=== PATIENT | female | born 2000 | race Caucasian/White ===

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

== ENCOUNTER 2022-09-01 18:11 | Emergency (ER) | payer OTHER ==
--- OUTSIDE RECORDS SUMMARY | 2022-09-01 18:21 | XMS REPORT | Continuity of Care Document ---
:2000 Author Organization [facility] t Address [address] [place] [address] Care Team Providers Name Role Phone Isiah MCKAY, [facility] Primary Care Physician [phone] RADIOLOGY Attending Clinician Unavailable James Parker Attending Clinician Unavailable Doctor Unassigned, Paul Attending Clinician Unavailable ELIZABETH LI Attending Clinician Unavailable Elizabeth Ortiz Attending Clinician Carmen Flores Attending Clinician CARMEN GOSS Attending Clinician Unavailable CARMEN RODRIGUEZ Attending Clinician Unavailable James Parker Admitting Clinician Unavailable ELIZABETH LI Admitting Clinician Unavailable Payers Payer Name Policy Type Policy Number Effective Date Expiration Date Guido dubose [facility] [id number] 2022 00:00:00 [place] [id number] 2020 00:00:00 Problems Condition Condition Condition Status Onset Resolution Last Treating Co mments Source Name Details Category Date Date Treatment Clinician Date No known No known Disease Unive rs active active ity of problems problems [facility] Allergies, Adverse Reactions, Alerts Allergy Allergy Status Severity Reaction(s) Onset Inactive Treating Comm ents Source Name Type Date Date Clinician No Known DA Active [facility] 6-24 Clear s 00:00: [place] 00 [facility] No Known DA Active U [facility] Allergie 6-20 Clear s 00:00: [place] 00 [facility] NO KNOWN Drug Active Univers ALLERGIE Class ity of S [facility] Social History Social Habit Start Date Stop Date Quantity Comments Source Exposure to Not sure [facility] SARS-CoV-2 [facility] (event) Branch History of Passive smoker University of tobacco use [facility] Tobacco use and 2020-05-09 2020-05-09 Smokeless tobacco Un iversity of exposure 00:00:00 00:00:00 non-user [facility] Sex Assigned At [birth year] Universit y of 00:00:00 00:00:00 [facility] Smoking Status Start Date Stop Date Source Never smoked tobacco [facility] Medications Ordered Filled Start Stop Current Ordering Indication Dosage Frequency Signature Comments Components Source Medication Medication Date Date Medication? Clinician (SIG) Name Name TAKE ONE 2021-10 No AND HALF 0-25 (1.5 00:00: TABLETS)[place] 00 LY IN THE EVENING WITH FOOD cephalexin No 1mg 500 mg 5-20 tablet 00:00: 00 Dose 2021-0 No Unknown 3-04 00:00: 00 Dose 2021-0 No Unknown 3-04 00:00: 00 Dose 2021-0 No Unknown 3-04 00:00: 00 Dose 2021-0 No Unknown 3-04 00:00: 00 Dose 2-0 No Unknown 3-04 00:00: 00 Dose 2021-0 No Unknown 3-04 00:00: 00 Dose 2-0 No Unknown 3-04 00:00: 00 Dose 2-0 No Unknown 3-04 00:00: 00 Dose 2-0 No Unknown 3-04 00:00: 00 Dose 2-0 No Unknown 3-04 00:00: 00 Dose 2-0 No Unknown 3-04 00:00: 00 Dose 2-0 No Unknown 3-04 00:00: 00 Dose 2-0 No Unknown 3-04 00:00: 00 Dose 2022-0 No Unknown 3-04 00:00: 00 Dose 2-0 No Unknown 3-04 00:00: 00 Dose 2022-0 No Unknown 3-04 00:00: 00 Dose 2022-0 No Unknown 3-04 00:00: 00 Dose 2022-0 No Unknown 3-04 00:00: 00 Dose 2022-0 No Unknown 3-04 00:00: 00 Dose 2022-0 No Unknown 3-04 00:00: 00 Dose 2022-0 No Unknown 3-04 00:00: 00 Dose 2022-0 No Unknown 3-04 00:00: 00 Dose 2022-0 No Unknown 3-04 00:00: 00 Dose 2022-0 No Unknown 3-04 00:00: 00 Dose 2022-0 No Unknown 3-04 00:00: 00 Dose 2022-0 No Unknown 3-04 00:00: 00 Dose 2022-0 No Unknown 3-04 00:00: 00 Dose 2022-0 No Unknown 3-04 00:00: 00 Dose 2022-0 No Unknown 3-04 00:00: 00 Dose 2022-0 No Unknown 3-04 00:00: 00 Dose 2022-0 No Unknown 3-04 00:00: 00 Dose 2022-0 No Unknown 3-04 00:00: 00 Dose 2022-0 No Unknown 3-04 00:00: 00 Dose 2022-0 No Unknown 3-04 00:00: 00 Dose 2022-0 No Unknown 3-04 00:00: 00 Dose 2022-0 No Unknown 3-04 00:00: 00 Dose 2022-0 No Unknown 3-04 00:00: 00 Dose 2022-0 No Unknown 3-04 00:00: 00 Dose 2022-0 No Unknown 3-04 00:00: 00 Dose 2022-0 No Unknown 3-04 00:00: 00 Dose 2022-0 No Unknown 3-04 00:00: 00 Dose 2022-0 No Unknown 3-04 00:00: 00 Dose 2022-0 No Unknown 3-04 00:00: 00 Dose 2022-0 No Unknown 3-04 00:00: 00 Dose 2022-0 No Unknown 3-04 00:00: 00 fluconazole 2022-0 No 1mg 150 mg 2-07 tablet 00:00: 00 clotrimazol 2-0 No 1% e 1 % 1-12 vaginal 00:00: cream 00 metronidazo 2-0 No 1mg le 500 mg 1-10 tablet 00:00: 00 Zofran 4 mg 2020-10 No 1mg tablet 2-13 00:00: 00 Zofran 4 mg 2020-10 No 1mg tablet 1-16 00:00: 00 Dose 2020-10 No Unknown 1-16 00:00: 00 Zofran 4 mg 2020-10 No 1mg tablet 1- 00:00: 00 clotrimazol 2020-10 No 1% e 1 % 0-19 vaginal 00:00: cream 00 Xulane 150 2019-10 No 1mcg/24 mcg-35 1-20 hr mcg/24 hr 00:00: transdermal 00 patch CETIRIZINE 2019- No Take by Uni vers HCL (ZYRTEC 7 07-27 mouth. ity o f ORAL) 20:12: 00:00 [place] : [facility] CETIRIZINE 2019- No Take by Uni vers HCL (ZYRTEC 7 0727 mouth. ity o f ORAL) 20:12: 00:00 [place] 01 :00 [facility] No known 2020-0 No Univers medications 7- ity of 15:27: [address] No known 2020-0 No Univers medications 7- ity of 15:27: [address] No known 2020-0 No No known Unive rs medications 7 medication it y of 15:27: s [address] CETIRIZINE Yes Take by Univ ers HCL (ZYRTEC 8-18 mouth. ity of ORAL) 18:14: [address] ketoconazol Yes [id number] Apply to Univers e (NIZORAL) 6- area(s) ity o f 2 % cream 00:00: daily. [address] ketoconazol 2020- No [id number] Apply to Univers e (NIZORAL) 04-05 area(s) ity of 2 % cream 00:00: 00:00 daily. [place] 00 :00 [facility] ketoconazol 2020- No [id number] Apply to Univers e (NIZORAL) 04-05 area(s) ity of 2 % cream 00:00: 00:00 daily. [place] 00 :00 [facility] No known No Univers medications ity of [facility] No known No Univers medications [facility] Immunizations Ordered Immunization Filled Immunization Date Status Commen ts Source Name Name Meningococcal 2020-05-09 Completed University of Polysaccharide 00:00:00 [place] [facility] (groups A, C, Y and Branc h W-135) conjugate vaccine (MCV4P) Meningococcal B, OMV 2020-05-09 Completed Univ ersity of 00:00:00 [facility] HPV9 2020-05-09 Completed University of 00:00:00 [facility] Meningococcal 2020-05-09 Completed University of Polysaccharide 00:00:00 [place] [facility] (groups A, C, Y and Branc h W-135) conjugate vaccine (MCV4P) Meningococcal B, OMV 2020-05-09 Completed Univ ersity of 00:00:00 [facility] HPV9 2020-05-09 Completed University of 00:00:00 [facility] Meningococcal 2020-05-09 Completed University of Polysaccharide 00:00:00 [place] [facility]rent (groups A, C, Y and Branc h W-135) conjugate vaccine (MCV4P) Meningococcal B, OMV 2020-05-09 Completed Univ ersity of 00:00:00 [facility] HPV9 2020-05-09 Completed University of 00:00:00 [facility] Meningococcal 2020-05-09 Completed University of Polysaccharide 00:00:00 [place] [facility]rent (groups A, C, Y and Branc h W-135) conjugate vaccine (MCV4P) Meningococcal B, OMV 2020-05-09 Completed Univ ersity of 00:00:00 [facility] HPV9 2020-05-09 Completed University of 00:00:00 [facility] Meningococcal 2020-05-09 Completed University of Polysaccharide 00:00:00 [place] [facility]rent (groups A, C, Y and Branc h W-135) conjugate vaccine (MCV4P) Meningococcal B, OMV 2020-05-09 Completed Univ ersity of 00:00:00 [facility] HPV9 2020-05-09 Completed University of 00:00:00 [facility] Meningococcal 2020-05-09 Completed University of Polysaccharide 00:00:00 [place] [facility]rent (groups A, C, Y and Branc h W-135) conjugate vaccine (MCV4P) Meningococcal B, OMV 2020-05-09 Completed Univ ersity of 00:00:00 [facility] HPV9 2020-05-09 Completed University of 00:00:00 [facility] Meningococcal 2020-05-09 Completed University of Polysaccharide 00:00:00 [facility] trent (groups A, C, Y and Branc h W-135) conjugate vaccine (MCV4P) Meningococcal B, OMV 2020-05-09 Completed Univ ersity of 00:00:00 [facility] HPV9 2020-05-09 Completed University of 00:00:00 [facility] Meningococcal Vaccine 2015-01-17 Completed Uni versity of 00:00:00 [facility] TDAP 2015-01-17 Completed University of 00:00:00 [facility] Meningococcal Vaccine 2015-01-17 Completed Uni versity of 00:00:00 [facility] TDAP 2015-01-17 Completed University of 00:00:00 [facility] Meningococcal Vaccine 2015-01-17 Completed Uni versity of 00:00:00 [facility] TDAP 2015-01-17 Completed University of 00:00:00 [facility] Meningococcal Vaccine 2015-01-17 Completed Uni versity of 00:00:00 [facility] TDAP 2015-01-17 Completed University of 00:00:00 [facility] Meningococcal Vaccine 2015-01-17 Completed Uni versity of 00:00:00 [facility] TDAP 2015-01-17 Completed University of 00:00:00 [facility] Meningococcal Vaccine 2015-01-17 Completed Uni versity of 00:00:00 [facility] TDAP 2015-01-17 Completed University of 00:00:00 [facility] Meningococcal Vaccine 2015-01-17 Completed Uni versity of 00:00:00 [facility] TDAP 2015-01-17 Completed University of 00:00:00 [facility] Varicella 2009-10-04 Completed University of (varivax)(chicken 00:00:00 [place] [facility] pox) Branch Varicella 2009-10-04 Completed University of (varivax)(chicken 00:00:00 [place] [facility] pox) Branch Varicella 2009-10-04 Completed University of (varivax)(chicken 00:00:00 [place] [facility] pox) Branch Varicella 2009-10-04 Completed University of (varivax)(chicken 00:00:00 [place] [facility] pox) Branch Varicella 2009-10-04 Completed University of (varivax)(chicken 00:00:00 [place] [facility] pox) Branch Varicella 2009-10-04 Completed University of (varivax)(chicken 00:00:00 [place] [facility] pox) Branch Varicella 2009-10-04 Completed University of (varivax)(chicken 00:00:00 [place] [facility] pox) Branch HEPATITIS A 2009-03-11 Completed University of 00:00:00 [facility] HEPATITIS A 2009-03-11 Completed University of 00:00:00 [facility] HEPATITIS A 2009-03-11 Completed University of 00:00:00 [facility] HEPATITIS A 2009-03-11 Completed University of 00:00:00 [facility] HEPATITIS A 2009-03-11 Completed University of 00:00:00 [facility] HEPATITIS A 2009-03-11 Completed University of 00:00:00 [facility] HEPATITIS A 2009-03-11 Completed University of 00:00:00 [facility] DTAP 2006-11-20 Completed University of 00:00:00 [facility] HEPATITIS A 2006-11-20 Completed University of 00:00:00 [facility] MMR 2006-11-20 Completed University of 00:00:00 [facility] Polio (IPV/OPV) 2006-11-20 Completed Universit y of 00:00:00 [facility] DTAP 2006-11-20 Completed University of 00:00:00 [facility] HEPATITIS A 2006-11-20 Completed University of 00:00:00 [facility] MMR 2006-11-20 Completed University of 00:00:00 [facility] Polio (IPV/OPV) 2006-11-20 Completed Universit y of 00:00:00 [facility] DTAP 2006-11-20 Completed University of 00:00:00 [facility] HEPATITIS A 2006-11-20 Completed University of 00:00:00 [facility] MMR 2006-11-20 Completed University of 00:00:00 [facility] Polio (IPV/OPV) 2006-11-20 Completed Universit y of 00:00:00 [facility] DTAP 2006-11-20 Completed University of 00:00:00 [facility] DTAP 2006-11-20 Completed University of 00:00:00 [facility] HEPATITIS A 2006-11-20 Completed University of 00:00:00 [facility] MMR 2006-11-20 Completed University of 00:00:00 [facility] Polio (IPV/OPV) 2006-11-20 Completed Universit y of 00:00:00 [facility] DTAP 2006-11-20 Completed University of 00:00:00 [facility] HEPATITIS A 2006-11-20 Completed University of 00:00:00 [facility] MMR 2006-11-20 Completed University of 00:00:00 [facility] HEPATITIS A 2006-11-20 Completed University of 00:00:00 [facility] Polio (IPV/OPV) 2006-11-20 Completed Universit y of 00:00:00 [facility] MMR 2006-11-20 Completed University of 00:00:00 [facility] Polio (IPV/OPV) 2006-11-20 Completed Universit y of 00:00:00 [facility] DTAP 2006-11-20 Completed University of 00:00:00 [facility] HEPATITIS A 2006-11-20 Completed University of 00:00:00 [facility] MMR 2006-11-20 Completed University of 00:00:00 [facility] Polio (IPV/OPV) 2006-11-20 Completed Universit y of 00:00:00 [facility] DTAP 2003-10-18 Completed University of 00:00:00 [facility] HIB 4 Dose Schedule 2003-10-18 Completed Unive rsity of 00:00:00 [facility] Pneumococcal 7 2003-10-18 Completed University of Conjugate, PCV7 00:00:00 [place] [facility] (Prevnar7) Branch DTAP 2003-10-18 Completed University of 00:00:00 [facility] HIB 4 Dose Schedule 2003-10-18 Completed Unive rsity of 00:00:00 [facility] Pneumococcal 7 2003-10-18 Completed University of Conjugate, PCV7 00:00:00 [place] [facility] (Prevnar7) Branch DTAP 2003-10-18 Completed University of 00:00:00 [facility] HIB 4 Dose Schedule 2003-10-18 Completed Unive rsity of 00:00:00 [facility] DTAP 2003-10-18 Completed University of 00:00:00 [facility] Pneumococcal 7 2003-10-18 Completed University of Conjugate, PCV7 00:00:00 [place] [facility] (Prevnar7) Branch DTAP 2003-10-18 Completed University of 00:00:00 [facility] HIB 4 Dose Schedule 2003-10-18 Completed Unive rsity of 00:00:00 [facility] Pneumococcal 7 2003-10-18 Completed University of Conjugate, PCV7 00:00:00 [place] [facility] (Prevnar7) Branch DTAP 2003-10-18 Completed University of 00:00:00 [facility] HIB 4 Dose Schedule 2003-10-18 Completed Unive rsity of 00:00:00 [facility] HIB 4 Dose Schedule 2003-10-18 Completed Unive rsity of 00:00:00 [facility] Pneumococcal 7 2003-10-18 Completed University of Conjugate, PCV7 00:00:00 [place] [facility] (Prevnar7) Branch Pneumococcal 7 2003-10-18 Completed University of Conjugate, PCV7 00:00:00 [place] [facility] (Prevnar7) Branch DTAP 2003-10-18 Completed University of 00:00:00 [facility] HIB 4 Dose Schedule 2003-10-18 Completed Unive rsity of 00:00:00 [facility] Pneumococcal 7 2003-10-18 Completed University of Conjugate, PCV7 00:00:00 [place] [facility] (Prevnar7) Branch MMR 2003-07-27 Completed University of 00:00:00 [facility] Varicella 2003-07-27 Completed University of (varivax)(chicken 00:00:00 [place] [facility] pox) Branch MMR 2003-07-27 Completed University of 00:00:00 [facility] Varicella 2003-07-27 Completed University of (varivax)(chicken 00:00:00 [place] [facility] pox) Branch MMR 2003-07-27 Completed University of 00:00:00 [facility] Varicella 2003-07-27 Completed University of (varivax)(chicken 00:00:00 [place] [facility] pox) Branch MMR 2003-07-27 Completed University of 00:00:00 [facility] Varicella 2003-07-27 Completed University of (varivax)(chicken 00:00:00 [facility] edical pox) Branch MMR 2003-07-27 Completed University of 00:00:00 [facility] Varicella 2003-07-27 Completed University of (varivax)(chicken 00:00:00 [place] [facility] pox) Branch MMR 2003-07-27 Completed University of 00:00:00 [facility] Varicella 2003-07-27 Completed University of (varivax)(chicken 00:00:00 [place] [facility] pox) Branch MMR 2003-07-27 Completed University of 00:00:00 [facility] Branch Varicella 2003-07-27 Completed University of (varivax)(chicken 00:00:00 [place] [facility] pox) Branch HIB 4 Dose Schedule 2003 Completed Unive rsity of 00:00:00 [facility] Branch HIB 4 Dose Schedule 2003 Completed Unive rsity of 00:00:00 [facility] Branch HIB 4 Dose Schedule 2003 Completed Unive rsity of 00:00:00 [facility] HIB 4 Dose Schedule 2003 Completed Unive rsity of 00:00:00 [facility] HIB 4 Dose Schedule 2003 Completed Unive rsity of 00:00:00 [facility] HIB 4 Dose Schedule 2003 Completed Unive rsity of 00:00:00 [facility] HIB 4 Dose Schedule 2003 Completed Unive rsity of 00:00:00 [facility] DTAP 2003-02-03 Completed University of 00:00:00 [facility] HIB 4 Dose Schedule 2003-02-03 Completed Unive rsity of 00:00:00 [facility] Hep B, Adol or Pedi 2003-02-03 Completed Unive rsity of Dosage 00:00:00 [facility] Polio (IPV/OPV) 2003-02-03 Completed Universit y of 00:00:00 [facility] DTAP 2003-02-03 Completed University of 00:00:00 [facility] HIB 4 Dose Schedule 2003-02-03 Completed Unive rsity of 00:00:00 [facility] Hep B, Adol or Pedi 2003-02-03 Completed Unive rsity of Dosage 00:00:00 [facility] Polio (IPV/OPV) 2003-02-03 Completed Universit y of 00:00:00 [facility] DTAP 2003-02-03 Completed University of 00:00:00 [facility] HIB 4 Dose Schedule 2003-02-03 Completed Unive rsity of 00:00:00 [facility] DTAP 2003-02-03 Completed University of 00:00:00 [facility] Hep B, Adol or Pedi 2003-02-03 Completed Unive rsity of Dosage 00:00:00 [facility] Polio (IPV/OPV) 2003-02-03 Completed Universit y of 00:00:00 [facility] Branch DTAP 2003-02-03 Completed University of 00:00:00 [facility] HIB 4 Dose Schedule 2003-02-03 Completed Unive rsity of 00:00:00 [facility] Branch Hep B, Adol or Pedi 2003-02-03 Completed Unive rsity of Dosage 00:00:00 [facility] Polio (IPV/OPV) 2003-02-03 Completed Universit y of 00:00:00 [facility] HIB 4 Dose Schedule 2003-02-03 Completed Unive rsity of 00:00:00 [facility] Branch DTAP 2003-02-03 Completed University of 00:00:00 [facility] HIB 4 Dose Schedule 2003-02-03 Completed Unive rsity of 00:00:00 [facility] Branch Hep B, Adol or Pedi 2003-02-03 Completed Unive rsity of Dosage 00:00:00 [facility] Polio (IPV/OPV) 2003-02-03 Completed Universit y of 00:00:00 [facility] Hep B, Adol or Pedi 2003-02-03 Completed Unive rsity of Dosage 00:00:00 [facility] Polio (IPV/OPV) 2003-02-03 Completed Universit y of 00:00:00 [facility] DTAP 2003-02-03 Completed University of 00:00:00 [facility] HIB 4 Dose Schedule 2003-02-03 Completed Unive rsity of 00:00:00 [facility] Branch Hep B, Adol or Pedi 2003-02-03 Completed Unive rsity of Dosage 00:00:00 [facility] Polio (IPV/OPV) 2003-02-03 Completed Universit y of 00:00:00 [facility] HIB 4 Dose Schedule 2002 Completed Unive rsity of 00:00:00 [facility] Branch Polio (IPV/OPV) 2002 Completed Universit y of 00:00:00 [facility] DTAP 2002 Completed University of 00:00:00 [facility] HIB 4 Dose Schedule 2002 Completed Unive rsity of 00:00:00 [facility] Polio (IPV/OPV) 2002 Completed Universit y of 00:00:00 [facility] DTAP 2002 Completed University of 00:00:00 [place] [facility] DTAP 2002 Completed University of 00:00:00 [facility] HIB 4 Dose Schedule 2002 Completed Unive rsity of 00:00:00 [facility] Polio (IPV/OPV) 2002 Completed Universit y of 00:00:00 [facility] Branch DTAP 2002 Completed University of 00:00:00 [facility] HIB 4 Dose Schedule 2002 Completed Unive rsity of 00:00:00 [facility] HIB 4 Dose Schedule 2002 Completed Unive rsity of 00:00:00 [facility] Polio (IPV/OPV) 2002 Completed Universit y of 00:00:00 [facility] DTAP 2002 Completed University of 00:00:00 [facility] HIB 4 Dose Schedule 2002 Completed Unive rsity of 00:00:00 [facility] Polio (IPV/OPV) 2002 Completed Universit y of 00:00:00 [facility] Polio (IPV/OPV) 2002 Completed Universit y of 00:00:00 [facility] DTAP 2002 Completed University of 00:00:00 [facility] HIB 4 Dose Schedule 2002 Completed Unive rsity of 00:00:00 [facility] Polio (IPV/OPV) 2002 Completed Universit y of 00:00:00 [facility] DTAP 2002 Completed University of 00:00:00 [facility] HIB 4 Dose Schedule 2002 Completed Unive rsity of 00:00:00 [facility] Polio (IPV/OPV) 2002 Completed Universit y of 00:00:00 [facility] Pneumococcal 7 2002 Completed University of Conjugate, PCV7 00:00:00 [place] [facility] (Prevnar7) Branch DTAP 2002 Completed University of 00:00:00 [facility] HIB 4 Dose Schedule 2002 Completed Unive rsity of 00:00:00 [facility] Polio (IPV/OPV) 2002 Completed Universit y of 00:00:00 [facility] Pneumococcal 7 2002 Completed University of Conjugate, PCV7 00:00:00 [place] [facility] (Prevnar7) [facility] DTAP 2002 Completed University of 00:00:00 [facility] DTAP 2002 Completed University of 00:00:00 [facility] HIB 4 Dose Schedule 2002 Completed Unive rsity of 00:00:00 [facility] Polio (IPV/OPV) 2002 Completed Universit y of 00:00:00 [facility] Pneumococcal 7 2002 Completed University of Conjugate, PCV7 00:00:00 [place] [facility] (Prevnar7) Branch DTAP 2002 Completed University of 00:00:00 [facility] HIB 4 Dose Schedule 2002 Completed Unive rsity of 00:00:00 [facility] HIB 4 Dose Schedule 2002 Completed Unive rsity of 00:00:00 [facility] Polio (IPV/OPV) 2002 Completed Universit y of 00:00:00 [facility] Pneumococcal 7 2002 Completed University of Conjugate, PCV7 00:00:00 [place] [facility] (Prevnar7) Branch DTAP 2002 Completed University of 00:00:00 [facility] HIB 4 Dose Schedule 2002 Completed Unive rsity of 00:00:00 [facility] Polio (IPV/OPV) 2002 Completed Universit y of 00:00:00 [facility] Pneumococcal 7 2002 Completed University of Conjugate, PCV7 00:00:00 [place] [facility] (Prevnar7) [facility] Polio (IPV/OPV) 2002 Completed [facility] 00:[facility]00 [facility] System Pneumococcal 7 2002 Completed University of Conjugate, PCV7 00:00:00 [place] [facility] (Prevnar7) Branch DTAP 2002 Completed University of 00:00:00 [facility] HIB 4 Dose Schedule 2002 Completed Unive rsity of 00:00:00 [facility] Polio (IPV/OPV) 2002 Completed Universit y [facility] 00:00:00 [facility] Pneumococcal 7 2002 Completed University of Conjugate, PCV7 00:00:00 [place] [facility] (Prevnar7) [facility] DTAP 2002 Completed University of 00:00:00 [facility] Hep B, Adol or Pedi 2002 Completed Unive rsity of Dosage 00:00:00 [facility] Hep B, Adol or Pedi 2002 Completed Unive rsity of Dosage 00:00:00 [facility] Hep B, Adol or Pedi 2002 Completed Unive rsity of Dosage 00:00:00 [facility] Hep B, Adol or Pedi 2002 Completed Unive rsity of Dosage 00:00:00 [facility] Hep B, Adol or Pedi 2002 Completed Unive rsity of Dosage 00:00:00 [facility] Hep B, Adol or Pedi 2002 Completed Unive rsity of Dosage 00:00:00 [facility] Hep B, Adol or Pedi 2002 Completed Unive rsity of Dosage 00:00:00 [facility] Hep B, Adol or Pedi 2002 Completed Unive rsity of Dosage 00:00:00 [facility] Hep B, Adol or Pedi 2002 Completed Unive rsity of Dosage 00:00:00 [facility] Hep B, Adol or Pedi 2002 Completed Unive rsity of Dosage 00:00:00 [facility] Hep B, Adol or Pedi 2002 Completed Unive rsity of Dosage 00:00:00 [facility] Hep B, Adol or Pedi 2002 Completed Unive rsity of Dosage 00:00:00 [facility] Hep B, Adol or Pedi 2002 Completed Unive rsity of Dosage 00:00:00 [facility] Hep B, Adol or Pedi 2002 Completed Unive rsity of Dosage 00:00:00 [facility] Vital Signs Vital Name Observation Time Observation Value Comments Source Systolic blood 2020-05-09 20:05:00 95 mm[Hg] Univer sity of pressure [facility] Diastolic blood 2020-05-09 20:05:00 65 mm[Hg] Unive rsity of pressure [facility] Heart rate 2020-05-09 20:05:00 82 /min [facility] Body temperature 2020-05-09 20:05:00 36.78 [facility] Respiratory rate 2020-05-09 20:05:00 16 /min [facility] Body height 2020-05-09 20:05:00 162.6 cm [facility] Body weight 2020-05-09 20:05:00 52.249 kg [facility] BMI 2020-05-09 20:05:00 19.77 kg/m2 [facility] BP Systolic 2022-08-16 14:20:00 120 mm[Hg] BP Diastolic 2022-08-16 14:20:00 72 mm[Hg] Weight Measured 2022-08-16 14:20:00 149.40 pounds Height Measured 2022-08-16 14:20:00 64.54 inches Body Temperature 2022-08-16 14:20:00 98.30 degrees Heart Rate 2022-08-16 14:20:00 88.00 /min Respiratory Rate 2022-08-16 14:20:00 18.00 /min BP Systolic 2022-03-23 09:57:00 125 mm[Hg] BP Diastolic 2022-03-23 09:57:00 75 mm[Hg] Weight Measured 2022-03-23 09:57:00 176.20 pounds Height Measured 2022-03-23 09:57:00 64.54 inches Body Temperature 2022-03-23 09:57:00 98.40 degrees Heart Rate 2022-03-23 09:57:00 91.00 /min Respiratory Rate 2022-03-23 09:57:00 BP Systolic 2022-03-08 16:40:00 106 mm[Hg] BP Diastolic 2022-03-08 16:40:00 69 mm[Hg] Weight Measured 2022-03-08 16:40:00 170.00 pounds Height Measured 2022-03-08 16:40:00 64.54 inches Body Temperature 2022-03-08 16:40:00 98.30 degrees Heart Rate 2022-03-08 16:40:00 94.00 /min Respiratory Rate 2022-03-08 16:40:00 16.00 /min BP Systolic 2022-03-02 14:11:00 115 mm[Hg] BP Diastolic 2022-03-02 14:11:00 70 mm[Hg] Weight Measured 2022-03-02 14:11:00 167.60 pounds Height Measured 2022-03-02 14:11:00 64.54 inches Body Temperature 2022-03-02 14:11:00 98.40 degrees Heart Rate 2022-03-02 14:11:00 83.00 /min Respiratory Rate 2022-03-02 14:11:00 BP Systolic 2022-02-09 14:05:00 120 mm[Hg] BP Diastolic 2022-02-09 14:05:00 68 mm[Hg] Weight Measured 2022-02-09 14:05:00 159.60 pounds Height Measured 2022-02-09 14:05:00 64.54 inches Body Temperature 2022-02-09 14:05:00 98.00 degrees Heart Rate 2022-02-09 14:05:00 85.00 /min Respiratory Rate 2022-02-09 14:05:00 BP Systolic 2022-01-15 13:49:00 109 mm[Hg] BP Diastolic 2022-01-15 13:49:00 70 mm[Hg] Weight Measured 2022-01-15 13:49:00 151.00 pounds Height Measured 2022-01-15 13:49:00 64.54 inches Body Temperature 2022-01-15 13:49:00 98.10 degrees Heart Rate 2022-01-15 13:49:00 77.00 /min Respiratory Rate 2022-01-15 13:49:00 BP Systolic 2021-12-18 16:18:00 115 mm[Hg] BP Diastolic 2021-12-18 16:18:00 75 mm[Hg] Weight Measured 2021-12-18 16:18:00 143.40 pounds Height Measured 2021-12-18 16:18:00 64.54 inches Body Temperature 2021-12-18 16:18:00 97.90 degrees Heart Rate 2021-12-18 16:18:00 76.00 /min Respiratory Rate 2021-12-18 16:18:00 BP Systolic 2021-12-15 11:48:00 115 mm[Hg] BP Diastolic 2021-12-15 11:48:00 75 mm[Hg] Weight Measured 2021-12-15 11:48:00 143.20 pounds Height Measured 2021-12-15 11:48:00 64.45 inches Body Temperature 2021-12-15 11:48:00 97.60 degrees Heart Rate 2021-12-15 11:48:00 81.00 /min Respiratory Rate 2021-12-15 11:48:00 BP Systolic 2021-11-20 14:19:00 105 mm[Hg] BP Diastolic 2021-11-20 14:19:00 68 mm[Hg] Weight Measured 2021-11-20 14:19:00 137.00 pounds Height Measured 2021-11-20 14:19:00 64.45 inches Body Temperature 2021-11-20 14:19:00 98.40 degrees Heart Rate 2021-11-20 14:19:00 88.00 /min Respiratory Rate 2021-11-20 14:19:00 16.00 /min BP Systolic 2021-10-23 13:59:00 100 mm[Hg] BP Diastolic 2021-10-23 13:59:00 66 mm[Hg] Weight Measured 2021-10-23 13:59:00 129.60 pounds Height Measured 2021-10-23 13:59:00 64.45 inches Body Temperature 2021-10-23 13:59:00 98.40 degrees Heart Rate 2021-10-23 13:59:00 87.00 /min Respiratory Rate 2021-10-23 13:59:00 16.00 /min Procedures Procedure Date / Time Performing Clinician Source Performed [id number] 2022-04-07 00:00:00 MAXBA [facility] [id number] 2022-04-07 00:00:00 MAXBA [facility] REFERRAL- 2022-02-09 05:01:00 Doctor Unassigned, No [facility] REQUEST/RESPONSE Name Medical Branch US FIRST 2021-09-06 19:50:00 Elizabeth Li [facility] TRIMESTER LESS THAN 14 Medical B ranch WEEKS WITH TRANSVAGINAL ASSIGNMENT OF BENEFITS 2021-09-06 18:56:20 Doctor Unassigned, No [facility] [place] Name Medical Branch AUTHORIZATION TO RELEASE 2020-05-19 05:01:00 Doctor Unassigned, No [facility] PHI TO [facility] POCT TEST 2020-05-09 21:11:00 Carmen Goss [facility] MENACTRA (MCV4-D) 2020-05-09 20:35:[address] [facility] VACCINE [facility] GARDASIL 9 (HPV 9V) 2020-05-09 20:35:02 [facility] VACCINE Medical Branch MENINGOCOCCAL B VACCINE, 2020-05-09 20:35:02 Carmen Goss [facility] OMV, 2 DOSE, IM Medical Branch NOTICE OF PRIVACY 2020-05-09 19:45:15 Doctor Unassigned, No [facility] Plan of Care Planned Activity Planned Date Details Comments Source Goal Plan of Care Note [code = 87952-4] Goal Plan of Care Note [code = 54953-5] Goal Plan of Care Note [code = 28605-9] Goal Plan of Care Note [code = 00391-4] Goal Plan of Care Note [code = 32536-8] Goal Plan of Care Note [code = 43943-2] Goal Plan of Care Note [code = 07504-1] Goal Plan of Care Note [code = 69749-3] Goal Plan of Care Note [code = 81935-4] Goal Plan of Care Note [code = 40072-2] Goal Plan of Care Note [code = 82855-6] Goal Plan of Care Note [code = 35816-9] Goal Plan of Care Note [code = 53598-6] Goal Plan of Care Note [code = 56577-8] Goal Plan of Care Note [code = 13756-5] Goal Plan of Care Note [code = 22108-5] Goal Plan of Care Note [code = 72821-2] Goal Plan of Care Note [code = 88782-8] Goal Plan of Care Note [code = 37899-1] Goal Plan of Care Note [code = 22081-6] Goal Plan of Care Note [code = 32054-6] Goal Plan of Care Note [code = 14725-5] Goal Plan of Care Note [code = 44291-0] Goal Plan of Care Note [code = 86309-8] Goal Plan of Care Note [code = 29618-2] Goal Plan of Care Note [code = 89345-6] Goal Plan of Care Note [code = 27474-6] Goal Plan of Care Note [code = 19530-6] Goal Plan of Care Note [code = 62563-1] Goal Plan of Care Note [code = 71943-7] Goal Plan of Care Note [code = 17878-0] Goal Plan of Care Note [code = 57184-6] Goal Plan of Care Note [code = 15918-3] Goal Plan of Care Note [code = 16359-4] Goal Plan of Care Note [code = 12759-5] Encounters Start End Encounter Admission Attending Care Care Encounter Source Date/Time Date/Time Type Type Clinicians Facility Department ID 2022-09-03 2022-09-03 Outpatient R RADIOLOGY [facility] [id number] Univers 00:00:00 00:00:00 [facility] 2022-08-29 2022-08-29 Outpatient R RADIOLOGY [facility] [id number] Univers 17:00:00 17:00:00 [facility] 2022-08-23 2022-08-23 Outpatient [facility] [id number] Guzman 16:34:17 16:34:[address] [place] 2022-08-16 2022-08-16 Outpatient [id number] 00:00:00 00:00:00 Visit [id number] 2022-04-06 2022-04-09 Inpatient EL Maximos, HCACL OBPP [id number] [facility] 16:16:00 19:28:00 James [id number] [facility] 2022-04-06 2022-04-09 Inpatient EL Maximos, HCACL OBPP [id number] [facility] 16:16:00 19:28:00 James 06 [facility] 2022-04-02 2022-04-03 Emergency EM Maximos, HCACL ARNAV [id number] [facility] 20:56:00 00:05:00 James 59 [facility] 2022-04-02 2022-04-02 Emergency EM Keith, HCACL ARNAV [id number] [facility] 20:56:00 20:56:00 James [id number] [facility] 2022-02-09 2022-02-09 Orders Doctor CONSTANCE 1.2.840.114 [id number] Univers 00:00:00 00:00:00 Only Unassigned, RODERICK 350.1.13.10 [facility]y of [facility] 4.2.7.2.686 Solitario as [id number] [place] [address] Branch 2021-09-06 2021-09-06 Outpatient R [facility] [id number] Univers 13:00:52 23:59:00 ELIZABETH itmckay [facility] 2021-09-06 2021-09-06 [facility] 1.2.840.114 [id number] Univers 13:00:00 23:59:00 Encounter Elizabeth CHOPRA [id number] ity of [place] 4.2.7.2.686 [facility] [id number] [facility] 806 Branch 2021-09-06 2021-09-06 Orders Doctor CONSTANCE 1.2.840.114 [id number] Univers 00:00:00 00:00:00 Only Unassigned, RODERICK 350.1.13.10 [facility] 4.2.7.2.686 Solitario as [id number] [facility] 009 Branch 2020-06-22 2020-06-22 Outpatient R [facility] [id number] Univers 15:30:00 15:30:00 ity [facility] 2020-05-19 2020-05-19 Orders Doctor CONSTANCE 1.2.840.114 [id number] Univers 00:00:00 00:00:00 Only Unassigned, RODERICK 350.1.13.10 [facility] 4.2.7.2.686 Solitario as [id number] [facility] 009 Branch 2020-05-16 2020-05-16 [facility] 1.2.840.114 [id number] Univers 00:00:00 00:00:00 Carmen Mark [employer] 350.1.13.10 it y of [facility] 4.2.7.2.686 Solitario as MATERNAL [id number] [facility] ical & CHILD [address] [place] [address] 2020-05-09 2020-05-09 Office Wolfgang [facility] [id number] [facility] 14:52:09 16:10:47 Visit Carmen Mark [employer] 350.1.13.10 it y of [facility] 4.2.7.2.686 Solitario as MATERNAL [id number] [facility] ical & CHILD [address] [place] [address] 2020-05-09 2020-05-09 [facility] [id number] Univers 14:30:00 14:30:00 CARMEN lino [facility] 2020-05-09 2020-05-09 Orders Doctor CONSTANCE 1.2.840.114 [id number] Univers 00:00:00 00:00:00 Only Unassigned, RODERICK 350.1.13.10 ity of [place] [facility] 4.2.7.2.686 Solitario as [id number] [address] 2020-05-06 2020-05-06 Outpatient Deonna RODRIGUEZ [facility] [id number] Univers 13:45:00 13:45:00 CARMEN lino [facility] Results Test Description Test Time Test Comments Results Result Comments Source SURGICAL 2022-04-12 15:34:00 Test Item Value Reference Range Interpretation [facility] RUN (test DATE: 04/12/22 [facility] PAGE 1 RUN TIME: 1534 Specimen Inquiry RUN USER: INTERFACE code = BERNIE SR) NT: ANDER ARAIZA ACCT #: [id number] LOC: JAEL U #: [id number] AGE/SX: 21/F ROOM: [facility] RE04/06/22REG DR: Hi Parker MD : 02 BED: 1 DIS: 04/09/22 STATUS: DIS IN TLOC: SPEC #: [id number] RECD: STATUS: ANAYA RE #: [id number] FÁTIMA: 04/07/22- SUBM DR: James Parker MD ENTERED: 04/09/22 SP TYPE: SURGICAL OTHR DR: ORDERED: [id number], ANATOMIC SPEC PROCEDURES: [id number] (03/15) TISSUES: A. PLACENTA, THIRD TRIMESTER (28 + WEEKS) CLINICAL HISTORY SAME - DELV IERED FINAL DIAGNOSIS Placenta, 40.1-week: Histologically mature edwards placenta (692 g, g reater than 90thpercentile for gestational age), meconium, acute subchorionitis. GROSS DESCRI PTION Received in formalin labeled placenta is a 692 g 15 x 15 x 3 cm placenta. The fetalsurface i s bluegray with light green staining and winding vessels on the surface. Thematernal surface is intact with adherent hemorrhage. The membranes are thin andtranslucent with some lig ht green staining. The eccentrically inserted three-vesselumbilical cord measures 36 cm in lengt h 1 cm in diameter. The parenchyma is beefy redwithout identified lesions. Submitted (A) membr anes (B) umbilical cord (C)-(E) parenchyma. Technical component performed at [facility],[address] [place] [address], [place] [address] Unless gross only, the diagnosis is based upon m icroscopic examination.Immunohistochemistry: This test was developed and its performance characteristicsdetermined by this laboratory. It has not been approved nor does it need approvalby the [place] FDA. Appro priate positive and negative controls are reviewed and judgedto be acceptable. This laboratory is certified under the Clinical Laboratory ImprovementAmendments (CLIA-88) as qualified to [facility] high complexity clinical laboratory testing. MICROSCOPIC DESCRIPTION Sections of the umbilical cord reveal three vessels without significant inflammation. Thefetal membranes are unrem arkable. The surface shows acute inflammation of thesubchorionic space (mater nal inflammatory response stage I grade 1). Maturation isappropriate for gestational age. The und erlying maternal decidua beneath the placentacontains a mixed inflammatory infiltrate. CONTINUED ON NEXT PAGE RUN DATE: 04/12/22 [place] - LAB PAGE 2 RUN TIME: 1534 Specimen Inquiry RUN USER: INTERFACE SPEC #: [id number] PATIENT: ANDER ARAIZA #[id number] (Continued) ------ CLINICAL INFORMATION , 40.1 EEKS Signed SIGNATURE ON FILE El Albright Deedee DO 04/12/22 1 534 END OF REPORT CORD ARTERIAL BLOOD [id number] 10:47:00 Test Item Value Reference Range Interpretation Comments CORD BLOOD PH (test TEST NOT PERFORMED 7.18-7.38 code = PH/C) CORD BLOOD PCO2 (test TEST NOT PERFORMED mmHg 32-66 code = PCO2/C) CORD BLOOD PO2 (test TEST NOT PERFORMED mmHg 6-30 code = PO2/C) CORD BLOOD HCO3 (test TEST NOT PERFORMED 17-27 code = HCO3/C) mmol/L BASE EXCESS CORD TEST NOT PERFORMED -8.0-0.0 (test code = JOSE J/C) mmol/L CBC W/AUTO [id number] 04:56:00 Test Item Value Reference Range Interpretation Comments WHITE BLOOD CELL (test code = 9.4 x10 3/uL 4.5-11.0 WBC) RED BLOOD CELL (test code = 3.96 x10 6/uL 3.54-5.02 N RBC) HEMOGLOBIN (test code = HGB) 12.5 g/dL 11.0-15.0 N HEMATOCRIT (test code = HCT) 37.1 % 33.0-45.0 N MEAN CELL VOLUME (test code = 93.7 fL 81.0-99.0 N MCV) MEAN CELL HGB (test code = MCH) 31.6 pg 27.0-33.0 N MEAN CELL HGB CONCETRATION 33.7 g/dL 33.0-37.0 N (test code = MCHC) RED CELL DISTRIBUTION WIDTH CV 13.2 % 11.5-14.5 N (test code = RDW) RED CELL DISTRIBUTION WIDTH SD 45.4 fL 37.0-54.0 N (test code = RDW-SD) PLATELET COUNT (test code = 199 x10 3/uL 150-400 N PLT) MEAN PLATELET VOLUME (test code 11.1 fL 7.0-9.0 H = MPV) NEUTROPHIL % (test code = NT%) 73.9 % 56.0-77.0 N IMMATURE GRANULOCYTE % (test 0.5 % 0.0-2.0 N code = IG%) LYMPHOCYTE % (test code = LY%) 18.4 % 14.0-32.0 N MONOCYTE % (test code = MO%) 5.9 % 4.8-9.0 N EOSINOPHIL % (test code = EO%) 1.2 % 0.3-3.7 N BASOPHIL % (test code = BA%) 0.1 % 0.0-2.0 N NUCLEATED RBC % (test code = 0.0 % 0-0 N NRBC%) NEUTROPHIL # (test code = NT#) 6.96 x10 3/uL 2.0-7.6 N IMMATURE GRANULOCYTE # (test 0.05 x10 3/uL 0.00-0.03 H code = IG#) LYMPHOCYTE # (test code = LY#) 1.73 x10 3/uL 1.0-3.8 N MONOCYTE # (test code = MO#) 0.56 x10 3/uL 0.1-0.8 N EOSINOPHIL # (test code = EO#) 0.11 x10 3/uL 0.0-0.2 N BASOPHIL # (test code = BA#) 0.01 x10 3/uL 0.0-0.2 N NUCLEATED RBC # (test code = 0.00 x10 3/uL 0.0-0.1 N NRBC#) MANUAL DIFF REQUIRED (test code NO = MDIFF) CORD VENOUS BLOOD [id number] 11:30:00 Test Item Value Reference Range Interpretation Comments CORD VENOUS PH (test code = PHCV) 7.39 7.25-7.45 N CORD VENOUS PCO2 (test code = 37 mmHg 27-49 N PCO2CV) CORD VENOUS PO2 (test code = 31 mmHg 17-41 N PO2CV) CORD VENOUS HCO3 (test code = 22.6 MMOL/L 12-28 N HCO3CV) CORD VENOUS BASE EXCESS (test -2.4 mmol/L -8.0-0.00 N code = BEXCV) CORD VENOUS 02 SAT (test code = 60 % O2SCV) CORD ARTERIAL BLOOD [id number] 11:30:00 Test Item Value Reference Range Interpretation Comments CORD BLOOD PH (test code = PH/C) 7.40 7.18-7.38 H CORD BLOOD PCO2 (test code = 37 mmHg 32-66 N PCO2/C) CORD BLOOD PO2 (test code = 30 mmHg 6-30 N PO2/C) CORD BLOOD HCO3 (test code = 23 mmol/L 17-27 N HCO3/C) BASE EXCESS CORD (test code = -1.7 mmol/L -8.0-0.0 N JOSE J/C) O2 SATURATION (test code = O2S/C) 57 % 72-77 L RAPID PLASMA [id number] 10:57:00 Test Item Value Reference Range Interpretation Comments RAPID PLASMA REAGIN (test code = NONREACTIVE NONREACTIVE RPR) AG HEPATITIS B [id number] 10:57:00 Test Item Value Reference Range Interpretation Comments AG HEPATITIS B SURFACE NON REACTIVE INDEX NonReactive (test code = HBSAG) AB HIV 1 10:57:00 Test Item Value Reference Range Interpretation Comments AB HIV 1 2 (test code = [id number]) Nonreactive Nonreactive CBC W/AUTO [id number] 00:01:00 Test Item Value Reference Range Interpretation Comments WHITE BLOOD CELL (test code = 5.0 x10 3/uL 4.5-11.0 N WBC) RED BLOOD CELL (test code = 3.99 x10 6/uL 3.54-5.02 N RBC) HEMOGLOBIN (test code = HGB) 12.9 g/dL 11.0-15.0 N HEMATOCRIT (test code = HCT) 37.0 % 33.0-45.0 N MEAN CELL VOLUME (test code = 92.7 fL 81.0-99.0 N MCV) MEAN CELL HGB (test code = MCH) 32.3 pg 27.0-33.0 N MEAN CELL HGB CONCETRATION 34.9 g/dL 33.0-37.0 N (test code = MCHC) RED CELL DISTRIBUTION WIDTH CV 13.3 % 11.5-14.5 N (test code = RDW) RED CELL DISTRIBUTION WIDTH SD 45.1 fL 37.0-54.0 N (test code = RDW-SD) PLATELET COUNT (test code = 220 x10 3/uL 150-400 N PLT) MEAN PLATELET VOLUME (test code 10.8 fL 7.0-9.0 H = MPV) NEUTROPHIL % (test code = NT%) 65.3 % 56.0-77.0 N IMMATURE GRANULOCYTE % (test 0.8 % 0.0-2.0 N code = IG%) LYMPHOCYTE % (test code = LY%) 23.7 % 14.0-32.0 N MONOCYTE % (test code = MO%) 8.2 % 4.8-9.0 N EOSINOPHIL % (test code = EO%) 1.6 % 0.3-3.7 N BASOPHIL % (test code = BA%) 0.4 % 0.0-2.0 N NUCLEATED RBC % (test code = 0.0 % 0-0 N NRBC%) NEUTROPHIL # (test code = NT#) 3.24 x10 3/uL 2.0-7.6 N IMMATURE GRANULOCYTE # (test 0.04 x10 3/uL 0.00-0.03 H code = IG#) LYMPHOCYTE # (test code = LY#) 1.18 x10 3/uL 1.0-3.8 N MONOCYTE # (test code = MO#) 0.41 x10 3/uL 0.1-0.8 N EOSINOPHIL # (test code = EO#) 0.08 x10 3/uL 0.0-0.2 N BASOPHIL # (test code = BA#) 0.02 x10 3/uL 0.0-0.2 N NUCLEATED RBC # (test code = 0.00 x10 3/uL 0.0-0.1 N NRBC#) MANUAL DIFF REQUIRED (test code NO = MDIFF) Coronavirus 2019 nCoV [id number] 19:52:00 Test Item Value Reference Range Interpretation Comments Coronavirus 2019 POSITIVE Negative A nCoV Bedside (test --------- -----The [employer] ID code = NOW utilizes is othermal [id number]) [place] Enzyme Amplification Reaction (NEAR) technology in the qualitat ivedetection of infectious d iseases. With NEAR technology,ampl ified target detection is ac hieved with the use offluor escently labeled molecul ar beacons, comparable to P CRtechniques -----Negative r esults should be treat ed as presumptive and , ifinconsistent with clinical signs and symptoms or necessaryfor patient management, suze uld be tested with an alternativemole cular assay. Negative result s do not preclude IYOJ-DaE-2mltnx tion and should not be u sed as the sole basis forp atient management deci sions. Negative result s should beconsidered in the context of a patient's recent exposures,histo ry, presence of clinical sig ns and symptoms consis tentwith COVID-19. URINALYSIS [id number] 22:34:00 Test Item Value Reference Range Interpretation Comments UA COLOR (test code = COLU) YELLOW YEL/STRAW UA APPEARANCE (test code = APPU) CLEAR CLEAR UA GLUCOSE DIPSTICK (test code = NEGATIVE NEGATIVE DGLUU) UA BILIRUBIN DIPSTICK (test code NEGATIVE NEGATIVE = BILU) UA KETONE DIPSTICK (test code = NEGATIVE NEGATIVE KETU) UA SPECIFIC GRAVITY (test code = 1.008 1.005-1.030 N SGU) UA BLOOD DIPSTICK (test code = NEGATIVE NEGATIVE MIKE) UA PH DIPSTICK (test code = MYRNA) 7.0 5.0-7.0 N UA PROTEIN DIPSTICK (test code = NEGATIVE NEGATIVE PROU) UA UROBILINIOGEN DIPSTICK (test 0.2 mg/dL 0.2-1.0 code = URO) UA NITRITE DIPSTICK (test code = NEGATIVE NEGATIVE KEHINDE) UA LEUKOCYTE ESTERASE DIPSTICK NEGATIVE NEGATIVE (test code = LEUU) UA RBC (test code = RBCU) 0-3 RBC/HPF 0-3 UA WBC NO REFLEX (test code = 0-3 WBC/HPF 0-3 WBCUCL) UA BACTERIA (test code = BACU) 1+ /HPF NONE SEEN A UA SQUAMOUS CELLS (test code = 0-5 /HPF NONE SEEN SQU) UA MUCUS (test code = MUCU) TRACE /LPF NONE SEEN - US [id number] 00:00:00 [facility] 2000 Sex: F Name: ANDER ARAIZA [facility] : 2000 Age/S: 21 / F [address] [place] [address] Unit #: [id number] Loc: [place] [address] Phys: James Parker MD Acct: [id number] Dis Date: Status: REG ER PHONE #: [phone] Exam Date: 04/02/20222231 FAX #: [phone] Reason: [facility] EXAMS: CPT CODE: [id number] [place] L[place] 72702 PROCEDURE INFORMATION: Exam: US , Limited Exam date and time: 04/02/2022 10:17 PM Age: 21 years old Clinical indication: status abnormalities: ; movements, decreased; Single gestation; Third trimester (=28 weeks 0 days); Lmp or gestational age (in weeks): 39; Antepartum complications; Decreased movements; Fetus 1; ; Additional info: Df m, covid + TECHNIQUE: Imaging protocol: Real-time ultrasound of the maternal uterus with image documentation. Exam focused on the clinical indication. COMPARISON: No relevant prior studies available. FINDINGS: Gestation: Single live intrauterine is identified currently in cephalic position with heart tones of 170 bpm. Fundal grade 1 placenta is seen. Amniotic fluid index measures 10.6 cm. Systolic/diastolic ratio measures 2. Cervix measures 3.4 cm in length appearing partially obscured. Both ovaries are obscured by overlying gas. PROCEDURE INFORMATION: Exam: US Biophysical Profile Without Non-Stress Test Exam date and time: 04/02/2022 10:17 PM Age: 21 years old Clinical indication: status abnormalities: ; movements, decreased; Single gestation; Third trimester (=28 weeks 0 days); Lmp or gestational age (in weeks): 39; Antepartum complications; Decreased movements; Fetus 1; ; Additional info: Dfm, covid + TECHNIQUE: Imaging protocol: US biophysical profile without non- stress testing. COMPARISON: No relevant prior studies available. FINDINGS: BIOPHYSICAL PROFILE: breathing movement (BPP): 2 out of 2. body movement (BPP): 2 out of 2. tone (BPP): 2 out of 2. Amniotic fluid (BPP): 2 out of 2. IMPRESSION: PAGE 1 Signed Report (CONTINUED) Name: ANDER ARAIZA [facility] : 2000 Age/S: 21 / F [address] [place] [address] Unit #: [id number] Loc: [place] [address] Phys: James Parker MD Acct: [id number] Dis Date: Status: REG ER PHONE #: [phone] Exam Date: 04/02/20222231 FAX #: [phone] Reason: SEE BPP EXAMS: CPT CODE: [id number] US LTD 08272(Continued) US , Limited Single live intrauterine . US Biophysical Profile W ithout Non-Stress Test Biophysical profile score is 8 out of 8. at 2244 Reported and signed by: Timmy Bush M.D. CC: Technologist: Nathalia Alcantara RDMS(AB)(OB) Trnscb Date/Time: 04/02/2022 (2243) [email or web address] Orig Print D/T: S: 04/02/2022 (2243) Probe: PAGE 2 Signed Report- US BIOPHYS [id number] 00:00:00[facility] 2000 Sex: F Name: ANDER ARAIZA [facility] : 2000 Age/S: 21 / F [address] [place] [address] Bl Unit #: [id number] Loc: [place] [address] Phys: James Parker MD Acct: [id number] Dis Date: Status: REG ER PHONE #: [phone] Exam Date: 04/02/20222231 FAX #: [phone] Reason: DFM, COVID + EXAMS: CPT CODE: [id number] US BIOPHYS PROF [id number] PROCEDURE INFORMATION: Exam: US , Limited Exam date and time: 04/02/2022 10:17 PM Age: 21 years old Clinical indication: status abnormalities: ; movements, decreased; Single gestation; Third trimester (=28 weeks 0 days); Lmp or gestational age (in weeks): 39; Antepartum complications; Decreased movements; Fetus 1; ; Additional info: Dfnikki, covid + TECHNIQUE: Imaging protocol: Real-time ultrasound of the maternal uterus with image documentation. Exam focused on the clinical indication. COMPARISON: No relevant prior studies available. FINDINGS: Gestation: Single live intrauterine is identified currently in cephalic position with heart tones of 170 bpm. Fundal grade 1 placenta is seen. Amniotic fluid index measures 10.6 cm. Systolic/diastolic ratio measures 2. Cervix measures 3.4 cm in length appearing partially obscured. Both ovaries are obscured by overlying gas. PROCEDURE INFORMATION: Exam: US Biophysical Profile Without Non-Stress Test Exam date and time: 04/02/2022 10:17 PM Age: 21 years old Clinical indication: status abnormalities: ; movements, decreased; Single gestation; Third trimester (=28 weeks 0 days); Lmp or gestational age (in weeks): 39; Antepartum complications; Decreased movements; Fetus 1; ; Additional info: Dfm, covid +TECHNIQUE: Imaging protocol: US biophysical profile without non-stress testing. COMPARISON: No relevant prior studies available. FINDINGS: BIOPHYSICAL PROFILE: breathing movement (BPP): 2 out of 2. body movement (BPP): 2 out of 2. tone (BPP): 2 out of 2. Amniotic fluid (BPP): 2 out of 2. IMPRESSION: PAGE 1 Signed Report (CONTINUED) Name: ANDER ARAIZA [facility] : 2000 Age/S: 21 / F [address] [place] [address] Unit #: [id number] Loc: [place] [address] Phys: James Parker MD Acct: [id number] Dis Date: Status: REG ER PHONE #: [phone] Exam Date: 04/02/20222231 FAX #: [phone] Reason: DFM, COVID + EXAMS: CPT CODE: [id number] US FETALBIOPHYS PROF [id number] (Continued) US , Limited Single live intrauterine . US Biophysical Profile Without Non-Stress Test Biophysical profile score is 8 out of 8. at 2244 Reported and signed by: Timmy Bush M.D. CC: Technologist: Nathalia Alcantara RDMS(AB)(OB) Trnscb Date/Time: 04/02/2022 (2243) [email or web address] Orig Print D/T: S: 04/02/2022 (224) Probe: PAGE 2 Signed ReportCULTURE, [id number] 09:16:49SPECIMEN NUMBER: [id number] CULTURE, URINE SPECIMEN NUMBER: [id number] SPECIMEN COMMENT: URINE SOURCE:URINE REPORT STATUS: FINAL FINAL REPORT: 03/12/2022 >100,000 CFU/ML UROGENITAL SCOUT PRESENT NO COMMON PATHOGENS UNLESS OTHERWISE INDICATED, ALL TESTING PERFORMED [facility] [employer] [address] [place] [address] MOLDER TRIMMER: XAVIER LOTT M.D. CLIA NUMBER [id number] [facility] [place]. [id number], [id number] 00:00:00 Test Item Value Reference Range Interpretation Comments CULTURE, URINE (test SPECIMEN NUMBER: code = 10884) [id number] CULTURE, [id number] 00:00:00 Test Item Value Reference Range Interpretation Comments CULTURE, URINE (test SPECIMEN NUMBER: code = 99941) [id number] CULTURE, STREP B - [id number] 15:19:52SPECIMEN NUMBER: [id number] CULTURE, STREP B - SPECIMEN NUMBER: [id number] SPECIMEN COMMENT:GBS SOURCE: VAGINA REPORT STATUS: FINAL ISOLATE NUMBER 1: IDENTIFICATION: 03/04/2022 BETA STREPTOCOCCUS GROUP B ISOLATED CULTURE, URINE 2022-03-04 11:58:57SPECIMEN NUMBER: [id number] CULTURE, URINE SPECIMEN NUMBER: [id number] SPECIMEN COMMENT: URINE SOURCE:URINE REPORT STATUS: FINAL FINAL REPORT: 03/04/2022 >100,000 CFU/ML UROGENITAL SCOUT PRESENT NO COMMON PATHOGENSCULTURE, [id number] 00:00:00 Test Item Value Reference Range Interpretation Comments CULTURE, URINE (test SPECIMEN NUMBER: code = 14205) [id number] CULTURE, [id number] 00:00:00 Test Item Value Reference Range Interpretation Comments CULTURE, URINE (test SPECIMEN NUMBER: code = 14051) [id number] CULTURE, STREP B - [id number] 00:00:00 Test Item Value Reference Range Interpretation Comments CULTURE, STREP B - SPECIMEN NUMBER: (test code = [id number] 04770) CULTURE, STREP B - [id number] 00:00:00 Test Item Value Reference Range Interpretation Comments CULTURE, STREP B - SPECIMEN NUMBER: (test code = [id number] 92139) VAGINAL PATHOGENS DNA [id number] 13:34:40 Test Item Value Reference Range Interpretation Comments JACKSON SPECIES (test code = ) NEGATIVE NEGATIVE G. VAGINALIS (test code = ) NEGATIVE NEGATIVE T. VAGINALIS (test code = ) NEGATIVE NEGATIVE CBC W/AUTO DIFF WITH [id number] 03:14:44 Test Item Value Reference Range Interpretation Comments WBC (test code = 8.7 K/UL 3.5-11.0 1001) RBC (test code = 3.59 M/UL 3.80-5.40 L 1002) HEMOGLOBIN (test 11.6 G/DL 11.5-15.5 code = 1003) HEMATOCRIT (test 32.9 % 34.0-45.0 L code = 1004) MCV (test code = 91.6 fL 80.0-99.0 1005) MCH (test code = 32.3 PG 25.0-33.0 1006) MCHC (test code = 35.3 G/DL 31.0-36.0 1007) RDW (test code = 11.9 % 11.5-15.0 1038) NEUTROPHILS (test 73.4 % code = 1008) LYMPHOCYTES (test 16.5 % code = 1010) MONOCYTES (test code 7.2 % = 1011) EOSINOPHILS (test 0.9 % code = 1012) BASOPHILS (test code 0.3 % = 1013) IMMATURE 1.7 % GRANULOCYTES (test code = 1036) NUCLEATED RBCS (test 0.0 /100 See_Comment [Autom ated message] code = 1065) WBC'S The system [employer] generated this result transmitted ref erence range: 0.0. The reference range was not used to int erpret this result as normal/abnormal . PLATELET COUNT (test 233 K/UL 130-400 code = 1015) ABSOLUTE NEUTROPHILS 6.37 K/UL 1.50-7.50 (test code = 1066) ABSOLUTE LYMPHOCYTES 1.43 K/UL 1.00-4.00 (test code = 1067) ABSOLUTE MONOCYTES 0.63 K/UL 0.20-1.00 (test code = 1068) ABSOLUTE EOSINOPHILS 0.08 K/UL 0.00-0.50 (test code = 1040) ABSOLUTE BASOPHILS 0.03 K/UL 0.00-0.20 (test code = 1069) ABS IMMATURE 0.15 K/UL 0.00-0.10 H GRANULOCYTES (test code = 1020) ABS NUCLEATED RBCS 0.00 K/UL 0.00-0.11 UNLESS O THERWISE (test code = 40803) INDICATE D, ALL TESTING PERFORM ED [facility]CLINICAL PATH [facility], [facility]. [address] [place] [address] [facility] DIRECTOR: XAVIER LOTT M.D. IA NUMBER [id number] CAP ACCREDITATION N O. [id number] VAGINAL PATHOGENS DNA [id number] 00:00:00 Test Item Value Reference Range Interpretation Comments JACKSON SPECIES (test code = ) NEGATIVE G. VAGINALIS (test code = 57028) NEGATIVE T. VAGINALIS (test code = 38181) NEGATIVE VAGINAL PATHOGENS DNA [id number] 00:00:00 Test Item Value Reference Range Interpretation Comments JACKSON SPECIES (test code = ) NEGATIVE G. VAGINALIS (test code = 49372) NEGATIVE T. VAGINALIS (test code = 42280) NEGATIVE CBC W/AUTO [id number] 00:00:00 Test Item Value Reference Range Interpretation Comments WBC (test code = 1001) 8.7 K/UL RBC (test code = 1002) 3.59 M/UL HEMOGLOBIN (test code = 1003) 11.6 G/DL HEMATOCRIT (test code = 1004) 32.9 % MCV (test code = 1005) 91.6 fL MCH (test code = 1006) 32.3 PG MCHC (test code = 1007) 35.3 G/DL RDW (test code = 1038) 11.9 % NEUTROPHILS (test code = 1008) 73.4 % LYMPHOCYTES (test code = 1010) 16.5 % MONOCYTES (test code = 1011) 7.2 % EOSINOPHILS (test code = 1012) 0.9 % BASOPHILS (test code = 1013) 0.3 % IMMATURE GRANULOCYTES (test 1.7 % code = 1036) NUCLEATED RBCS (test code = 0.0 /100WBC'S 1065) PLATELET COUNT (test code = 233 K/UL 1015) ABSOLUTE NEUTROPHILS (test code 6.37 K/UL = 1066) ABSOLUTE LYMPHOCYTES (test code 1.43 K/UL = 1067) ABSOLUTE MONOCYTES (test code = 0.63 K/UL 1068) ABSOLUTE EOSINOPHILS (test code 0.08 K/UL = 1040) ABSOLUTE BASOPHILS (test code = 0.03 K/UL 1069) ABS IMMATURE GRANULOCYTES (test 0.15 K/UL code = 1020) ABS NUCLEATED RBCS (test code = 0.00 K/UL 69369) CBC W/AUTO [id number] 00:00:00 Test Item Value Reference Range Interpretation Comments WBC (test code = 1001) 8.7 K/UL RBC (test code = 1002) 3.59 M/UL HEMOGLOBIN (test code = 1003) 11.6 G/DL HEMATOCRIT (test code = 1004) 32.9 % MCV (test code = 1005) 91.6 fL MCH (test code = 1006) 32.3 PG MCHC (test code = 1007) 35.3 G/DL RDW (test code = 1038) 11.9 % NEUTROPHILS (test code = 1008) 73.4 % LYMPHOCYTES (test code = 1010) 16.5 % MONOCYTES (test code = 1011) 7.2 % EOSINOPHILS (test code = 1012) 0.9 % BASOPHILS (test code = 1013) 0.3 % IMMATURE GRANULOCYTES (test 1.7 % code = 1036) NUCLEATED RBCS (test code = 0.0 /100WBC'S 1065) PLATELET COUNT (test code = 233 K/UL 1015) ABSOLUTE NEUTROPHILS (test code 6.37 K/UL = 1066) ABSOLUTE LYMPHOCYTES (test code 1.43 K/UL = 1067) ABSOLUTE MONOCYTES (test code = 0.63 K/UL 1068) ABSOLUTE EOSINOPHILS (test code 0.08 K/UL = 1040) ABSOLUTE BASOPHILS (test code = 0.03 K/UL 1069) ABS IMMATURE GRANULOCYTES (test 0.15 K/UL code = 1020) ABS NUCLEATED RBCS (test code = 0.00 K/UL 65641) CBC W/AUTO [id number] 00:00:00 Test Item Value Reference Range Interpretation Comments WBC (test code = 1001) 8.7 K/UL RBC (test code = 1002) 3.59 M/UL HEMOGLOBIN (test code = 1003) 11.6 G/DL HEMATOCRIT (test code = 1004) 32.9 % MCV (test code = 1005) 91.6 fL MCH (test code = 1006) 32.3 PG MCHC (test code = 1007) 35.3 G/DL RDW (test code = 1038) 11.9 % NEUTROPHILS (test code = 1008) 73.4 % LYMPHOCYTES (test code = 1010) 16.5 % MONOCYTES (test code = 1011) 7.2 % EOSINOPHILS (test code = 1012) 0.9 % BASOPHILS (test code = 1013) 0.3 % IMMATURE GRANULOCYTES (test 1.7 % code = 1036) NUCLEATED RBCS (test code = 0.0 /100WBC'S 1065) PLATELET COUNT (test code = 233 K/UL 1015) ABSOLUTE NEUTROPHILS (test code 6.37 K/UL = 1066) ABSOLUTE LYMPHOCYTES (test code 1.43 K/UL = 1067) ABSOLUTE MONOCYTES (test code = 0.63 K/UL 1068) ABSOLUTE EOSINOPHILS (test code 0.08 K/UL = 1040) ABSOLUTE BASOPHILS (test code = 0.03 K/UL 1069) ABS IMMATURE GRANULOCYTES (test 0.15 K/UL code = 1020) ABS NUCLEATED RBCS (test code = 0.00 K/UL 34525) CT/NG, NAAT, [id number] 10:58:26 Test Item Value Reference Range Interpretation Comments GONORRHEA, NAAT NEGATIVE NEGATIVE IMPORTA NT NOTICE: SEE (test code = [place] [address]) [email or web address] Note: Assay methodology is nucleic acid amplification b y shell plater m ediated amplification ( TMA) utilizing the A ptima Combo 2 Assay. CHLAMYDIA, NAAT NEGATIVE NEGATIVE IMPORTA NT NOTICE: SEE (test code = [place] [address]) [email or web address] Note: Assay methodology is nucleic acid amplification b y shell plater m ediated amplification ( TMA) utilizing the A ptima Combo 2 Assay. UNLES S OTHERWISE INDICATED, ALL TESTING PERFORMED [facility] [address] [place] [address] [facility] DIRECTOR: XAVIER LOTT M.D. CLIA NUMBER [id number] CAP ACCREDITATION N O. [id number] CULTURE, [id number] 10:18:22SPECIMEN NUMBER: [id number] CULTURE, URINE SPECIMEN NUMBER: [id number] SPECIMEN COMMENT: URINE SOURCE:URINE REPORT STATUS: FINAL FINAL REPORT: 02/11/2022 50-100,000 CFU/ML UROGENITAL SCOUT PRESENT NO COM MON PATHOGENSCULTURE, [id number] 00:00:00 Test Item Value Reference Range Interpretation Comments CULTURE, URINE (test SPECIMEN NUMBER: code = 04146) [id number] CULTURE, [id number] 00:00:00 Test Item Value Reference Range Interpretation Comments CULTURE, URINE (test SPECIMEN NUMBER: code = 97778) [id number] GC AND CHLAMYDIA, AMPLIFIED, [id number] 00:00:00 Test Item Value Reference Range Interpretation Comments GONORRHEA, NAAT (test code = 86231) NEGATIVE CHLAMYDIA, NAAT (test code = 78004) NEGATIVE GC AND CHLAMYDIA, AMPLIFIED, [id number] 00:00:00 Test Item Value Reference Range Interpretation Comments GONORRHEA, NAAT (test code = 47064) NEGATIVE CHLAMYDIA, NAAT (test code = 85899) NEGATIVE [id number] 04:36:16 Test Item Value Reference Range Interpretation Comments RPR RESULT (test code = NON-REACTIVE NON-REACTIVE 3501) RPR TITER (test code = 3500) NOT INDIC. TITER NOT INDIC. HIV 1/2 4TH GEN, RFLX [id number] 03:35:30 Test Item Value Reference Range Interpretation Comments HIV 1/2 4TH GEN, RFLX CONF (test NON-REACTIVE NON-REACTIVE code = 3514) HIV AB/AG COMBO RFLX [id number] 00:00:00 Test Item Value Reference Range Interpretation Comments HIV 1/2 4TH GEN, RFLX CONF (test NON-REACTIVE code = 3514) HIV AB/AG COMBO RFLX [id number] 00:00:00 Test Item Value Reference Range Interpretation Comments HIV 1/2 4TH GEN, RFLX CONF (test NON-REACTIVE code = 3514) [id number] 00:00:00 Test Item Value Reference Range Interpretation Comments RPR RESULT (test code = NON-REACTIVE 3501) RPR TITER (test code = 3500) NOT INDIC. TITER [id number] 00:00:00 Test Item Value Reference Range Interpretation Comments RPR RESULT (test code = NON-REACTIVE 3501) RPR TITER (test code = 3500) NOT INDIC. TITER [id number] 00:00:00 Test Item Value Reference Range Interpretation Comments RPR RESULT (test code = NON-REACTIVE 3501) RPR TITER (test code = 3500) NOT INDIC. TITER CBC W/AUTO DIFF WITH [id number] 04:20:36 Test Item Value Reference Range Interpretation Comments WBC (test code = 7.0 K/UL 3.5-11.0 1001) RBC (test code = 3.72 M/UL 3.80-5.40 L 1002) HEMOGLOBIN (test code 12.2 G/DL 11.5-15.5 = 1003) HEMATOCRIT (test code 34.8 % 34.0-45.0 = 1004) MCV (test code = 93.5 fL 80.0-99.0 1005) MCH (test code = 32.8 PG 25.0-33.0 1006) MCHC (test code = 35.1 G/DL 31.0-36.0 1007) RDW (test code = 11.8 % 11.5-15.0 1038) NEUTROPHILS (test 75.4 % code = 1008) LYMPHOCYTES (test 18.5 % code = 1010) MONOCYTES (test code 4.5 % = 1011) EOSINOPHILS (test 0.6 % code = 1012) BASOPHILS (test code 0.3 % = 1013) IMMATURE GRANULOCYTES 0.7 % (test code = 1036) NUCLEATED RBCS (test 0.0 /100 WBC'S See_Comment [Aut omated code = 1065) message] The sy stem which generated this result transmitted reference range : 0.0. The refere nce range was not u sed to interpret th is result as normal/abnormal . PLATELET COUNT (test 224 K/UL 130-400 code = 1015) ABSOLUTE NEUTROPHILS 5.31 K/UL 1.50-7.50 (test code = 1066) ABSOLUTE LYMPHOCYTES 1.30 K/UL 1.00-4.00 (test code = 1067) ABSOLUTE MONOCYTES 0.32 K/UL 0.20-1.00 (test code = 1068) ABSOLUTE EOSINOPHILS 0.04 K/UL 0.00-0.50 (test code = 1040) ABSOLUTE BASOPHILS 0.02 K/UL 0.00-0.20 (test code = 1069) ABS IMMATURE 0.05 K/UL 0.00-0.10 GRANULOCYTES (test code = 1020) ABS NUCLEATED RBCS 0.00 K/UL 0.00-0.11 (test code = 62091) GLUCOSE, 1 HR, GESTATIONAL SCREEN, 50 GM [id number] 03:15:28 Test Item Value Reference Range Interpretation Comments GLUCOSE 1 HR POST 118 MG/DL <140 UNLESS OT HERWISE 50 GM (test code = INDICATED , ALL TESTING 2005) PERFORMED [facility], [facility]. [address] [place] [id number] [place] [address] DIRECTOR: XAVIER LOTT M.D. CLIA NUMBER [id number] CAP ACCREDITATION N O. [id number] CBC W/AUTO [id number] 00:00:00 Test Item Value Reference Range Interpretation Comments WBC (test code = 1001) 7.0 K/UL RBC (test code = 1002) 3.72 M/UL HEMOGLOBIN (test code = 1003) 12.2 G/DL HEMATOCRIT (test code = 1004) 34.8 % MCV (test code = 1005) 93.5 fL MCH (test code = 1006) 32.8 PG MCHC (test code = 1007) 35.1 G/DL RDW (test code = 1038) 11.8 % NEUTROPHILS (test code = 1008) 75.4 % LYMPHOCYTES (test code = 1010) 18.5 % MONOCYTES (test code = 1011) 4.5 % EOSINOPHILS (test code = 1012) 0.6 % BASOPHILS (test code = 1013) 0.3 % IMMATURE GRANULOCYTES (test 0.7 % code = 1036) NUCLEATED RBCS (test code = 0.0 /100WBC'S 1065) PLATELET COUNT (test code = 224 K/UL 1015) ABSOLUTE NEUTROPHILS (test code 5.31 K/UL = 1066) ABSOLUTE LYMPHOCYTES (test code 1.30 K/UL = 1067) ABSOLUTE MONOCYTES (test code = 0.32 K/UL 1068) ABSOLUTE EOSINOPHILS (test code 0.04 K/UL = 1040) ABSOLUTE BASOPHILS (test code = 0.02 K/UL 1069) ABS IMMATURE GRANULOCYTES (test 0.05 K/UL code = 1020) ABS NUCLEATED RBCS (test code = 0.00 K/UL 62470) CBC W/AUTO [id number] 00:00:00 Test Item Value Reference Range Interpretation Comments WBC (test code = 1001) 7.0 K/UL RBC (test code = 1002) 3.72 M/UL HEMOGLOBIN (test code = 1003) 12.2 G/DL HEMATOCRIT (test code = 1004) 34.8 % MCV (test code = 1005) 93.5 fL MCH (test code = 1006) 32.8 PG MCHC (test code = 1007) 35.1 G/DL RDW (test code = 1038) 11.8 % NEUTROPHILS (test code = 1008) 75.4 % LYMPHOCYTES (test code = 1010) 18.5 % MONOCYTES (test code = 1011) 4.5 % EOSINOPHILS (test code = 1012) 0.6 % BASOPHILS (test code = 1013) 0.3 % IMMATURE GRANULOCYTES (test 0.7 % code = 1036) NUCLEATED RBCS (test code = 0.0 /100WBC'S 1065) PLATELET COUNT (test code = 224 K/UL 1015) ABSOLUTE NEUTROPHILS (test code 5.31 K/UL = 1066) ABSOLUTE LYMPHOCYTES (test code 1.30 K/UL = 1067) ABSOLUTE MONOCYTES (test code = 0.32 K/UL 1068) ABSOLUTE EOSINOPHILS (test code 0.04 K/UL = 1040) ABSOLUTE BASOPHILS (test code = 0.02 K/UL 1069) ABS IMMATURE GRANULOCYTES (test 0.05 K/UL code = 1020) ABS NUCLEATED RBCS (test code = 0.00 K/UL 47723) CBC W/AUTO [id number] 00:00:00 Test Item Value Reference Range Interpretation Comments WBC (test code = 1001) 7.0 K/UL RBC (test code = 1002) 3.72 M/UL HEMOGLOBIN (test code = 1003) 12.2 G/DL HEMATOCRIT (test code = 1004) 34.8 % MCV (test code = 1005) 93.5 fL MCH (test code = 1006) 32.8 PG MCHC (test code = 1007) 35.1 G/DL RDW (test code = 1038) 11.8 % NEUTROPHILS (test code = 1008) 75.4 % LYMPHOCYTES (test code = 1010) 18.5 % MONOCYTES (test code = 1011) 4.5 % EOSINOPHILS (test code = 1012) 0.6 % BASOPHILS (test code = 1013) 0.3 % IMMATURE GRANULOCYTES (test 0.7 % code = 1036) NUCLEATED RBCS (test code = 0.0 /100WBC'S 1065) PLATELET COUNT (test code = 224 K/UL 1015) ABSOLUTE NEUTROPHILS (test code 5.31 K/UL = 1066) ABSOLUTE LYMPHOCYTES (test code 1.30 K/UL = 1067) ABSOLUTE MONOCYTES (test code = 0.32 K/UL 1068) ABSOLUTE EOSINOPHILS (test code 0.04 K/UL = 1040) ABSOLUTE BASOPHILS (test code = 0.02 K/UL 1069) ABS IMMATURE GRANULOCYTES (test 0.05 K/UL code = 1020) ABS NUCLEATED RBCS (test code = 0.00 K/UL 27941) GLUCOSE, 1 HR, GESTATIONAL SCREEN, 50 GM [id number] 00:00:00 Test Item Value Reference Range Interpretation Comments GLUCOSE 1 HR POST 50 GM (test code 118 MG/DL = 2005) GLUCOSE, 1 HR, GESTATIONAL SCREEN, 50 GM [id number] 00:00:00 Test Item Value Reference Range Interpretation Comments GLUCOSE 1 HR POST 50 GM (test code 118 MG/DL = 2005) GLUCOSE, 1 HR, GESTATIONAL SCREEN, 50 GM [id number] 00:00:00 Test Item Value Reference Range Interpretation Comments GLUCOSE 1 HR POST 50 GM (test code 118 MG/DL = 2005) CULTURE, [id number] 08:19:53NORMAL CULTURE, URINE SPECIMEN NUMBER: [id number] SPECIMEN COMMENT: URINE SOURCE: URINE REPORT STATUS: FINAL FINAL REPORT: 11/23/2021 >100,000 CFU/ML UROGENITAL SCOUT PRESENT NO COMMON PATHOGENS UNLESS OTHERWISE INDICATED, ALL TESTING PERFORMED [facility] [address] [place] [address] MOLDER TRIMMER: Lupe LADD NUMBER [id number] [facility] [place]. [id number], [id number] 00:00:00 Test Item Value Reference Range Interpretation Comments CULTURE, URINE (test code = 40184) NORMAL CULTURE, [id number] 00:00:00 Test Item Value Reference Range Interpretation Comments CULTURE, URINE (test code = 22699) NORMAL CULTURE, [id number] 11:48:43SPECIMEN NUMBER: [id number] CULTURE, URINE SPECIMEN NUMBER: [id number] SPECIMEN COMMENT: URINE SOURCE: URINE REPORT STATUS: FINAL FINAL REPORT: 10/25/2021 50-100,000 CFU/ML UROGENITAL SCOUT PRESENT NO CO MMON PATHOGENS PRELIMINARY REPORT: 10/24/2021 NO GROWTH AFTER 12 HOURSCULTURE, [id number] 00:00:00 Test Item Value Reference Range Interpretation Comments CULTURE, URINE (test SPECIMEN NUMBER: code = 35698) [id number] CULTURE, [id number] 00:00:00 Test Item Value Reference Range Interpretation Comments CULTURE, URINE (test SPECIMEN NUMBER: code = 27012) [id number] MATERNAL AFP FOR NTD [id number] 14:15:08 Test Item Value Reference Range Interpretation Comments INTERPRETATION (test SCREEN NEGATIVE code = 277444) Neural tube defect 1:7935 risk (test code = 69465) Neural tube defect (NOTE) --- NORM AL - NOT interpretation (test AT INCR EASED RISK code = 10576) --- The AFP results indicat e a risk for neur al tube defect les s than or equal t o that of the general population. (A normal result i s defined as an Adjusted AFP M.O.M. of less than 2.50 for non-diabetics a nd less than 2.0 f or diabetics). The gestation age w as based upon Ultrasound Examination. No te that this is a screening test only. Normal results are not a guarantee of a normal . DATE OF (test 2000 code = 2660) MATERNAL WEIGHT (test 111 LBS code = 2657) INITIAL/REPEAT (test INITIAL code = 832328) FAMILY HISTORY OF NTD NO (test code = 183996) INSULIN DEP. DIABETIC NO (test code = 2659) RACE (test code = 2658) SMOKER? (test code = YES 575402) NUMBER OF GESTATIONS 1 (test code = 31741) GESTATIONAL AGE (test 16.4 WEEKS code = 2656) DETERMINED BY: (test US code = 2654) DATE OF SONOGRAM 09/06/2021 (test code = 61230) GESTATIONAL AGE AT 9.7 WEEKS SONO (test code = 2653) ADJUST AFP M.O.M. 1.136 M.O.M. (test code = 2661) AFP (test 50.6 NG/ML code = 05891) VAGINAL PATHOGENS DNA [id number] 13:11:15 Test Item Value Reference Range Interpretation Comments JACKSON SPECIES (test POSITIVE NEGATIVE A code = ) G. VAGINALIS (test NEGATIVE NEGATIVE code = ) T. VAGINALIS (test NEGATIVE NEGATIVE UNLESS O THERWISE code = ) INDICATED, ALL TESTING PERFORMED ATCLI NICAL PATHOLOGY [facility] [address] [place] [address] LABORATORY DIRE CTOR: XAVIER BAILON M.D. CLIA NUMBER [id number] [place] [id number] MATERNAL AFP FOR NTD [id number] 00:00:00 Test Item Value Reference Range Interpretation Comments INTERPRETATION (test code = SCREEN NEGATIVE 080612) Neural tube defect risk (test 1:7935 code = 39311) Neural tube defect (NOTE) interpretation (test code = 28490) DATE OF (test code = 2000 2660) MATERNAL WEIGHT (test code = 111 LBS 2657) INITIAL/REPEAT (test code = INITIAL 102082) FAMILY HISTORY OF NTD (test NO code = 107608) INSULIN DEP. DIABETIC (test NO code = 2659) RACE (test code = 2658) SMOKER? (test code = 235114) YES NUMBER OF GESTATIONS (test 1 code = 78752) GESTATIONAL AGE (test code = 16.4 WEEKS 2656) DETERMINED BY: (test code = US 2654) DATE OF SONOGRAM (test code = 09/06/2021 41366) GESTATIONAL AGE AT SONO (test 9.7 WEEKS code = 2653) ADJUST AFP M.O.M. (test code 1.136 M.O.M. = 2661) AFP (test code = 50.6 NG/ML 71699) MATERNAL AFP FOR NTD [id number] 00:00:00 Test Item Value Reference Range Interpretation Comments INTERPRETATION (test code = SCREEN NEGATIVE 132417) Neural tube defect risk (test 1:7935 code = 87415) Neural tube defect (NOTE) interpretation (test code = 49997) DATE OF (test code = 2000 2660) MATERNAL WEIGHT (test code = 111 LBS 2657) INITIAL/REPEAT (test code = INITIAL 746843) FAMILY HISTORY OF NTD (test NO code = 458372) INSULIN DEP. DIABETIC (test NO code = 2659) RACE (test code = 2658) SMOKER? (test code = 265037) YES NUMBER OF GESTATIONS (test 1 code = 16909) GESTATIONAL AGE (test code = 16.4 WEEKS 2656) DETERMINED BY: (test code = US 2654) DATE OF SONOGRAM (test code = 09/06/2021 48960) GESTATIONAL AGE AT SONO (test 9.7 WEEKS code = 2653) ADJUST AFP M.O.M. (test code 1.136 M.O.M. = 2661) AFP (test code = 50.6 NG/ML 65970) MATERNAL AFP FOR NTD [id number] 00:00:00 Test Item Value Reference Range Interpretation Comments INTERPRETATION (test code = SCREEN NEGATIVE 644031) Neural tube defect risk (test 1:7935 code = 15753) Neural tube defect (NOTE) interpretation (test code = 73962) DATE OF (test code = 2000 2660) MATERNAL WEIGHT (test code = 111 LBS 2657) INITIAL/REPEAT (test code = INITIAL 580944) FAMILY HISTORY OF NTD (test NO code = 487384) INSULIN DEP. DIABETIC (test NO code = 2659) RACE (test code = 2658) SMOKER? (test code = 848915) YES NUMBER OF GESTATIONS (test 1 code = 65778) GESTATIONAL AGE (test code = 16.4 WEEKS 2656) DETERMINED BY: (test code = US 2654) DATE OF SONOGRAM (test code = 09/06/2021 64228) GESTATIONAL AGE AT SONO (test 9.7 WEEKS code = 2653) ADJUST AFP M.O.M. (test code 1.136 M.O.M. = 2661) AFP (test code = 50.6 NG/ML 69832) VAGINAL PATHOGENS DNA [id number] 00:00:00 Test Item Value Reference Range Interpretation Comments JACKSON SPECIES (test code = ) POSITIVE G. VAGINALIS (test code = ) NEGATIVE T. VAGINALIS (test code = ) NEGATIVE VAGINAL PATHOGENS DNA [id number] 00:00:00 Test Item Value Reference Range Interpretation Comments JACKSON SPECIES (test code = ) POSITIVE G. VAGINALIS (test code = ) NEGATIVE T. VAGINALIS (test code = 78988) NEGATIVE COMPREHENSIVE METABOLIC [id number] 00:00:00 Test Item Value Reference Range Interpretation Comments GLUCOSE (test code = 2217) 74 MG/DL BUN (test code = 2208) 4 MG/DL CREATININE (test code = 2214) 0.42 MG/DL eGFR AMER. (test code 172 ML/MIN/1.73 = 52169) eGFR NON- AMER. (test 149 ML/MIN/1.73 code = 52366) CALC BUN/CREAT (test code = 10 RATIO 2235) SODIUM (test code = 2231) 136 MEQ/L POTASSIUM (test code = 2228) 4.0 MEQ/L CHLORIDE (test code = 2215) 101 MEQ/L CARBON DIOXIDE (test code = 23 MEQ/L 2205) CALCIUM (test code = 2209) 10.1 MG/DL PROTEIN, TOTAL (test code = 7.4 G/DL 2228) ALBUMIN (test code = 2201) 4.7 G/DL CALC GLOBULIN (test code = 2.7 G/DL 2240) CALC A/G RATIO (test code = 1.7 RATIO 4) BILIRUBIN, TOTAL (test code = 0.8 MG/DL 2206) ALKALINE PHOSPHATASE (test 61 U/L code = 2204) AST (test code = 2218) 15 U/L ALT (test code = 2219) 12 U/L COMPREHENSIVE METABOLIC [id number] 00:00:00 Test Item Value Reference Range Interpretation Comments GLUCOSE (test code = 2217) 74 MG/DL BUN (test code = 2208) 4 MG/DL CREATININE (test code = 2214) 0.42 MG/DL eGFR AMER. (test code 172 ML/MIN/1.73 = 26781) eGFR NON- AMER. (test 149 ML/MIN/1.73 code = 99365) CALC BUN/CREAT (test code = 10 RATIO 2235) SODIUM (test code = 2231) 136 MEQ/L POTASSIUM (test code = 2228) 4.0 MEQ/L CHLORIDE (test code = 2215) 101 MEQ/L CARBON DIOXIDE (test code = 23 MEQ/L 2205) CALCIUM (test code = 2209) 10.1 MG/DL PROTEIN, TOTAL (test code = 7.4 G/DL 2228) ALBUMIN (test code = 2201) 4.7 G/DL CALC GLOBULIN (test code = 2.7 G/DL 2239) CALC A/G RATIO (test code = 1.7 RATIO 2233) BILIRUBIN, TOTAL (test code = 0.8 MG/DL 2206) ALKALINE PHOSPHATASE (test 61 U/L code = 220) AST (test code = 2218) 15 U/L ALT (test code = 2219) 12 U/L CULTURE, [id number] 00:00:00 Test Item Value Reference Range Interpretation Comments CULTURE, URINE (test SPECIMEN NUMBER: code = 38801) [id number] CULTURE, [id number] 00:00:00 Test Item Value Reference Range Interpretation Comments CULTURE, URINE (test SPECIMEN NUMBER: code = 72928) [id number] HEPATITIS A [id number] 00:00:00 Test Item Value Reference Range Interpretation Comments HEPATITIS A IgM (test code = NON-REACTIVE 37465) HEPATITIS A [id number] 00:00:00 Test Item Value Reference Range Interpretation Comments HEPATITIS A IgM (test code = NON-REACTIVE 17627) HEPATITIS A [id number] 00:00:00 Test Item Value Reference Range Interpretation Comments HEPATITIS A IgM (test code = NON-REACTIVE 91863) VAGINAL PATHOGENS DNA PANEL [ADDED]2021-08-30 00:00:00 Test Item Value Reference Range Interpretation Comments JACKSON SPECIES (test code = ) NEGATIVE G. VAGINALIS (test code = ) NEGATIVE T. VAGINALIS (test code = ) NEGATIVE VAGINAL PATHOGENS DNA PANEL [ADDED]2021-08-30 00:00:00 Test Item Value Reference Range Interpretation Comments JACKSON SPECIES (test code = ) NEGATIVE G. VAGINALIS (test code = ) NEGATIVE T. VAGINALIS (test code = 09858) NEGATIVE CULTURE, [id number] 00:00:00 Test Item Value Reference Range Interpretation Comments CULTURE, URINE (test SPECIMEN NUMBER: code = 92791) [id number] CULTURE, [id number] 00:00:00 Test Item Value Reference Range Interpretation Comments CULTURE, URINE (test SPECIMEN NUMBER: code = 17414) [id number] THC METABOLITE, QUANT, URINE [REFLEX]2021-08-04 00:00:00 Test Item Value Reference Range Interpretation Comments CARBOXY-THC INTERP (test code = Positive 21696) CARBOXY-THC QNT (test code = 06787) 425 ng/mL THC METABOLITE, QUANT, URINE [REFLEX]2021-08-04 00:00:00 Test Item Value Reference Range Interpretation Comments CARBOXY-THC INTERP (test code = Positive 79446) CARBOXY-THC QNT (test code = 54293) 425 ng/mL DRUG ABUSE PANEL 10 WITH [id number] 00:00:00 Test Item Value Reference Range Interpretation Comments AMPHETAMINES (test code = NEGATIVE 3201) BARBITURATES (test code = NEGATIVE 3202) BENZODIAZEPINES (test code NEGATIVE = 3203) CANNABINOIDS (test code = SEE REFLEX TESTING 3204) COCAINE METABOLITE (test NEGATIVE code = 3205) OPIATES (test code = 3209) NEGATIVE OXYCODONE (test code = NEGATIVE 94072) PHENCYCLIDINE (test code = NEGATIVE 3210) METHADONE (test code = NEGATIVE 3207) BUPRENORPHINE (test code = NEGATIVE 80107) GC AND CHLAMYDIA, AMPLIFIED, [id number] 00:00:00 Test Item Value Reference Range Interpretation Comments GONORRHEA, NAAT (test code = 92814) NEGATIVE CHLAMYDIA, NAAT (test code = 85080) NEGATIVE GC AND CHLAMYDIA, AMPLIFIED, [id number] 00:00:00 Test Item Value Reference Range Interpretation Comments GONORRHEA, NAAT (test code = 04421) NEGATIVE CHLAMYDIA, NAAT (test code = 07272) NEGATIVE COMPREHENSIVE METABOLIC PANEL [ADDED]2021-08-03 00:00:00 Test Item Value Reference Range Interpretation Comments GLUCOSE (test code = 2217) 94 MG/DL BUN (test code = 2208) 6 MG/DL CREATININE (test code = 2214) 0.69 MG/DL eGFR AMER. (test code 146 ML/MIN/1.73 = 79266) eGFR NON- AMER. (test 126 ML/MIN/1.73 code = 70632) CALC BUN/CREAT (test code = 9 RATIO 2235) SODIUM (test code = 2231) 140 MEQ/L POTASSIUM (test code = 2228) 3.9 MEQ/L CHLORIDE (test code = 2215) 103 MEQ/L CARBON DIOXIDE (test code = 20 MEQ/L 220) CALCIUM (test code = 2209) 10.1 MG/DL PROTEIN, TOTAL (test code = 7.7 G/DL 2228) ALBUMIN (test code = 2201) 5.0 G/DL CALC GLOBULIN (test code = 2.7 G/DL 2240) CALC A/G RATIO (test code = 1.9 RATIO 2234) BILIRUBIN, TOTAL (test code = 1.5 MG/DL 2206) ALKALINE PHOSPHATASE (test 69 U/L code = 2204) AST (test code = 2218) 13 U/L ALT (test code = 2219) 5 U/L COMPREHENSIVE METABOLIC PANEL [ADDED]2021-08-03 00:00:00 Test Item Value Reference Range Interpretation Comments GLUCOSE (test code = 2217) 94 MG/DL BUN (test code = 2208) 6 MG/DL CREATININE (test code = 2214) 0.69 MG/DL eGFR AMER. (test code 146 ML/MIN/1.73 = 08893) eGFR NON- AMER. (test 126 ML/MIN/1.73 code = 86166) CALC BUN/CREAT (test code = 9 RATIO 2235) SODIUM (test code = 2231) 140 MEQ/L POTASSIUM (test code = 2228) 3.9 MEQ/L CHLORIDE (test code = 2215) 103 MEQ/L CARBON DIOXIDE (test code = 20 MEQ/L 220) CALCIUM (test code = 2209) 10.1 MG/DL PROTEIN, TOTAL (test code = 7.7 G/DL 2228) ALBUMIN (test code = 2201) 5.0 G/DL CALC GLOBULIN (test code = 2.7 G/DL 2240) CALC A/G RATIO (test code = 1.9 RATIO 2234) BILIRUBIN, TOTAL (test code = 1.5 MG/DL 2206) ALKALINE PHOSPHATASE (test 69 U/L code = 2204) AST (test code = 2218) 13 U/L ALT (test code = 2219) 5 U/L OBSTETRIC PANEL + [id number] 00:00:00 Test Item Value Reference Range Interpretation Comments WBC (test code = 1001) 5.2 K/UL RBC (test code = 1002) 4.66 M/UL HEMOGLOBIN (test code = 14.3 G/DL 1003) HEMATOCRIT (test code = 41.4 % 1004) MCV (test code = 1005) 88.8 fL MCH (test code = 1006) 30.7 PG MCHC (test code = 1007) 34.5 G/DL RDW (test code = 1038) 12.4 % NEUTROPHILS (test code = 63.0 % 1008) LYMPHOCYTES (test code = 26.9 % 1010) MONOCYTES (test code = 1011) 8.1 % EOSINOPHILS (test code = 1.2 % 1012) BASOPHILS (test code = 1013) 0.6 % IMMATURE GRANULOCYTES (test 0.2 % code = 1036) NUCLEATED RBCS (test code = 0.0 /100WBC'S 1065) PLATELET COUNT (test code = 302 K/UL 1015) ABSOLUTE NEUTROPHILS (test 3.28 K/UL code = 1066) ABSOLUTE LYMPHOCYTES (test 1.40 K/UL code = 1067) ABSOLUTE MONOCYTES (test 0.42 K/UL code = 1068) ABSOLUTE EOSINOPHILS (test 0.06 K/UL code = 1040) ABSOLUTE BASOPHILS (test 0.03 K/UL code = 1069) ABS IMMATURE GRANULOCYTES 0.01 K/UL (test code = 1020) ABS NUCLEATED RBCS (test 0.00 K/UL code = 16838) BLOOD TYPE AND RH (test code O POSITIVE = 3901) ANTIBODY SCREEN (test code = NEGATIVE 3902) RUBELLA ANTIBODY SCREEN 186 IU/ML (test code = 4600) RUBELLA IgG INTERP (test REACTIVE code = 09061) HEPATITIS B SURF AG (test NON-REACTIVE code = 2739) RPR (test code = 78615) NON-REACTIVE RPR TITER (test code = 3500) NOT INDIC. TITER HIV 1/2 4TH GEN, RFLX CONF NON-REACTIVE (test code = 3514) OBSTETRIC PANEL + [id number] 00:00:00 Test Item Value Reference Range Interpretation Comments WBC (test code = 1001) 5.2 K/UL RBC (test code = 1002) 4.66 M/UL HEMOGLOBIN (test code = 14.3 G/DL 1003) HEMATOCRIT (test code = 41.4 % 1004) MCV (test code = 1005) 88.8 fL MCH (test code = 1006) 30.7 PG MCHC (test code = 1007) 34.5 G/DL RDW (test code = 1038) 12.4 % NEUTROPHILS (test code = 63.0 % 1008) LYMPHOCYTES (test code = 26.9 % 1010) MONOCYTES (test code = 1011) 8.1 % EOSINOPHILS (test code = 1.2 % 1012) BASOPHILS (test code = 1013) 0.6 % IMMATURE GRANULOCYTES (test 0.2 % code = 1036) NUCLEATED RBCS (test code = 0.0 /100WBC'S 1065) PLATELET COUNT (test code = 302 K/UL 1015) ABSOLUTE NEUTROPHILS (test 3.28 K/UL code = 1066) ABSOLUTE LYMPHOCYTES (test 1.40 K/UL code = 1067) ABSOLUTE MONOCYTES (test 0.42 K/UL code = 1068) ABSOLUTE EOSINOPHILS (test 0.06 K/UL code = 1040) ABSOLUTE BASOPHILS (test 0.03 K/UL code = 1069) ABS IMMATURE GRANULOCYTES 0.01 K/UL (test code = 1020) ABS NUCLEATED RBCS (test 0.00 K/UL code = 69867) BLOOD TYPE AND RH (test code O POSITIVE = 3901) ANTIBODY SCREEN (test code = NEGATIVE 3902) RUBELLA ANTIBODY SCREEN 186 IU/ML (test code = 4600) RUBELLA IgG INTERP (test REACTIVE code = 95260) HEPATITIS B SURF AG (test NON-REACTIVE code = 2739) RPR (test code = 35120) NON-REACTIVE RPR TITER (test code = 3500) NOT INDIC. TITER HIV 1/2 4TH GEN, RFLX CONF NON-REACTIVE (test code = 3514) OBSTETRIC PANEL + [id number] 00:00:00 Test Item Value Reference Range Interpretation Comments WBC (test code = 1001) 5.2 K/UL RBC (test code = 1002) 4.66 M/UL HEMOGLOBIN (test code = 14.3 G/DL 1003) HEMATOCRIT (test code = 41.4 % 1004) MCV (test code = 1005) 88.8 fL MCH (test code = 1006) 30.7 PG MCHC (test code = 1007) 34.5 G/DL RDW (test code = 1038) 12.4 % NEUTROPHILS (test code = 63.0 % 1008) LYMPHOCYTES (test code = 26.9 % 1010) MONOCYTES (test code = 1011) 8.1 % EOSINOPHILS (test code = 1.2 % 1012) BASOPHILS (test code = 1013) 0.6 % IMMATURE GRANULOCYTES (test 0.2 % code = 1036) NUCLEATED RBCS (test code = 0.0 /100WBC'S 1065) PLATELET COUNT (test code = 302 K/UL 1015) ABSOLUTE NEUTROPHILS (test 3.28 K/UL code = 1066) ABSOLUTE LYMPHOCYTES (test 1.40 K/UL code = 1067) ABSOLUTE MONOCYTES (test 0.42 K/UL code = 1068) ABSOLUTE EOSINOPHILS (test 0.06 K/UL code = 1040) ABSOLUTE BASOPHILS (test 0.03 K/UL code = 1069) ABS IMMATURE GRANULOCYTES 0.01 K/UL (test code = 1020) ABS NUCLEATED RBCS (test 0.00 K/UL code = 08761) BLOOD TYPE AND RH (test code O POSITIVE = 3901) ANTIBODY SCREEN (test code = NEGATIVE 3902) RUBELLA ANTIBODY SCREEN 186 IU/ML (test code = 4600) RUBELLA IgG INTERP (test REACTIVE code = 65632) HEPATITIS B SURF AG (test NON-REACTIVE code = 2739) RPR (test code = 34545) NON-REACTIVE RPR TITER (test code = 3500) NOT INDIC. TITER HIV 1/2 4TH GEN, RFLX CONF NON-REACTIVE (test code = 3514) HEPATITIS C REFLEX [id number] 00:00:00 Test Item Value Reference Range Interpretation Comments HEPATITIS C ANTIBODY (test code NON-REACTIVE = 4675) HEPATITIS C REFLEX [id number] 00:00:00 Test Item Value Reference Range Interpretation Comments HEPATITIS C ANTIBODY (test code NON-REACTIVE = 4675) VARICELLA ZOSTER [id number] 00:00:00 Test Item Value Reference Range Interpretation Comments VARICELLA ZOSTER IgG (test code = 177 INDEX 56844) VARICELLA ZOSTER [id number] 00:00:00 Test Item Value Reference Range Interpretation Comments VARICELLA ZOSTER IgG (test code = 177 INDEX 01922) DRUG ABUSE PANEL 10 WITH [id number] 00:00:00 Test Item Value Reference Range Interpretation Comments AMPHETAMINES (test code = NEGATIVE 3201) BARBITURATES (test code = NEGATIVE 3202) BENZODIAZEPINES (test code NEGATIVE = 3203) CANNABINOIDS (test code = SEE REFLEX TESTING 3204) COCAINE METABOLITE (test NEGATIVE code = 3205) OPIATES (test code = 3209) NEGATIVE OXYCODONE (test code = NEGATIVE 00433) PHENCYCLIDINE (test code = NEGATIVE 3210) METHADONE (test code = NEGATIVE 3207) BUPRENORPHINE (test code = NEGATIVE 30311) POCT [id number] 21:11:00 Test Item Value Reference Range Interpretation Comments POCT PREG (test code = 1605) Negative On board controls acceptable with C Yes Line (test code = 3574) POCT PREG LOT # (test code = 3575) POCT PREG TEST DATE (test code = 3576) [id number] 21:11:00 Test Item Value Reference Range Interpretation Comments POCT PREG (test code = 1605) Negative On board controls acceptable with C Yes Line (test code = 3574) POCT PREG LOT # (test code = 3575) POCT PREG TEST DATE (test code = 3576) [facility]
[2022-09-01 19:07] LABS: Absolute Lymphocytes (CBC) 1.9 K/uL (0.7-4.9); Hematocrit 40.6 % (36.0-45.0); Lymphocytes % 23.6 % (15.3-44.8); MCV 89.1 fL (80-100); MPV 8.4 fL (7.6-11.3); RBC Red Blood Cell Count 4.56 M/uL (3.86-4.86)
[2022-09-01 19:27] LABS: Potassium 3.4 mmol/L (3.5-5.1)
--- NOTE | 2022-09-01 20:04 | RAD REPORT ---
EXAM DESCRIPTION: US - 1St Trimest Single 1St Fetus - 09/01/2022 7:24 pm CLINICAL HISTORY: with pelvic pain COMPARISON: None. FINDINGS: The patient declined to have an endovaginal sonogram The uterus measures 10 x 7 x 7 centimeters. A normal appearing gestational sac is present within the endometrium. Within this is a yolk sac and pole with a crown-rump length 0.7 centimeters. Card iac activity not visualized Neither ovary visualized secondary to overlying bowel gas The right and left adnexa are unremarkable No significant free fluid is seen. IMPRESSION: Intrauterine with an estimated gestational 6 weeks 5 days MILA 04/22/2023 Cardiac activity was not detected. This may be secondary to a combination of the early gestational an d an endovaginal sonogram not being performed. Failed can also have this appearance. It is recommended that the patient have a followup endovaginal sonogram in 1 week for re-evaluation
[2022-09-01 20:22] LABS: Urine Blood 3+ (Negative); Urine Glucose Negative (Negative); Urine Protein 1+ (Negative); Urine Specific Gravity >=1.030 (1.005-1.030)
--- NOTE | 2022-09-01 21:22 | ER ---
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 . Coronavirus screen: At this time, the client does not indicate any symptoms associated with coronavirus-19. Ebola Screen: No symptoms or risks identified at this time. Initial Sepsis Screen: Does the patient meet any 2 criteria? No. Patient's initial sepsis screen is negative. Does the patient have a suspected source of infection? No. Patient's initial sepsis screen is negative. Risk Assessment: Do you want to hurt yourself or someone else? Patient reports no desire to harm self or others. Onset of symptoms was September 01, 2022. 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 Historical: - Allergies: 18:19 No Known Allergies; hb - PMHx: 18:57 None; aa5 - Immunization history:: Adult Immunizations up to date. - Social history:: Smoking status: unknown. Screenin:00 Abuse screen: Denies threats or abuse. Nutritional screening: No deficits noted. aa5 Tuberculosis screening: No symptoms or risk factors identified. Fall Risk None identified. Assessment: 18:45 General: Appears comfortable, Behavior is calm, cooperative. Pain: Complains of pain in aa5 right lower quadrant and left lower quadrant Pain currently is 3 out of 10 on a pain scale. 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 Neuro: Level of Consciousness is awake, alert, obeys commands, Oriented to person, place, time, situation. Cardiovascular: Heart tones S1 S2 present Rhythm is regular. Respiratory: Airway is patent Respiratory effort is even, unlabored, Respiratory pattern is regular, symmetrical. GI: Abdomen is flat, non-distended, Bowel sounds present X 4 quads. Abd is soft and non tender X 4 quads. 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 EENT: No signs and/or symptoms were reported regarding the EENT system. Derm: Skin is pink, warm \T\ dry. Musculoskeletal: Range of motion: intact in all extremities. 19:30 General: Appears comfortable, Behavior is calm, cooperative. Pain: Denies pain. Neuro: ha1 Level of Consciousness is awake, alert, obeys commands, Oriented to person, place, time, situation. Cardiovascular: Heart tones S1 S2 Rhythm is sinus rhythm. Respiratory: Airway is patent Respiratory effort is even, unlabored, Respiratory pattern is regular, symmetrical. GI: Abdomen is flat, non-distended, Bowel sounds present X 4 quads. Abd is soft and non tender X 4 quads. : Reports vaginal bleeding that is spotty, since today. EENT: No signs and/or symptoms were reported regarding the EENT system. Derm: Skin is pink, warm \T\ dry. Musculoskeletal: Circulation, motion, and sensation intact. Range of motion: intact in all extremities. 20:27 Reassessment: Patient and/or family updated on plan of care and expected duration. Pain ha1 level reassessed. Patient is alert, oriented x 3, equal unlabored respirations, skin warm/dry/pink. awaiting in lab results Patient denies pain at this time. 21:35 Reassessment: Patient appears in no apparent distress at this time. Patient and/or jb4 family updated on plan of care and expected duration. Pain level reassessed. Patient is alert, oriented x 3, equal unlabored respirations, skin warm/dry/pink. Vital Signs: 18:18 BP 115 / 65; Pulse 67; Resp 16; Temp 98.3; Pulse Ox 100% on R/A; Weight 67.13 kg; hb Height 5 ft. 4 in. (162.56 cm); Pain 3/10; 19:30 BP 102 / 55; Pulse 60; Resp 16 S; Pulse Ox 100% on R/A; ha1 20:27 BP 124 / 85; Pulse 64; Resp 16 S; Pulse Ox 97% on R/A; ha1 21:35 BP 109 / 60; Pulse 68; Resp 16; Pulse Ox 98% on R/A; jb4 18:18 Body Mass Index 25.40 (67.13 kg, 162.56 cm) hb ED Course: 18:15 Patient arrived in ED. rg4 18:16 Munir Blake PA is PHCP. cp 18:16 Daron Cheney MD is Attending Physician. cp 18:19 Triage completed. hb 18:19 Arm band placed on. hb 18:45 Patient has correct armband on for positive identification. Placed in gown. Bed in low aa5 position. Call light in reach. Side rails up X2. Pulse ox on. NIBP on. 18:49 Initial lab(s) drawn, by me, sent to lab. Inserted saline lock: 20 gauge in right aa5 antecubital area, using aseptic technique. Blood collected. 18:56 Bisi Gann RN is Primary Nurse. aa5 19:10 Report given to MARKUS Stout and MARKUS Davis. aa5 19:25 1St Trimest Single 1St Fetus In Process Unspecified. EDMS 19:46 Primary Nurse role handed off by Bisi Gann RN eb 19:48 Crystal Marshall MD is Attending Physician. cp 19:52 Susan Elizabeth, MARKUS is Primary Nurse. ha1 21:35 No provider procedures requiring assistance completed. IV discontinued, intact, jb4 bleeding controlled, No redness/swelling at site. Pressure dressing applied. Administered Medications: 21:27 Drug: Potassium Effervescent Tablet 25 mEq Route: PO; jb4 21:35 Follow up: Response: Medication administered at discharge. jb4 Medication: 21:35 VIS not applicable for this client. jb4 Outcome: 21:22 Discharge ordered by . cp 21:35 Discharged to home ambulatory. jb4 21:35 Condition: stable 21:35 Discharge instructions given to patient, Instructed on discharge instructions, follow up and referral plans. Demonstrated understanding of instructions, follow-up care. 21:36 Patient left the ED. jb4 Signatures: Dispatcher [employer] EDMS Bisi Gann RN RN aa5 Munir Blake PA PA cp Baxter, Heather, RN RN hb Garcia, Rubi rg4 Girish Dennison, RN RN jb4 Roxi Santana Heidy, MARKUS RN ha1 Corrections: (The following items were deleted from the chart) 20:04 19:54 General: Appears comfortable, Behavior is calm, cooperative, ha1 ha1
--- NOTE | 2022-09-01 21:22 | EDPHYS ---
Physician Documentation [facility] Name: Anabel Frye Age: 22 yrs Sex: Female : 2000 Arrival Date: 09/01/2022 Time: 18:15 Bed 5 Private MD: ED Physician Crystal Marshall HPI: 09/01 18:40 This 22 yrs old Female presents to ER via Ambulatory with complaints of Vaginal cp Bleeding, + Preg <12wks. 18:40 The patient presents to the emergency department with abdominal pain, of the left lower cp quadrant and right lower quadrant, vaginal bleeding, that is light, with no clots. The estimated gestational age is 9 weeks. course: care: at a clinic, Ultrasound: the patient has not had an ultrasound. Previous pregnancies: in previous pregnancies patient has had vaginal delivery, no complications. Associated signs and symptoms: The patient has no apparent associated signs or symptoms. 18:42 Patient reports having first US scheduled for this upcoming Saturday. cp [employer]: 18:40 2, Full Term 1, Living 1, LMP 06/29/2022, Verified, EDC 04/05/2023, cp Gestational age from LMP: 9 weeks 2 days 18:50 2, Full Term 1, Premature 0, 0, Living 1, LMP 06/28/2022, Reports she aa5 had a vaginal delivery 4 months ago. Historical: - Allergies: 18:19 No Known Allergies; hb - PMHx: 18:57 None; aa5 - Immunization history:: Adult Immunizations up to date. - Social history:: Smoking status: unknown. ROS: 18:45 Constitutional: Negative for body aches, chills, fever, poor PO intake. cp 18:45 Eyes: Negative for injury, pain, redness, and discharge. cp 18:45 ENT: Negative for drainage from ear(s), ear pain, sore throat, difficulty swallowing, difficulty handling secretions. 18:45 Cardiovascular: Negative for chest pain. 18:45 Respiratory: Negative for cough, shortness of breath, wheezing. 18:45 Abdomen/GI: Positive for abdominal pain, Negative for vomiting, diarrhea, constipation. 18:45 : Positive for vaginal bleeding. 18:45 Neuro: Negative for altered mental status, dizziness, headache, syncope, weakness. cp 18:45 All other systems are negative. cp Exam: 18:50 Constitutional: The patient appears in no acute distress, alert, awake, comfortable, cp non-toxic, well developed, well nourished. 18:50 Head/Face: Normocephalic, atraumatic. cp 18:50 Eyes: Periorbital structures: appear normal, Conjunctiva: normal, no exudate, no injection, Sclera: no appreciated abnormality, Lids and lashes: appear normal, bilaterally. 18:50 ENT: External ear(s): are unremarkable, Nose: is normal, Mouth: Lips: moist, Oral mucosa: moist, Posterior pharynx: Airway: no evidence of obstruction, patent. 18:50 Chest/axilla: Inspection: normal. 18:50 Cardiovascular: Rate: normal, Rhythm: regular. 18:50 Respiratory: the patient does not display signs of respiratory distress, Respirations: normal, no use of accessory muscles, no retractions, labored breathing, is not present, Breath sounds: are clear throughout, no decreased breath sounds, no stridor, no wheezing. 18:50 Abdomen/GI: Inspection: abdomen appears normal, Palpation: soft, in all quadrants, mild abdominal tenderness, in the right lower and left lower abdomen, rebound tenderness, is not appreciated, involuntary guarding, is not appreciated. 18:50 Back: pain, is absent, ROM is normal. 18:50 Neuro: Orientation: to person, place \T\ time. Mentation: is normal, Motor: moves all fours, strength is normal, Gait: is steady, at a normal pace, without difficulty. Vital Signs: 18:18 BP 115 / 65; Pulse 67; Resp 16; Temp 98.3; Pulse Ox 100% on R/A; Weight 67.13 kg; hb Height 5 ft. 4 in. (162.56 cm); Pain 3/10; 19:30 BP 102 / 55; Pulse 60; Resp 16 S; Pulse Ox 100% on R/A; ha1 20:27 BP 124 / 85; Pulse 64; Resp 16 S; Pulse Ox 97% on R/A; ha1 21:35 BP 109 / 60; Pulse 68; Resp 16; Pulse Ox 98% on R/A; jb4 18:18 Body Mass Index 25.40 (67.13 kg, 162.56 cm) hb MDM: 18:26 Patient medically screened. cp 19:00 Differential diagnosis: threatened Ab, inevitable Ab, retained Ab, ectopic , cp uti. 21:20 Data reviewed: vital signs, nurses notes, lab test result(s), radiologic studies, cp ultrasound. 21:20 Counseling: I had a detailed discussion with the patient and/or guardian regarding: the cp historical points, exam findings, and any diagnostic results supporting the discharge/admit diagnosis, lab results, radiology results, the need for outpatient follow up, an OB/Gyne specialist, to return to the emergency department if symptoms worsen or persist or if there are any questions or concerns that arise at home. ED course: VSS. Discussed results of labs and US that was unable to detect HR. Discussed today's findings could mean is earlier than 9 weeks vs early miscarriage vs exam not being done transvaginal. Will discharge to home and recommend repeat beta-hcg 48 hours and f/u with OB. 09/01 18:32 Order name: Abo/rh Typing; Complete Time: 20:09 09/01 20:10 Interpretation: Reviewed. 09/01 18:32 Order name: Basic Metabolic Panel; Complete Time: 21:18 09/01 20:10 Interpretation: Normal except: K 3.4. 09/01 18:32 Order name: CBC with Diff; Complete Time: 20:09 09/01 20:10 Interpretation: Reviewed. 09/01 18:32 Order name: Quantitative Hcg; Complete Time: 21:18 09/01 21:18 Interpretation: Abnormal: HCGQ 98720. 09/01 20:23 Order name: Urine Dipstick-Ancillary; Complete Time: 20:57 EDMS 09/01 20:57 Interpretation: Normal except: UKET 1+; UBLD 3+; UPROT 1+. 09/01 20:28 Order name: Urine --Ancillary (enter results) 09/01 18:32 Order name: IV Saline Lock; Complete Time: 18:56 09/01 18:32 Order name: Labs collected and sent; Complete Time: 18:56 09/01 18:32 Order name: NPO; Complete Time: 18:33 09/01 18:32 Order name: Urine Dipstick-Ancillary (obtain specimen); Complete Time: 20:23 cp 09/01 18:32 Order name: Urine Test (obtain specimen); Complete Time: 20:23 cp 09/01 19:25 Order name: 1St Trimest Single 1St Fetus; Complete Time: 20:09 EDMS 09/01 20:12 Interpretation: Report reviewed. cp Administered Medications: 21:27 Drug: Potassium Effervescent Tablet 25 mEq Route: PO; jb4 21:35 Follow up: Response: Medication administered at discharge. jb4 Disposition: 09/02 00:33 STAFF ATTESTATION STATEMENT: I was immediately available onsite in the emergency sd2 department for consultation in the care of this patient. I did not see or examine this patient. Crystal Marshall MD. Disposition Summary: 09/01/22 21:22 Discharge Ordered Location: Home cp Problem: new cp Symptoms: have improved cp Condition: Stable cp Diagnosis - Threatened cp Followup: cp - With: Private Physician - When: 48 Hours - Reason: Repeat Beta-HCG (48 Hours) Discharge Instructions: - Discharge Summary Sheet cp - Abdominal Pain During cp - Care cp - Threatened Miscarriage cp - Vaginal Bleeding During , First Trimester cp - First Trimester of cp - Activity Restriction During cp Forms: - Medication Reconciliation Form cp - Thank You Letter cp - Antibiotic Education cp - Prescription Opioid Use cp Signatures: Dispatcher [employer] EDMS Bisi Gann, RN RN aa5 Munir Blake PA PA cp Arina Berry, RN RN Girish Dennison RN RN jb4 Crystal Marshall MD MD sd2 Susan Elizabeth RN RN ha1 Corrections: (The following items were deleted from the chart) 09/01 18:33 OB Limited+[email or web address] ordered. EDMS EDMS
[2022-09-01] MEDS ORDERED: POTASSIUM 25 MEQ EFFERV TAB ONE (21:23)
[2022-09-01 21:43] VITALS: TEMP 98.3
[2022-09-01 21:46] VITALS: BP 109/60; O2SAT 98
[2022-09-01 23:09] LABS: Urine Specific Gravity/Preg >1.030 (1.005-1.030)
== END 2022-09-01 21:36 | disposition home or self-care (01) ==
LOC: ER 18:11
DX: O20.0 Threatened abortion (principal); Z3A.09 9 weeks gestation of pregnancy
CPT/HCPCS: 36415; 76801; 80048; 81003; 81025; 84702; 85025; 86900; 86901; 99284

== ENCOUNTER 2022-09-03 21:16 | Emergency (ER) | payer OTHER ==
--- OUTSIDE RECORDS SUMMARY | 2022-09-03 21:23 | XMS REPORT | Continuity of Care Document ---
:2000 Author Organization [facility] t Address [address] [place] [address] Care Team Providers Name Role Phone Isiah MCKAY, Jamal Primary Care Physician [phone] RADIOLOGY Attending Clinician Unavailable James Parker Attending Clinician Unavailable Doctor Unassigned, [place] Attending Clinician Unavailable ELIZABETH LI Attending Clinician Unavailable Elizabeth Ortiz Attending Clinician Carmen Flores Attending Clinician CARMEN GOSS Attending Clinician Unavailable CARMEN RODRIGUEZ Attending Clinician Unavailable James Parker Admitting Clinician Unavailable ELIZABETH LI Admitting Clinician Unavailable Payers Payer Name Policy Type Policy Number Effective Date Expiration Date Guido dubose [facility] [id number] 2022 00:00:00 [place] [id number] 2020 00:00:00 Problems Condition Condition Condition Status [...] [facility] Clear s 00:00: [place] 00 [facility] No Known DA Active U [facility] Allergie 6-20 Clear s 00:00: [place] 00 [facility] NO KNOWN Drug Active Univers ALLERGIE Class ity of S [facility] Social History Social Habit Start Date Stop Date Quantity Comments Source Exposure to Not sure [facility] SARS-CoV-2 [facility] (event) Branch History of Passive smoker University of tobacco use [facility] Tobacco use and 2020-05-09 2020-05-09 Smokeless tobacco Un iversity of exposure 00:00:00 00:00:00 non-user [facility] Sex Assigned At 2000 2002 Universit y of 00:00:00 00:00:00 [facility] Smoking Status Start Date Stop Date Source Never smoked tobacco [facility] Medications Ordered Filled Start Stop Current Ordering Indication Dosage Frequency Signature Comments Components Source Medication Medication Date Date Medication? Clinician (SIG) Name Name PLACE 1 2021-10 No TABLET ON 11 TONGUE AND 00:00: ALLOW TO 00 DISSOLVE 3 TIMES DAILY NEEDED. APPLY 2021-10 No 1 SPARINGLY 1-10 TO AFFECTED 00:00: AREA(S) 3 00 TIMES A DAY TAKE ONE 2021-10 No AND HALF 0-25 (1.5 00:00: TABLETS)[place] 00 LY IN THE EVENING WITH FOOD TAKE ONE 2021-10 No AND HALF 0-25 (1.5 00:00: TABLETS)[place] 00 LY IN THE EVENING WITH FOOD cephalexin 2021- No 1mg 500 mg 5-20 tablet 00:00: 00 cephalexin 2021-0 No 1mg 500 mg 5-20 tablet 00:00: [...] 2021-0 No Unknown 3-04 00:00: 00 Dose 2022-0 [...] 1mg 150 mg 2-07 tablet 00:00: 00 fluconazole 2022-0 No 1mg 150 mg 2-07 tablet 00:00: 00 clotrimazol 2022-0 No 1% e 1 % 1-12 vaginal 00:00: cream 00 clotrimazol 2022-0 No 1% e 1 % 1-12 vaginal 00:00: cream 00 metronidazo 2022-0 No 1mg le 500 mg 1-10 tablet 00:00: 00 metronidazo 2022-0 No 1mg le 500 mg 1-10 tablet 00:00: 00 Zofran 4 mg 2021-1 No 1mg tablet 2-13 00:00: 00 Zofran 4 mg 2021-1 No 1mg tablet 2-13 00:00: 00 Zofran 4 mg 2021-1 No 1mg tablet 1-16 00:00: 00 Dose 2021-1 No Unknown 1-16 00:00: 00 Zofran 4 mg 2021-1 No 1mg tablet 1-16 00:00: 00 Dose 2021-1 No Unknown 1-16 00:00: 00 Zofran 4 mg 2021-1 No 1mg tablet 1- 00:00: 00 Zofran 4 mg 2021-1 No 1mg tablet 10-14 00:00: 00 clotrimazol 2020-10 No 1% e 1 % 0-19 vaginal 00:00: cream clotrimazol 2020-10 No 1% e 1 % 0-19 vaginal 00:00: cream Xulane 150 2019-10 No 1mcg/24 mcg-35 1-20 hr mcg/24 hr 00:00: transdermal 00 patch Xulane 150 2019-10 No 1mcg/24 mcg-35 1-20 hr mcg/24 hr 00:00: transdermal 00 patch CETIRIZINE 2019- No Take by Uni vers HCL (ZYRTEC 727 07-27 mouth. ity o f ORAL) 20:12: 00:00 [place] : [facility] CETIRIZINE 2019- No Take by Uni vers HCL (ZYRTEC 7 0727 mouth. ity o f ORAL) 20:12: 00:00 [place] :[address] [place] [address] No known 2019- No Univers medications 7- ity of 15:27: [address] No known 2019-0 No Univers medications 7-27 ity of 15:27: [address] No known No No known Unive rs medications 7-27 medication it y of 15:27: s [address] CETIRIZINE Yes Take by Univ ers HCL (ZYRTEC 8-18 mouth. ity of ORAL) 18:14: [address] ketoconazol Yes [id number] Apply to Univers e (NIZORAL) 04-05 area(s) ity o f 2 % cream 00:00: daily. [address] ketoconazol 2020- No [id number] Apply to Univers e (NIZORAL) 04-05 area(s) ity of 2 % cream 00:00: 00:00 daily. [place] 00 : [facility] ketoconazol 2020- No [id number] Apply to Univers e (NIZORAL) 04-05 area(s) ity of 2 % cream 00:00: 00:00 daily. [place] 00 :[address] [place] [address] No known No Univers medications ity of [facility] No known No Univers medications ity of [facility] Immunizations Ordered Immunization Filled Immunization Date Status Commen ts Source Name Name Meningococcal 2020-05-09 Completed University of Polysaccharide 00:00:00 [place] [facility] (groups A, C, Y and Branc h W-135) conjugate vaccine (MCV4P) Meningococcal B, OMV 2020-05-09 Completed Univ ersity of 00:00:00 [facility] HPV9 2020-05-09 Completed University of 00:00:00 [facility] Meningococcal 2020-05-09 Completed University of Polysaccharide 00:00:00 [place] [facility] (groups A, C, Y and Branc h W-135) conjugate vaccine (MCV4P) Meningococcal B, OMV 2020-05-09 Completed Univ ersity of 00:00:00 [facility] HPV9 2020-05-09 Completed University of 00:00:00 [facility] Meningococcal 2020-05-09 Completed University of Polysaccharide 00:00:00 [place] [facility] (groups A, C, Y and Branc h W-135) conjugate vaccine (MCV4P) Meningococcal B, OMV 2020-05-09 Completed Univ ersity of 00:00:00 [facility] HPV9 2020-05-09 Completed University of 00:00:00 [facility] Meningococcal 2020-05-09 Completed University of Polysaccharide 00:00:00 [place] [facility] (groups A, C, Y and Branc h W-135) conjugate vaccine (MCV4P) Meningococcal B, OMV 2020-05-09 Completed Univ ersity of 00:00:00 [facility] HPV9 2020-05-09 Completed University of 00:00:00 [facility] Meningococcal 2020-05-09 Completed University of Polysaccharide 00:00:00 [place] [facility] (groups A, C, Y and Branc h W-135) conjugate vaccine (MCV4P) Meningococcal B, OMV 2020-05-09 Completed Univ ersity of 00:00:00 [facility] HPV9 2020-05-09 Completed University of 00:00:00 [facility] Meningococcal 2020-05-09 Completed University of Polysaccharide 00:00:00 [place] [facility] (groups A, C, Y and Branc h W-135) conjugate vaccine (MCV4P) Meningococcal B, OMV 2020-05-09 Completed Univ ersity of 00:00:00 [facility] HPV9 2020-05-09 Completed University of 00:00:00 [facility] Meningococcal 2020-05-09 Completed University of Polysaccharide 00:00:00 [facility] trent (groups A, C, Y and Branc h W-135) conjugate vaccine (MCV4P) Meningococcal B, OMV 2020-05-09 Completed Univ ersity of 00:00:00 [facility] HPV9 2020-05-09 Completed University of 00:00:00 [facility] Meningococcal Vaccine 2015-01-17 Completed Uni versity of 00:00:00 [facility] TDAP 2015-01-17 Completed University of 00:00:00 [facility] Meningococcal Vaccine 2015-01-17 Completed Uni versity of 00:00:00 [facility] TDAP 2015-01-17 Completed University of 00:00:00 [facility] Meningococcal Vaccine 2015-01-17 Completed Uni versity of 00:00:00 [facility] TDAP 2015-01-17 Completed University of 00:00:00 [facility] Meningococcal Vaccine 2015-01-17 Completed Uni versity of 00:00:00 [facility] TDAP 2015-01-17 Completed University of 00:00:00 [facility] Meningococcal Vaccine 2015-01-17 Completed Uni versity of 00:00:00 [facility] TDAP 2015-01-17 Completed University of 00:00:00 [facility] Meningococcal Vaccine 2015-01-17 Completed Uni versity of 00:00:00 [facility] TDAP 2015-01-17 Completed University of 00:00:00 [facility] Meningococcal Vaccine 2015-01-17 Completed Uni versity of 00:00:00 [facility] TDAP 2015-01-17 Completed University of 00:00:00 [facility] Varicella 2009-10-04 Completed University of (varivax)(chicken 00:00:00 [...] Varicella 2009-10-04 Completed University of (varivax)(chicken 00:00:00 [place] [facility] pox) Branch Varicella 2009-10-04 Completed University of (varivax)(chicken 00:00:00 [place] [facility] pox) Branch HEPATITIS A 2009-03-11 Completed University of 00:00:00 [facility] HEPATITIS A 2009-03-11 Completed University of 00:00:00 [facility] HEPATITIS A 2009-03-11 Completed University of 00:00:00 [facility] HEPATITIS A 2009-03-11 Completed University of 00:00:00 [facility] HEPATITIS A 2009-03-11 Completed University of 00:00:00 [facility] HEPATITIS A 2009-03-11 Completed University of 00:00:00 [facility] HEPATITIS A 2009-03-11 Completed University of 00:00:00 [facility] DTAP 2006-11-20 Completed University of 00:00:00 [facility] HEPATITIS A 2006-11-20 Completed University of 00:00:00 [facility] MMR 2006-11-20 Completed University of 00:00:00 [facility] Polio (IPV/OPV) 2006-11-20 Completed Universit y of 00:00:00 [facility] DTAP 2006-11-20 Completed University of 00:00:00 [facility] HEPATITIS A 2006-11-20 Completed University of 00:00:00 [facility] MMR 2006-11-20 Completed University of 00:00:00 [facility] Polio (IPV/OPV) 2006-11-20 Completed Universit y of 00:00:00 [facility] DTAP 2006-11-20 Completed University of 00:00:00 [facility] HEPATITIS A 2006-11-20 Completed University of 00:00:00 [facility] MMR 2006-11-20 Completed University of 00:00:00 [facility] Polio (IPV/OPV) 2006-11-20 Completed Universit y of 00:00:00 [facility] DTAP 2006-11-20 Completed University of 00:00:00 [facility] DTAP 2006-11-20 Completed University of 00:00:00 [facility] HEPATITIS A 2006-11-20 Completed University of 00:00:00 [facility] MMR 2006-11-20 Completed University of 00:00:00 [facility] Polio (IPV/OPV) 2006-11-20 Completed Universit y of 00:00:00 [facility] DTAP 2006-11-20 Completed University of 00:00:00 [facility] HEPATITIS A 2006-11-20 Completed University of 00:00:00 [facility] MMR 2006-11-20 Completed University of 00:00:00 [facility] HEPATITIS A 2006-11-20 Completed University of 00:00:00 [facility] Polio (IPV/OPV) 2006-11-20 Completed Universit y of 00:00:00 [facility] MMR 2006-11-20 Completed University of 00:00:00 [facility] Polio (IPV/OPV) 2006-11-20 Completed Universit y of 00:00:00 [facility] DTAP 2006-11-20 Completed University of 00:00:00 [facility] HEPATITIS A 2006-11-20 Completed University of 00:00:00 [facility] MMR 2006-11-20 Completed University of 00:00:00 [facility] Polio (IPV/OPV) 2006-11-20 Completed Universit y of 00:00:00 [facility] DTAP 2003-10-18 Completed University of 00:00:00 [facility] HIB 4 Dose Schedule 2003-10-18 Completed Unive rsity of 00:00:00 [facility] Pneumococcal 7 2003-10-18 Completed University of Conjugate, PCV7 00:00:00 [place] [facility] (Prevnar7) [facility] 2003-10-18 Completed University of 00:00:00 [facility] HIB 4 Dose Schedule 2003-10-18 Completed Unive rsity of 00:00:00 [facility] Pneumococcal 7 2003-10-18 Completed University of Conjugate, PCV7 00:00:00 [place] [facility] (Prevnar7) Branch DT 2003-10-18 Completed University of 00:00:00 [facility] HIB 4 Dose Schedule 2003-10-18 Completed Unive rsity of 00:00:00 [facility] DTAP 2003-10-18 Completed University of 00:00:00 [facility] Pneumococcal 7 2003-10-18 Completed University of Conjugate, PCV7 00:00:00 [place] [facility] (Prevnar7) Yulan DT 2003-10-18 Completed University of 00:00:00 [facility] HIB 4 Dose Schedule 2003-10-18 Completed Unive rsity of 00:00:00 [facility] Pneumococcal 7 2003-10-18 Completed University of Conjugate, PCV7 00:00:00 [place] [facility] (Prevnar7) Branch DTAP 2003-10-18 Completed University of 00:00:00 [facility] HIB 4 Dose Schedule 2003-10-18 Completed Unive rsity of 00:00:00 [facility] HIB 4 Dose Schedule 2003-10-18 Completed Unive rsity of 00:00:00 [facility] Pneumococcal 7 2003-10-18 Completed University of Conjugate, PCV7 00:00:00 [place] [facility] (Prevnar7) Branch Pneumococcal 7 2003-10-18 Completed University of Conjugate, PCV7 00:00:00 [place] [facility] (Prevnar7) Branch DTAP 2003-10-18 Completed University of 00:00:00 [facility] HIB 4 Dose Schedule 2003-10-18 Completed Unive rsity of 00:00:00 [facility] Pneumococcal 7 2003-10-18 Completed University of Conjugate, PCV7 00:00:00 [place] [facility] (Prevnar7) Branch MMR 2003-07-27 Completed University of 00:00:00 [facility] Varicella 2003-07-27 Completed University of (varivax)(chicken 00:00:00 [place] [facility] pox) Branch MMR 2003-07-27 Completed University of 00:00:00 [facility] Varicella 2003-07-27 Completed University of (varivax)(chicken 00:00:00 [place] [facility] pox) Branch MMR 2003-07-27 Completed University of 00:00:00 [facility] Varicella 2003-07-27 Completed University of (varivax)(chicken 00:00:00 [place] [facility] pox) Branch MMR 2003-07-27 Completed University of 00:00:00 [facility] Varicella 2003-07-27 Completed University of (varivax)(chicken 00:00:00 [place] [facility] pox) Branch MMR 2003-07-27 Completed University of 00:00:00 [facility] Varicella 2003-07-27 Completed University of (varivax)(chicken 00:00:00 [place] [facility] pox) Branch MMR 2003-07-27 Completed University of 00:00:00 [facility] Varicella 2003-07-27 Completed University of (varivax)(chicken 00:00:00 [place] [facility] pox) Branch MMR 2003-07-27 Completed University of 00:00:00 [facility] Varicella 2003-07-27 Completed University of (varivax)(chicken 00:00:00 [place] [facility] pox) Branch HIB 4 Dose Schedule 2003 Completed Unive rsity of 00:00:00 [facility] HIB 4 Dose Schedule 2003 Completed Unive rsity of 00:00:00 [facility] HIB 4 Dose Schedule 2003 Completed Unive rsity of 00:00:00 [facility] HIB 4 Dose Schedule 2003 Completed Unive rsity of 00:00:00 [facility] Branch HIB 4 Dose Schedule 2003 Completed Unive rsity of 00:00:00 [facility] HIB 4 Dose Schedule 2003 Completed Unive rsity of 00:00:00 [facility] HIB 4 Dose Schedule 2003 Completed Unive rsity of 00:00:00 [facility] DTAP 2003-02-03 Completed University of 00:00:00 [facility] HIB 4 Dose Schedule 2003-02-03 Completed Unive rsity of 00:00:00 [facility] Hep B, Adol or Pedi 2003-02-03 Completed Unive rsity of Dosage 00:00:00 [facility] Polio (IPV/OPV) 2003-02-03 Completed Universit y of 00:00:00 [facility] DTAP 2003-02-03 Completed University of 00:00:00 [facility] HIB 4 Dose Schedule 2003-02-03 Completed Unive rsity of 00:00:00 [facility] Hep B, Adol or Pedi 2003-02-03 Completed Unive rsity of Dosage 00:00:00 [facility] Polio (IPV/OPV) 2003-02-03 Completed Universit y of 00:00:00 [facility] DTAP 2003-02-03 Completed University of 00:00:00 [facility] HIB 4 Dose Schedule 2003-02-03 Completed Unive rsity of 00:00:00 [facility] DTAP 2003-02-03 Completed University of 00:00:00 [facility] Hep B, Adol or Pedi 2003-02-03 Completed Unive rsity of Dosage 00:00:00 [facility] Polio (IPV/OPV) 2003-02-03 Completed Universit y of 00:00:00 [facility] DTAP 2003-02-03 Completed University of 00:00:00 [place] [facility] HIB 4 Dose Schedule 2003-02-03 Completed Unive rsity of 00:00:00 [facility] Hep B, Adol or Pedi 2003-02-03 Completed Unive rsity of Dosage 00:00:00 [facility] Polio (IPV/OPV) 2003-02-03 Completed Universit y of 00:00:00 [facility] HIB 4 Dose Schedule 2003-02-03 Completed Unive rsity of 00:00:00 [facility] Branch DTAP 2003-02-03 Completed University of 00:00:00 [facility] Branch HIB 4 Dose Schedule 2003-02-03 Completed Unive rsity of 00:00:00 [facility] Branch Hep B, Adol or Pedi 2003-02-03 Completed Unive rsity of Dosage 00:00:00 [facility] Polio (IPV/OPV) 2003-02-03 Completed Universit y of 00:00:00 [facility] Branch Hep B, Adol or Pedi 2003-02-03 Completed Unive rsity of Dosage 00:00:00 [facility] Polio (IPV/OPV) 2003-02-03 Completed Universit y of 00:00:00 [facility] Branch DTAP 2003-02-03 Completed University of 00:00:00 [facility] HIB 4 Dose Schedule 2003-02-03 Completed Unive rsity of 00:00:00 [facility] Branch Hep B, Adol or Pedi 2003-02-03 Completed Unive rsity of Dosage 00:00:00 [facility] Polio (IPV/OPV) 2003-02-03 Completed Universit y of 00:00:00 [facility] Branch HIB 4 Dose Schedule 2002 Completed Unive rsity of 00:00:00 [facility] Polio (IPV/OPV) 2002 Completed Universit y of 00:00:00 [facility] Branch DTAP 2002 Completed University of 00:00:00 [facility] HIB 4 Dose Schedule 2002 Completed Unive rsity of 00:00:00 [facility] Polio (IPV/OPV) 2002 Completed Universit y of 00:00:00 [facility] Branch DTAP 2002 Completed University of 00:00:00 [facility] DTAP 2002 Completed University of 00:00:00 [facility] HIB 4 Dose Schedule 2002 Completed Unive rsity of 00:00:00 [facility] Polio (IPV/OPV) 2002 Completed Universit y of 00:00:00 [facility] DTAP 2002 Completed University of 00:00:00 [facility] HIB 4 Dose Schedule 2002 Completed Unive rsity of 00:00:00 [facility] HIB 4 Dose Schedule 2002 Completed Unive rsity of 00:00:00 [facility] Polio (IPV/OPV) 2002 Completed Universit y of 00:00:00 [facility] DTAP 2002 Completed University of 00:00:00 [facility] HIB 4 Dose Schedule 2002 Completed Unive rsity of 00:00:00 [facility] Polio (IPV/OPV) 2002 Completed Universit y of 00:00:00 [facility] Polio (IPV/OPV) 2002 Completed Universit y of 00:00:00 [facility] DTAP 2002 Completed University of 00:00:00 [facility] HIB 4 Dose Schedule 2002 Completed Unive rsity of 00:00:00 [facility] Polio (IPV/OPV) 2002 Completed Universit y of 00:00:00 [facility] DTAP 2002 Completed University of 00:00:00 [facility] HIB 4 Dose Schedule 2002 Completed Unive rsity of 00:00:00 [facility] Polio (IPV/OPV) 2002 Completed Universit y of 00:00:00 [facility] Pneumococcal 7 2002 Completed University of Conjugate, PCV7 00:00:00 [place] [facility] (Prevnar7) Branch DTAP 2002 Completed University of 00:00:00 [facility] HIB 4 Dose Schedule 2002 Completed Unive rsity of 00:00:00 [facility] Polio (IPV/OPV) 2002 Completed Universit y of 00:00:00 [facility] Pneumococcal 7 2002 Completed University of Conjugate, PCV7 00:00:00 [place] [facility] (Prevnar7) Branch DTAP 2002 Completed University of 00:00:00 [facility] DTAP 2002 Completed University of 00:00:00 [facility] HIB 4 Dose Schedule 2002 Completed Unive rsity of 00:00:00 [facility] Polio (IPV/OPV) 2002 Completed Universit y of 00:00:00 [facility] Pneumococcal 7 2002 Completed University of Conjugate, PCV7 00:00:00 [place] [facility] (Prevnar7) Branch DTAP 2002 Completed University of 00:00:00 [facility] HIB 4 Dose Schedule 2002 Completed Unive rsity of 00:00:00 [facility] HIB 4 Dose Schedule 2002 Completed Unive rsity of 00:00:00 [facility] Polio (IPV/OPV) 2002 Completed Universit y of 00:00:00 [facility] Pneumococcal 7 2002 Completed University of Conjugate, PCV7 00:00:00 [place] [facility] (Prevnar7) Branch DTAP 2002 Completed University of 00:00:00 [facility] HIB 4 Dose Schedule 2002 Completed Unive rsity of 00:00:00 [facility] Polio (IPV/OPV) 2002 Completed Universit y of 00:00:00 [facility] Pneumococcal 7 2002 Completed University of Conjugate, PCV7 00:00:00 [place] [facility] (Prevnar7) Branch Polio (IPV/OPV) 2002 Completed Universit y of 00:00:00 [facility] Pneumococcal 7 2002 Completed University of Conjugate, PCV7 00:00:00 [place] [facility] (Prevnar7) Branch DTAP 2002 Completed University of 00:00:00 [facility] HIB 4 Dose Schedule 2002 Completed Unive rsity of 00:00:00 [facility] Polio (IPV/OPV) 2002 Completed Universit y of 00:00:00 [facility] Pneumococcal 7 2002 Completed University of Conjugate, PCV7 00:00:00 [place] [facility] (Prevnar7) Branch DTAP 2002 Completed University of 00:00:00 [place] [facility] Hep B, Adol or Pedi 2002 Completed Unive rsity of Dosage 00:00:00 [place] [facility] Hep B, Adol or Pedi 2002 Completed Unive rsity of Dosage 00:00:00 [place] [facility] Hep B, Adol or Pedi 2002 Completed Unive rsity of Dosage 00:00:00 [place] [facility] Hep B, Adol or Pedi 2002 Completed Unive rsity of Dosage 00:00:00 [facility] Hep B, Adol or Pedi 2002 Completed Unive rsity of Dosage 00:00:00 [place] [facility] Hep B, Adol or Pedi 2002 Completed Unive rsity of Dosage 00:00:00 [place] [facility] Hep B, Adol or Pedi 2002 Completed Unive rsity of Dosage 00:00:00 [place] [facility] Hep B, Adol or Pedi 2002 Completed Unive rsity of Dosage 00:00:00 [place] [facility] Hep B, Adol or Pedi 2002 Completed Unive rsity of Dosage 00:00:00 [place] [facility] Hep B, Adol or Pedi 2002 Completed Unive rsity of Dosage 00:00:00 [place] [facility] Hep B, Adol or Pedi 2002 Completed Unive rsity of Dosage 00:00:00 [place] [facility] Hep B, Adol or Pedi 2002 Completed Unive rsity of Dosage 00:00:00 [place] [facility] Hep B, Adol or Pedi 2002 Completed Unive rsity of Dosage 00:00:00 [place] [facility] Hep B, Adol or Pedi 2002 Completed Unive rsity of Dosage 00:00:00 [facility] Vital Signs Vital Name Observation Time Observation Value Comments Source Systolic blood 2020-05-09 20:05:00 95 mm[Hg] Univer sity of pressure [facility] Diastolic blood 2020-05-09 20:05:00 65 mm[Hg] Unive rsity of pressure [facility] Heart rate 2020-05-09 20:05:00 82 /min [facility] Body temperature 2020-05-09 20:05:00 36.78 Trupti [facility] Respiratory rate 2020-05-09 20:05:00 16 /min [facility] Body height 2020-05-09 20:05:00 162.6 cm [facility] Body weight 2020-05-09 20:05:00 52.249 kg [facility] BMI 2020-05-09 20:05:00 19.77 kg/m2 [facility] BP Systolic 2022-08-23 16:50:00 106 mm[Hg] BP Diastolic 2022-08-23 16:50:00 74 mm[Hg] Weight Measured 2022-08-23 16:50:00 147.40 pounds Height Measured 2022-08-23 16:50:00 64.54 inches Body Temperature 2022-08-23 16:50:00 98.20 degrees Heart Rate 2022-08-23 16:50:00 78.00 /min Respiratory Rate 2022-08-23 16:50:00 18.00 /min BP Systolic 2022-08-16 14:20:00 120 mm[Hg] BP [...] Date / Time Performing Clinician Source Performed [id number] 2022-04-07 00:00:00 [facility] [id number] 2022-04-07 00:00:00 [facility]BA [facility] REFERRAL- 2022-02-09 05:01:00 Doctor Unassigned, No [facility] REQUEST/RESPONSE Name Medical Branch US FIRST 2021-09-06 19:50:00 Elizabeth Li [facility] TRIMESTER LESS THAN 14 Medical B ranch WEEKS WITH TRANSVAGINAL ASSIGNMENT OF BENEFITS 2021-09-06 18:56:20 Doctor Unassigned, No [facility] AUTHORIZATION TO RELEASE 2020-05-19 05:01:00 Doctor Unassigned, No [facility] PHI TO [facility] POCT TEST 2020-05-09 21:11:00 Carmen Goss [facility] MENACTRA (MCV4-D) 2020-05-09 20:35:02 Carmen Goss [facility] VACCINE Medical Branch GARDASIL 9 (HPV 9V) 2020-05-09 20:35:02 Carmen Goss [facility] VACCINE Medical Branch MENINGOCOCCAL B VACCINE, 2020-05-09 20:35:02 Carmen Goss [facility] OMV, 2 DOSE, IM Medical Branch NOTICE OF PRIVACY 2020-05-09 19:45:15 Doctor Unassigned, No [facility] Medical Yulan Plan of Care Planned Activity Planned Date Details Comments Source Goal Plan of Care Note [code = 37181-0] Goal Plan of Care Note [code = 41052-4] Goal Plan of Care Note [code = 12583-1] Goal Plan of Care Note [code = 71879-3] Goal Plan of Care Note [code = 50322-6] Goal Plan of Care Note [code = 52787-8] Goal Plan of Care Note [code = 90099-3] Goal Plan of Care Note [code = 20957-0] Goal Plan of Care Note [code = 32159-7] Goal Plan of Care Note [code = 68564-2] Goal Plan of Care Note [code = 43472-3] Goal Plan of Care Note [code = 92561-4] Goal Plan of Care Note [code = 05247-9] Goal Plan of Care Note [code = 17164-5] Goal Plan of Care Note [code = 99440-5] Goal Plan of Care Note [code = 96107-2] Goal Plan of Care Note [code = 19723-1] Goal Plan of Care Note [code = 75776-5] Goal Plan of Care Note [code = 03007-4] Goal Plan of Care Note [code = 97043-2] Goal Plan of Care Note [code = 66982-5] Goal Plan of Care Note [code = 38596-4] Goal Plan of Care Note [code = 18971-5] Goal Plan of Care Note [code = 87254-2] Goal Plan of Care Note [code = 26924-0] Goal Plan of Care Note [code = 87100-3] Goal Plan of Care Note [code = 93047-9] Goal Plan of Care Note [code = 55097-5] Goal Plan of Care Note [code = 24562-1] Goal Plan of Care Note [code = 15549-3] Goal Plan of Care Note [code = 90795-3] Goal Plan of Care Note [code = 79260-2] Goal Plan of Care Note [code = 89523-1] Goal Plan of Care Note [code = 71114-8] Goal Plan of Care Note [code = 10417-8] Goal Plan of Care Note [code = 33856-3] Goal Plan of Care Note [code = 27965-5] Goal Plan of Care Note [code = 33246-8] Goal Plan of Care Note [code = 88707-3] Goal Plan of Care Note [code = 49214-2] Goal Plan of Care Note [code = 96849-3] Goal Plan of Care Note [code = 57992-3] Goal Plan of Care Note [code = 68334-7] Goal Plan of Care Note [code = 88908-9] Goal Plan of Care Note [code = 70816-2] Goal Plan of Care Note [code = 82885-1] Goal Plan of Care Note [code = 24438-0] Goal Plan of Care Note [code = 71402-1] Goal Plan of Care Note [code = 44006-0] Goal Plan of Care Note [code = 85517-5] Goal Plan of Care Note [code = 66221-9] Goal Plan of Care Note [code = 93641-7] Goal Plan of Care Note [code = 71027-8] Goal Plan of Care Note [code = 78178-0] Goal Plan of Care Note [code = 98948-8] Goal Plan of Care Note [code = 53070-0] Goal Plan of Care Note [code = 92656-8] Goal Plan of Care Note [code = 69705-1] Goal Plan of Care Note [code = 81861-0] Goal Plan of Care Note [code = 69671-4] Goal Plan of Care Note [code = 08679-1] Goal Plan of Care Note [code = 79902-4] Goal Plan of Care Note [code = 15444-4] Goal Plan of Care Note [code = 74218-7] Goal Plan of Care Note [code = 59758-4] Goal Plan of Care Note [code = 64038-7] Goal Plan of Care Note [code = 27908-5] Goal Plan of Care Note [code = 10849-8] Goal Plan of Care Note [code = 84201-2] Goal Plan of Care Note [code = 30979-7] Goal Plan of Care Note [code = 25889-0] Goal Plan of Care Note [code = 74276-9] Goal Plan of Care Note [code = 88833-3] Goal Plan of Care Note [code = 37278-8] Goal Plan of Care Note [code = 27800-7] Encounters Start End Encounter Admission Attending Care Care Encounter Source Date/Time Date/Time Type Type Clinicians Facility Department ID 2022-09-03 2022-09-03 Outpatient R RADIOLOGY [facility] [id number] Univers 15:58:30 15:58:30 [facility]ly [facility] 2022-08-29 2022-08-29 Outpatient R RADIOLOGY [facility] [id number] Univers 17:00:00 17:00:00 [facility] 2022-08-23 2022-08-23 Outpatient [facility] [id number] Guzman 16:34:17 16:34:[address] 2022-08-23 2022-08-23 Outpatient [id number] 00:00:00 00:00:00 Visit [id number] -[id number]-r14 [id number] 2022-08-16 2022-08-16 Outpatient [id number] e4 605x3q-m 00:00:00 00:00:00 Visit tr4c-4d39 g4d-3g43-a -bbf0-e08 bf0-e085b8 9n1p705w5 b292e8 2022-04-06 2022-04-09 Inpatient EL Maximos, HCACL OBPP [id number] [facility] 16:16:00 19:28:00 James [id number] [facility] 2022-04-06 2022-04-09 Inpatient EL Maximos, HCACL OBPP [id number] [facility] 16:16:00 19:28:00 James 06 [facility] 2022-04-02 2022-04-03 Emergency EM Maximos, HCACL ARNAV [id number] [facility] 20:56:00 00:05:00 James 59 [facility] 2022-04-02 2022-04-02 Emergency EM Maximos, HCACL ARNAV [id number] [facility] 20:56:00 20:56:00 James [id number] [facility] 2022-02-09 2022-02-09 Orders Doctor CONSTANCE 1.2.840.114 [id number] Univers 00:00:00 00:00:00 Only Unassigned, RODERICK 350.1.13.10 ity of [facility] 4.2.7.[address] [place] [address] [id number] [facility] 009 Branch 2021-09-06 2021-09-06 Outpatient R KAROLINA [facility] [id number] Univers 13:00:52 23:59:00 ELIZABETH lino of [facility] 2021-09-06 2021-09-06 [facility] 1.2.840.114 [id number] Univers 13:00:00 23:59:00 Encounter Elizabeth CHOPRA 350.1.13.10 ity [facility] 4.2.7.2.686 [facility] [id number] [facility] 806 Branch 2021-09-06 2021-09-06 Orders Doctor CONSTANCE 1.2.840.114 [id number] Univers 00:00:00 00:00:00 Only Unassigned, RODERICK 350.1.13.10 ity of [facility] 4.2.7.2.686 Solitario as [id number] [address] 2020-06-22 2020-06-22 Outpatient R [facility] [id number] Univers 15:30:00 15:30:00 ity [facility] 2020-05-19 2020-05-19 Orders Doctor CONSTANCE 1.2.840.114 [id number] Univers 00:00:00 00:00:00 Only Unassigned, RODERICK 350.1.13.10 ity of [facility] 4.2.7.2.686 Solitario as [phone] [address] 2020-05-16 2020-05-16 Telephone [facility] 1.2.840.114 [id number] Univers 00:00:00 00:00:00 Carmen Mark FURNACE LOADER 350.1.13.10 it y of REGIONAL 4.2.7.2.686 Solitario as MATERNAL [id number] [facility] ical & CHILD [address] [place] [address] 2020-05-09 2020-05-09 Office [facility] 1.2.171.674 [id number] Univers 14:52:09 16:10:47 Visit Carmen Mark FURNACE LOADER 350.1.13.10 it y of REGIONAL 4.2.7.2.686 Solitario as MATERNAL [id number] [facility] & [address] 2020-05-09 2020-05-09 [facility] [id number] Univers 14:30:00 14:30:00 CARMEN lino [facility] 2020-05-09 2020-05-09 Orders Doctor CONSTANCE 1.2.840.114 [id number] Univers 00:00:00 00:00:00 Only Unassigned, RODERICK 350.1.13.10 ity of [facility] 4.2.7.2.686 Solitario as [phone] [address] 2020-05-06 2020-05-06 [facility] [id number] Univers 13:45:00 13:45:00 CARMEN lino [facility] Results Test Description Test Time Test Comments Results Result Comments Source VAGINAL PATHOGENS DNA PANEL 2022-08-25 00:00:00 Test Item Value Reference Range Interpretation Comme nts JACKSON SPECIES (test code = ) POSITIVE G. VAGINALIS (test code = ) NEGATIVE T. VAGINALIS (test code = ) NEGATIVE VAGINAL PATHOGENS DNA [id number] 00:00:00 Test Item Value Reference Range Interpretation Comments JACKSON SPECIES (test code = ) POSITIVE G. VAGINALIS (test code = ) NEGATIVE T. VAGINALIS (test code = 21155) NEGATIVE [id number] 15:34:00 Test Item Value Reference Range Interpretation Comments SURGICAL (test code = SR) R UN DATE: 04/12/22 [place] - LAB PAGE 1 RUN TIME: 1534 Specimen Inquiry RUN USER: INTERFACE Santhosh ATIENT: ANDER ARAIZA LOC: G.3WS U #: [id number] AGE/SX: 21/F ROOM: [facility] RE04/06/22REG DR: James Parker MD : 02 BED: 1 DIS: 04/09/22 STATUS: DIS IN TLOC: SPEC #: [id number] RECD: 04/09/22 STATUS: ANAYA DUARTE #: [id number] FÁTIMA: 04/07/22- SUBM DR: James Parker MD ENTERED: 04/09/22 SP TYPE: SURGICAL OTHR DR: ORDERED: [id number], ANATOMIC SPEC PROCEDURES: 71188 (04/09/22) TISSUES: A. PLACENTA, THIRD TRIMESTER (28 + WEEKS) CLINICAL HISTORY SAME - DELVIERED FINAL DIAGNOSIS Placenta, 40.1-week: Histologically mature edwards placenta (692 g, greater than 90thpercentile for gestational age), meconium, acute subchorionitis. GROSS DESCRIPTION Received in formalin labeled placenta is a 692 g 15 x 15 x 3 cm placenta. The fetalsurface is bluegray with light green staining and winding vessels on the surface. Thematernal surface is intact with adherent hemorrhage. The membranes are thin andtranslucent with some light green staining. The eccentrically inserted three-vesselumbilical cord measures 36 cm in length 1 cm in diameter. The parenchyma is beefy redwithout identified lesions. Submitted (A) membranes (B) umbilical cord (C)-(E) parenchyma. Technical component performed at [address], [place] [address] Unless gross only, the diagnosis is based upon microscopic examination.Immunohistochemistr y: This test was developed and its performance characteristicsdetermined by this laboratory. It has not been approved nor does it need approvalby the [place] FDA. Appropriate positive and negative controls are reviewed and judgedto be acceptable. This laboratory is certified under the Clinical Laboratory ImprovementAmendments (CLIA-88) as qualified to perform high complexity clinical laboratory testing. MICROSCOPIC DESCRIPTION Sections of the umbilical cord reveal three vessels without significant inflammation. Thefetal membranes are unremarkable. The surface shows acute inflammation of thesubchorionic space (maternal inflammatory response stage I grade 1). Maturation isappropriate for gestational age. The underlying maternal decidua beneath the placentacontains a mixed inflammatory infiltrate. CONTINUED ON NEXT PAGE R UN DATE: 04/12/22 [place] - LAB PAGE 2 RUN TIME: 1534 Specimen Inquiry RUN USER: INTERFACE S THEA #: [id number] PATIENT: ARAIZAANDER Lora #[id number] (Continued) CLINICAL INFORMATION , 40.1 RAMIN --- Signed SIGNATURE ON FILE El Albright DO 04/12/22 1534 END OF REPORT CORD ARTERIAL BLOOD [id number] 10:47:00 Test Item Value Reference Range Interpretation [...] code = JOSE J/C) mmol/L CBC W/AUTO [id number] 04:56:00 Test Item Value Reference Range Interpretation [...] code NO = MDIFF) CORD VENOUS BLOOD [id number] 11:30:00 Test Item Value Reference Range Interpretation [...] = 60 % O2SCV) CORD ARTERIAL BLOOD [id number] 11:30:00 Test Item Value Reference Range Interpretation [...] O2S/C) 57 % 72-77 L RAPID PLASMA [id number] 10:57:00 Test Item Value Reference Range Interpretation Comments RAPID PLASMA REAGIN (test code = NONREACTIVE NONREACTIVE RPR) AG HEPATITIS B [id number] 10:57:00 Test Item Value Reference Range Interpretation Comments AG HEPATITIS B SURFACE NON REACTIVE INDEX NonReactive (test code = HBSAG) AB HIV 1 10:57:00 Test Item Value Reference Range Interpretation Comments AB HIV 1 2 (test code = BXB87KX) Nonreactive Nonreactive CBC W/AUTO [id number] 00:01:00 Test Item Value Reference Range Interpretation [...] code NO = MDIFF) Coronavirus 2019 nCoV [id number] 19:52:00 Test Item Value Reference Range Interpretation Comments Coronavirus 2019 POSITIVE Negative A nCoV Bedside (test --------- -----The [employer] ID code = NOW utilizes is othermal [id number]) [place] Enzyme Amplification Reaction (NEAR) technology in [...] assay. Negative result s do not preclude RZRM-JaW-9felbc tion and should not be u sed as the sole basis forp atient management deci sions. Negative result s should beconsidered in the context of a patient's recent exposures,histo ry, presence of clinical sig ns and symptoms consis tentwith COVID-19. URINALYSIS [id number] 22:34:00 Test Item Value Reference Range Interpretation [...] MUCU) TRACE /LPF NONE SEEN - US [id number] 00:00:00 [facility]IZ[facility] : 2000 Sex: F Name: ANDER ARAIZA [facility] [place] Hartley : 2000 Age/S: 21 / F [address] [place] [address] Unit #: [id number] Loc: [place] [address] Phys: James Parker MD Acct: [id number] Dis Date: Status: REG ER PHONE #: [phone] Exam Date: 04/02/20222231 FAX #: [phone] Reason: SEE BPP EXAMS: CPT CODE: [id number] [place] LTD 46349 PROCEDURE INFORMATION: Exam: US , Limited Exam date and time:04/02/2022 10:17 PM Age: 21 years old Clinical indication: status abnormalities: ; movements, decreased; Single gestation; Third trimester (=28 weeks 0 days); Lmp or gestational age (in weeks): 39; Antepartum complications; Decreased movements; Fetus 1; ; Additional info: Dfm,covid + TECHNIQUE: Imaging protocol: Real-time ultrasound of [...] Cervix measures 3.4 cm in length appearing partiallyobscured. Both ovaries are obscured by overlying gas. PROCEDURE INFORMATION: Exam: US Biophysical Profile Without Non-Stress Test Exam date and time: 04/02/2022 10:17 PM Age: 21 years old Clinical indication: status abnormalities: ; movements, decreased; Single gestation; Third trimester (=28 weeks 0 days); Lmp or gestational age (in weeks): 39; Antepartum co mplications; Decreased movements; Fetus 1; ; Additional info: Dfm, covid + TECHNIQUE: Imaging protocol: US biophysical profile without non-stress testing. COMPARISON: No relevant prior studies available. FINDINGS: BIOPHYSICAL PROFILE: breathing movement (BPP): 2 out of 2. body movement (BPP): 2 out of 2. tone (BPP): 2 out of 2. Amniotic fluid (BPP): 2 out of 2. IMPRESSION: PAGE 1 Signed Report (CONTINUED) Name: ANDER ARAIZA [facility] [place] : 2000 Age/S: 21 / F [address] [place] [address] Bl Unit #: [id number] Loc: [place] [address] Phys: James Parker MD Acct: [id number] Dis Date: Status: REG ER PHONE #: [phone] Exam Date: 2231 FAX #: [phone] Reason: SEE BPP EXAMS: CPT CODE: [id number] US LTD 20821(Continued) US , Limited Single live intrauterine . US Biophysical Profile Without Non-Stress Test Biophysical profile score is 8 out of 8. at 2244 Reported and signed by: Timmy Bush M.D. CC: Technologist: Nathalia Alcantara RDMS(AB)(OB) Trnscb Date/Time: 04/02/2022 (2243) t.SDR.SG9 Orig Print D/T: S: 04/02/2022 (2243) Probe: PAGE 2 Signed Report- US BIOPHYS [id number] 00:00:00 [facility] SANDY LAMONTName: ANDER ARAIZA : 2000 Sex: F Name: ANDER ARAIZA [facility] : 2000 Age/S: 21 / F [address] [place] [address] Unit #: [id number] Loc: BRIAN Chan [address] Phys: James Parker MD Acct: [id number] Dis Date: Status: REG ER PHONE #: [phone] Exam Date: 04/02/20222231 FAX #: [phone] Reason: DFM, COVID + EXAMS: CPT CODE: [id number] US BIOPHYS PROF [id number] PROCEDURE INFORMATION: Exam: US , Limited Exam dateand time: 04/02/2022 10:17 PM Age: 21 years old Clinical indication: status abnormalities: ; movements, decreased; Single gestation; Third trimester (=28 weeks 0 days); Lmp or gestational age (in weeks): 39; Antepartum complications; Decreased movements; Fetus 1; ; Additional info: Dfm, covid + TECHNIQUE: Imaging protocol: Real-time ultrasound [...] Without Non-Stress Test Exam date and time: 0:17 PM Age: 21 years old Clinical indication: [...] 1 Signed Report (CONTINUED) Name: ANDER ARAIZA [facility] [place] : 2000 Age/S: 21 / F [address] [place] [address] Blvd Unit #: [id number] Loc: [place] [address] Phys: James Parker MD Acct: [id number] Dis Date: Status: REG ER PHONE #: [phone] Exam Date: 04/02/20222231 FAX #: [phone] Reason: DFM, COVID + EXAMS: CPT CODE: [id number] US FETALBIOPHYS PROF 71500 (Continued) US , Limited Single live intrauterine . US Biophysical Profile Without Non-Stress Test Biophysical profile score is 8 out of 8. ElectronicallySigned by Lupe Bush on 04/02/2022 at 2244 Reported and signed by: Timmy Bush M.D. CC: Technologist: Nathalia Alcantara RDMS(AB)(OB) Trnscb Date/Time: 04/02/2022 (2243) MichaelSG9 Orig Print D/T: S: 04/02/2022 (2243) Probe: PAGE 2 Signed ReportCULTURE, [id number] 09:16:49 SPECIMEN NUMBER: [id number] CULTURE, URINE SPECIMEN NUMBER: [id number] SPECIMEN COMMENT: URINE SOURCE:URINE REPORT STATUS: FINAL FINAL REPORT: 03/12/2022 >100,000 CFU/ML UROGENITAL SCOUT PRESENT NO COMMON PATHOGENS UNLESS OTHERWISE INDICATED, ALL TESTING PERFORMED [facility] [address] [place] [address] [employer]URE W[employer]ER AUTOMOTIVE: XAVIER LOTT M.D. CLIA NUMBER [id number] [place]. [id number], [id number] 00:00:00 Test Item Value Reference Range Interpretation Comments CULTURE, URINE (test SPECIMEN NUMBER: code = 03667) [id number] CULTURE, [id number] 00:00:00 Test Item Value Reference Range Interpretation Comments CULTURE, URINE (test SPECIMEN NUMBER: code = 20089) [id number] CULTURE, [id number] 00:00:00 Test Item Value Reference Range Interpretation Comments CULTURE, URINE (test SPECIMEN NUMBER: code = 55995) [id number] CULTURE, [id number] 00:00:00 Test Item Value Reference Range Interpretation Comments CULTURE, URINE (test SPECIMEN NUMBER: code = 74362) [id number] CULTURE, STREP B - [id number] 15:19:52SPECIMEN NUMBER: [id number] CULTURE, STREP B - SPECIMEN NUMBER: [id number] SPECIMEN COMMENT:GBS SOURCE: VAGINA REPORT STATUS: FINAL ISOLATE NUMBER 1: IDENTIFICATION: 03/04/2022 BETA STREPTOCOCCUS GROUP B ISOLATED CULTURE, [id number] 11:58:57SPECIMEN NUMBER: [id number] CULTURE, URINE SPECIMEN NUMBER: [id number] SPECIMEN COMMENT: URINE SOURCE:URINE REPORT STATUS: FINAL FINAL REPORT: 03/04/2022 >100,000 CFU/ML UROGENITAL SCOUT PRESENT NO COMMON PATHOGENS CULTURE, STREP B - [id number] 00:00:00 Test Item Value Reference Range Interpretation Comments CULTURE, STREP B - SPECIMEN NUMBER: (test code = [id number] 22873) CULTURE, STREP B - [id number] 00:00:00 Test Item Value Reference Range Interpretation Comments CULTURE, STREP B - SPECIMEN NUMBER: (test code = [id number] 25944) CULTURE, [id number] 00:00:00 Test Item Value Reference Range Interpretation Comments CULTURE, URINE (test SPECIMEN NUMBER: code = 27737) [id number] CULTURE, [id number] 00:00:00 Test Item Value Reference Range Interpretation Comments CULTURE, URINE (test SPECIMEN NUMBER: code = 50211) [id number] CULTURE, STREP B - [id number] 00:00:00 Test Item Value Reference Range Interpretation Comments CULTURE, STREP B - SPECIMEN NUMBER: (test code = [id number] 87620) CULTURE, STREP B - [id number] 00:00:00 Test Item Value Reference Range Interpretation Comments CULTURE, STREP B - SPECIMEN NUMBER: (test code = [id number] 25437) CULTURE, [id number] 00:00:00 Test Item Value Reference Range Interpretation Comments CULTURE, URINE (test SPECIMEN NUMBER: code = 15695) [id number] CULTURE, [id number] 00:00:00 Test Item Value Reference Range Interpretation Comments CULTURE, URINE (test SPECIMEN NUMBER: code = 92589) [id number] VAGINAL PATHOGENS DNA [id number] 13:34:40 Test Item Value Reference Range Interpretation Comments JACKSON SPECIES (test code = ) NEGATIVE NEGATIVE G. VAGINALIS (test code = ) NEGATIVE NEGATIVE T. VAGINALIS (test code = ) NEGATIVE NEGATIVE CBC W/AUTO DIFF WITH [id number] 03:14:44 Test Item Value Reference Range Interpretation [...] message] code = 1065) WBC'S The system [employer] generated this result transmitted ref erence range: [...] 0.00-0.11 UNLESS O THERWISE (test code = 11062) INDICATE D, ALL TESTING PERFORM ED ATCL[facility]ICAL PATH [facility], [facility]. [address] [place] [address] [facility] DIRECTOR: XAVIER LOTT M.D. CLIA NUMBER [id number] CAP ACCREDITATION N O. [id number] CBC W/AUTO [id number] 00:00:00 Test Item Value Reference Range Interpretation [...] NUCLEATED RBCS (test code = 0.00 K/UL 59368) CBC W/AUTO [id number] 00:00:00 Test Item Value Reference Range Interpretation [...] NUCLEATED RBCS (test code = 0.00 K/UL 18165) CBC W/AUTO [id number] 00:00:00 Test Item Value Reference Range Interpretation [...] NUCLEATED RBCS (test code = 0.00 K/UL 68314) VAGINAL PATHOGENS DNA [id number] 00:00:00 Test Item Value Reference Range Interpretation Comments JACKSON SPECIES (test code = ) NEGATIVE G. VAGINALIS (test code = 69896) NEGATIVE T. VAGINALIS (test code = 42966) NEGATIVE VAGINAL PATHOGENS DNA [id number] 00:00:00 Test Item Value Reference Range Interpretation Comments JACKSON SPECIES (test code = ) NEGATIVE G. VAGINALIS (test code = 69016) NEGATIVE T. VAGINALIS (test code = 03587) NEGATIVE CBC W/AUTO [id number] 00:00:00 Test Item Value Reference Range Interpretation [...] NUCLEATED RBCS (test code = 0.00 K/UL 69240) CBC W/AUTO [id number] 00:00:00 Test Item Value Reference Range Interpretation [...] NUCLEATED RBCS (test code = 0.00 K/UL 40612) CBC W/AUTO [id number] 00:00:00 Test Item Value Reference Range Interpretation [...] NUCLEATED RBCS (test code = 0.00 K/UL 84483) VAGINAL PATHOGENS DNA [id number] 00:00:00 Test Item Value Reference Range Interpretation Comments JACKSON SPECIES (test code = ) NEGATIVE G. VAGINALIS (test code = 04350) NEGATIVE T. VAGINALIS (test code = 35032) NEGATIVE VAGINAL PATHOGENS DNA [id number] 00:00:00 Test Item Value Reference Range Interpretation Comments JACKSON SPECIES (test code = ) NEGATIVE G. VAGINALIS (test code = 19774) NEGATIVE T. VAGINALIS (test code = 19929) NEGATIVE CT/NG, NAAT, [id number] 10:58:26 Test Item Value Reference Range Interpretation Comments GONORRHEA, NAAT NEGATIVE NEGATIVE IMPORTA NT NOTICE: SEE (test code = [place] [address]) [email or web address].[facility] [employer] Note: Assay methodology is nucleic acid amplification b y information coder mediated amplification ( TMA) utilizing the A ptima Combo 2 Assay. CHLAMYDIA, NAAT NEGATIVE NEGATIVE IMPORTA NT NOTICE: SEE (test code = [place] [address]) [email or web address].[facility] [employer] Note: Assay methodology is nucleic acid amplification b y information coder m ediated amplification ( TMA) utilizing the A ptima Combo 2 Assay. UNLESS OTHERWISE INDICATED, ALL TESTING PERFORMED [facility] PATHOLOGY LABOR [facility] [address] [place] [address] DIRECTOR: XAVIER LOTT M.D. CLIA NUMBER [id number] CAP ACCREDITATION N O. [id number] CULTURE, [id number] 10:18:22SPECIMEN NUMBER: [id number] CULTURE, URINE SPECIMEN NUMBER: [id number] SPECIMEN COMMENT: URINE SOURCE:URINE REPORT STATUS: FINAL FINAL REPORT: 02/11/2022 50-100,000 CFU/ML UROGENITAL SCOUT PRESENT NO COM MON PATHOGENSGC AND CHLAMYDIA, AMPLIFIED, [id number] 00:00:00 Test Item Value Reference Range Interpretation Comments GONORRHEA, NAAT (test code = 27199) NEGATIVE CHLAMYDIA, NAAT (test code = 05950) NEGATIVE CULTURE, [id number] 00:00:00 Test Item Value Reference Range Interpretation Comments CULTURE, URINE (test SPECIMEN NUMBER: code = 65984) [id number] CULTURE, [id number] 00:00:00 Test Item Value Reference Range Interpretation Comments CULTURE, URINE (test SPECIMEN NUMBER: code = 61406) [id number] GC AND CHLAMYDIA, AMPLIFIED, [id number] 00:00:00 Test Item Value Reference Range Interpretation Comments GONORRHEA, NAAT (test code = 35042) NEGATIVE CHLAMYDIA, NAAT (test code = 35095) NEGATIVE GC AND CHLAMYDIA, AMPLIFIED, [id number] 00:00:00 Test Item Value Reference Range Interpretation Comments GONORRHEA, NAAT (test code = 09961) NEGATIVE CHLAMYDIA, NAAT (test code = 23963) NEGATIVE CULTURE, [id number] 00:00:00 Test Item Value Reference Range Interpretation Comments CULTURE, URINE (test SPECIMEN NUMBER: code = 22020) [id number] CULTURE, [id number] 00:00:00 Test Item Value Reference Range Interpretation Comments CULTURE, URINE (test SPECIMEN NUMBER: code = 79453) [id number] GC AND CHLAMYDIA, AMPLIFIED, [id number] 00:00:00 Test Item Value Reference Range Interpretation Comments GONORRHEA, NAAT (test code = 95236) NEGATIVE CHLAMYDIA, NAAT (test code = 45897) NEGATIVE [id number] 04:36:16 Test Item Value Reference Range Interpretation Comments RPR RESULT (test code = NON-REACTIVE NON-REACTIVE 3501) RPR TITER (test code = 3500) NOT INDIC. TITER NOT INDIC. HIV 1/2 4TH GEN, RFLX [id number] 03:35:30 Test Item Value Reference Range Interpretation Comments HIV 1/2 4TH GEN, RFLX CONF (test NON-REACTIVE NON-REACTIVE code = 3514) HIV AB/AG COMBO RFLX [id number] 00:00:00 Test Item Value Reference Range Interpretation Comments HIV 1/2 4TH GEN, RFLX CONF (test NON-REACTIVE code = 3514) HIV AB/AG COMBO RFLX [id number] 00:00:00 Test Item Value Reference Range Interpretation Comments HIV 1/2 4TH GEN, RFLX CONF (test NON-REACTIVE code = 3514) [id number] 00:00:00 Test Item Value Reference Range Interpretation Comments RPR RESULT (test code = NON-REACTIVE 3501) RPR TITER (test code = 3500) NOT INDIC. TITER [id number] 00:00:00 Test Item Value Reference Range Interpretation Comments RPR RESULT (test code = NON-REACTIVE 3501) RPR TITER (test code = 3500) NOT INDIC. TITER [id number] 00:00:00 Test Item Value Reference Range Interpretation Comments RPR RESULT (test code = NON-REACTIVE 3501) RPR TITER (test code = 3500) NOT INDIC. TITER HIV AB/AG COMBO RFLX [id number] 00:00:00 Test Item Value Reference Range Interpretation Comments HIV 1/2 4TH GEN, RFLX CONF (test NON-REACTIVE code = 3514) HIV AB/AG COMBO RFLX [id number] 00:00:00 Test Item Value Reference Range Interpretation Comments HIV 1/2 4TH GEN, RFLX CONF (test NON-REACTIVE code = 3514) [id number] 00:00:00 Test Item Value Reference Range Interpretation Comments RPR RESULT (test code = NON-REACTIVE 3501) RPR TITER (test code = 3500) NOT INDIC. TITER [id number] 00:00:00 Test Item Value Reference Range Interpretation Comments RPR RESULT (test code = NON-REACTIVE 3501) RPR TITER (test code = 3500) NOT INDIC. TITER [id number] 00:00:00 Test Item Value Reference Range Interpretation Comments RPR RESULT (test code = NON-REACTIVE 3501) RPR TITER (test code = 3500) NOT INDIC. TITER CBC W/AUTO DIFF WITH [id number] 04:20:36 Test Item Value Reference Range Interpretation [...] RBCS 0.00 K/UL 0.00-0.11 (test code = 24523) GLUCOSE, 1 HR, GESTATIONAL SCREEN, 50 GM [id number] 03:15:28 Test Item Value Reference Range Interpretation Comments GLUCOSE 1 HR POST 118 MG/DL <140 UNLESS OT HERWISE 50 GM (test code = INDICATED , ALL TESTING 2005) PERFORMED [facility] N[facility] PATHOLOGY FORMERLY [facility]. [address] [place], [place] [id number] [place] [address] DIRECTOR: XAVIER LOTT M.D. CLIA NUMBER [id number] CAP ACCREDITATION N O. [id number] CBC W/AUTO [id number] 00:00:00 Test Item Value Reference Range Interpretation [...] NUCLEATED RBCS (test code = 0.00 K/UL 97267) CBC W/AUTO [id number] 00:00:00 Test Item Value Reference Range Interpretation [...] NUCLEATED RBCS (test code = 0.00 K/UL 02342) CBC W/AUTO [id number] 00:00:00 Test Item Value Reference Range Interpretation [...] NUCLEATED RBCS (test code = 0.00 K/UL 75825) GLUCOSE, 1 HR, GESTATIONAL SCREEN, 50 GM [id number] 00:00:00 Test Item Value Reference Range Interpretation Comments GLUCOSE 1 HR POST 50 GM (test code 118 MG/DL = 2005) GLUCOSE, 1 HR, GESTATIONAL SCREEN, 50 GM [id number] 00:00:00 Test Item Value Reference Range Interpretation Comments GLUCOSE 1 HR POST 50 GM (test code 118 MG/DL = 2005) GLUCOSE, 1 HR, GESTATIONAL SCREEN, 50 GM [id number] 00:00:00 Test Item Value Reference Range Interpretation Comments GLUCOSE 1 HR POST 50 GM (test code 118 MG/DL = 2005) CBC W/AUTO [id number] 00:00:00 Test Item Value Reference Range Interpretation [...] NUCLEATED RBCS (test code = 0.00 K/UL 34645) CBC W/AUTO [id number] 00:00:00 Test Item Value Reference Range Interpretation [...] NUCLEATED RBCS (test code = 0.00 K/UL 06165) CBC W/AUTO [id number] 00:00:00 Test Item Value Reference Range Interpretation [...] NUCLEATED RBCS (test code = 0.00 K/UL 09117) GLUCOSE, 1 HR, GESTATIONAL SCREEN, 50 GM [id number] 00:00:00 Test Item Value Reference Range Interpretation Comments GLUCOSE 1 HR POST 50 GM (test code 118 MG/DL = 2005) GLUCOSE, 1 HR, GESTATIONAL SCREEN, 50 GM [id number] 00:00:00 Test Item Value Reference Range Interpretation Comments GLUCOSE 1 HR POST 50 GM (test code 118 MG/DL = 2005) GLUCOSE, 1 HR, GESTATIONAL SCREEN, 50 GM [id number] 00:00:00 Test Item Value Reference Range Interpretation Comments GLUCOSE 1 HR POST 50 GM (test code 118 MG/DL = 2005) CULTURE, [id number] 08:19:53NORMAL CULTURE, URINE SPECIMEN NUMBER: [id number] SPECIMEN COMMENT: URINE SOURCE: URINE REPORT STATUS: FINAL FINAL REPORT: 11/23/2021 >100,000 CFU/ML UROGENITAL SCOUT PRESENT NO COMMON PATHOGENS UNLESS OTHERWISE INDICATED, ALL TESTING PERFORMED ATCLIN[facility] PATHOLOG[facility] [address] [place] [address] [employer]URE W[employer]ER [employer]OMOTIVE: XAVIER LOTT M.D. CLIA NUMBER [id number] [facility]. [id number], [id number] 00:00:00 Test Item Value Reference Range Interpretation Comments CULTURE, URINE (test code = 46959) NORMAL CULTURE, [id number] 00:00:00 Test Item Value Reference Range Interpretation Comments CULTURE, URINE (test code = 49759) NORMAL CULTURE, [id number] 00:00:00 Test Item Value Reference Range Interpretation Comments CULTURE, URINE (test code = 57670) NORMAL CULTURE, [id number] 00:00:00 Test Item Value Reference Range Interpretation Comments CULTURE, URINE (test code = 90692) NORMAL CULTURE, [id number] 11:48:43SPECIMEN NUMBER: [id number] CULTURE, URINE SPECIMEN NUMBER: [id number] SPECIMEN COMMENT: URINE SOURCE:URINE REPORT STATUS: FINAL FINAL REPORT: 10/25/2021 50-100,000 CFU/ML UROGENITAL SCOUT PRESENT NO CO MMON PATHOGENS PRELIMINARY REPORT: 10/24/2021 NO GROWTH AFTER 12 HOURSCULTURE, [id number] 00:00:00 Test Item Value Reference Range Interpretation Comments CULTURE, URINE (test SPECIMEN NUMBER: code = 38453) [id number] CULTURE, [id number] 00:00:00 Test Item Value Reference Range Interpretation Comments CULTURE, URINE (test SPECIMEN NUMBER: code = 84171) [id number] CULTURE, [id number] 00:00:00 Test Item Value Reference Range Interpretation Comments CULTURE, URINE (test SPECIMEN NUMBER: code = 29247) [id number] CULTURE, [id number] 00:00:00 Test Item Value Reference Range Interpretation Comments CULTURE, URINE (test SPECIMEN NUMBER: code = 23139) [id number] MATERNAL AFP FOR NTD [id number] 14:15:08 Test Item Value Reference Range Interpretation Comments INTERPRETATION (test SCREEN NEGATIVE code = 209482) Neural tube defect 1:7935 risk (test code = 82552) Neural tube defect (NOTE) --- NORM AL - NOT interpretation (test AT INCR EASED RISK code = 54051) --- The AFP results indicat e a [...] = 2657) INITIAL/REPEAT (test INITIAL code = 827548) FAMILY HISTORY OF NTD NO (test code = 516355) INSULIN DEP. DIABETIC NO (test code = 2659) RACE (test code = 2658) SMOKER? (test code = YES 934637) NUMBER OF GESTATIONS 1 (test code = 04569) GESTATIONAL AGE (test 16.4 WEEKS code = 2656) DETERMINED BY: (test US code = 2654) DATE OF SONOGRAM 09/06/2021 (test code = 83525) GESTATIONAL AGE AT 9.7 WEEKS SONO (test code = 2653) ADJUST AFP M.O.M. 1.136 M.O.M. (test code = 2661) AFP (test 50.6 NG/ML code = 08427) VAGINAL PATHOGENS DNA [id number] 13:11:15 Test Item Value Reference Range Interpretation Comments JACKSON SPECIES (test POSITIVE NEGATIVE A code = ) G. VAGINALIS (test NEGATIVE NEGATIVE code = 44765) T. VAGINALIS (test NEGATIVE NEGATIVE UNLESS O THERWISE code = 94364) INDICATED, ALL TESTING PERFORMED [facility] [address] [place] [address] 4 LABORATORY DIRE CTOR: XAVIER BAILON M.D. CLIA NUMBER [id number] [facility]. [id number] MATERNAL AFP FOR NTD [id number] 00:00:00 Test Item Value Reference Range Interpretation Comments INTERPRETATION (test code = SCREEN NEGATIVE 594725) Neural tube defect risk (test 1:7935 code = 18285) Neural tube defect (NOTE) interpretation (test code = 33172) DATE OF (test code = 2000 2660) MATERNAL WEIGHT (test code = 111 LBS 2657) INITIAL/REPEAT (test code = INITIAL 965281) FAMILY HISTORY OF NTD (test NO code = 468553) INSULIN DEP. DIABETIC (test NO code = 2659) RACE (test code = 2658) SMOKER? (test code = 502470) YES NUMBER OF GESTATIONS (test 1 code = 40764) GESTATIONAL AGE (test code = 16.4 WEEKS 2656) DETERMINED BY: (test code = 2654) DATE OF SONOGRAM (test code = 09/06/2021 72850) GESTATIONAL AGE AT SONO (test 9.7 WEEKS code = 2653) ADJUST AFP M.O.M. (test code 1.136 M.O.M. = 2661) AFP (test code = 50.6 NG/ML 01054) MATERNAL AFP FOR NTD [id number] 00:00:00 Test Item Value Reference Range Interpretation Comments INTERPRETATION (test code = SCREEN NEGATIVE 821959) Neural tube defect risk (test 1:7935 code = 00196) Neural tube defect (NOTE) interpretation (test code = 87962) DATE OF (test code = 2000 2660) MATERNAL WEIGHT (test code = 111 LBS 2657) INITIAL/REPEAT (test code = INITIAL 315958) FAMILY HISTORY OF NTD (test NO code = 758804) INSULIN DEP. DIABETIC (test NO code = 2659) RACE (test code = 2658) SMOKER? (test code = 500966) YES NUMBER OF GESTATIONS (test 1 code = 96391) GESTATIONAL AGE (test code = 16.4 WEEKS 2656) DETERMINED BY: (test code = US 2654) DATE OF SONOGRAM (test code = 09/06/2021 91212) GESTATIONAL AGE AT SONO (test 9.7 WEEKS code = 2653) ADJUST AFP M.O.M. (test code 1.136 M.O.M. = 2661) AFP (test code = 50.6 NG/ML 25380) MATERNAL AFP FOR NTD [id number] 00:00:00 Test Item Value Reference Range Interpretation Comments INTERPRETATION (test code = SCREEN NEGATIVE 756862) Neural tube defect risk (test 1:7935 code = 04424) Neural tube defect (NOTE) interpretation (test code = 19095) DATE OF (test code = 2000 2660) MATERNAL WEIGHT (test code = 111 LBS 2657) INITIAL/REPEAT (test code = INITIAL 333778) FAMILY HISTORY OF NTD (test NO code = 522559) INSULIN DEP. DIABETIC (test NO code = 2659) RACE (test code = 2658) SMOKER? (test code = 923558) YES NUMBER OF GESTATIONS (test 1 code = 69932) GESTATIONAL AGE (test code = 16.4 WEEKS 2656) DETERMINED BY: (test code = US 2654) DATE OF SONOGRAM (test code = 09/06/2021 55767) GESTATIONAL AGE AT SONO (test 9.7 WEEKS code = 2653) ADJUST AFP M.O.M. (test code 1.136 M.O.M. = 2661) AFP (test code = 50.6 NG/ML 54311) VAGINAL PATHOGENS DNA [id number] 00:00:00 Test Item Value Reference Range Interpretation Comments JACKSON SPECIES (test code = 97899) POSITIVE G. VAGINALIS (test code = 37611) NEGATIVE T. VAGINALIS (test code = 61024) NEGATIVE VAGINAL PATHOGENS DNA [id number] 00:00:00 Test Item Value Reference Range Interpretation Comments JACKSON SPECIES (test code = 91614) POSITIVE G. VAGINALIS (test code = 05984) NEGATIVE T. VAGINALIS (test code = 64094) NEGATIVE MATERNAL AFP FOR NTD [id number] 00:00:00 Test Item Value Reference Range Interpretation Comments INTERPRETATION (test code = SCREEN NEGATIVE 434393) Neural tube defect risk (test 1:7935 code = 68370) Neural tube defect (NOTE) interpretation (test code = 77561) DATE OF (test code = 2000 2660) MATERNAL WEIGHT (test code = 111 LBS 2657) INITIAL/REPEAT (test code = INITIAL 889750) FAMILY HISTORY OF NTD (test NO code = 839814) INSULIN DEP. DIABETIC (test NO code = 2659) RACE (test code = 2658) SMOKER? (test code = 663743) YES NUMBER OF GESTATIONS (test 1 code = 26140) GESTATIONAL AGE (test code = 16.4 WEEKS 2656) DETERMINED BY: (test code = US 2654) DATE OF SONOGRAM (test code = 09/06/2021 87487) GESTATIONAL AGE AT SONO (test 9.7 WEEKS code = 2653) ADJUST AFP M.O.M. (test code 1.136 M.O.M. = 2661) AFP (test code = 50.6 NG/ML 87553) MATERNAL AFP FOR NTD [id number] 00:00:00 Test Item Value Reference Range Interpretation Comments INTERPRETATION (test code = SCREEN NEGATIVE 191936) Neural tube defect risk (test 1:7935 code = 95245) Neural tube defect (NOTE) interpretation (test code = 89197) DATE OF (test code = 2000 2660) MATERNAL WEIGHT (test code = 111 LBS 2657) INITIAL/REPEAT (test code = INITIAL 384764) FAMILY HISTORY OF NTD (test NO code = 772337) INSULIN DEP. DIABETIC (test NO code = 2659) RACE (test code = 2658) SMOKER? (test code = 122473) YES NUMBER OF GESTATIONS (test 1 code = 72927) GESTATIONAL AGE (test code = 16.4 WEEKS 2656) DETERMINED BY: (test code = US 2654) DATE OF SONOGRAM (test code = 09/06/2021 05267) GESTATIONAL AGE AT SONO (test 9.7 WEEKS code = 2653) ADJUST AFP M.O.M. (test code 1.136 M.O.M. = 2661) AFP (test code = 50.6 NG/ML 04999) MATERNAL AFP FOR NTD [id number] 00:00:00 Test Item Value Reference Range Interpretation Comments INTERPRETATION (test code = SCREEN NEGATIVE 818064) Neural tube defect risk (test 1:7935 code = 66912) Neural tube defect (NOTE) interpretation (test code = 40624) DATE OF (test code = 2000 2660) MATERNAL WEIGHT (test code = 111 LBS 2657) INITIAL/REPEAT (test code = INITIAL 102337) FAMILY HISTORY OF NTD (test NO code = 403160) INSULIN DEP. DIABETIC (test NO code = 2659) RACE (test code = 2658) SMOKER? (test code = 285925) YES NUMBER OF GESTATIONS (test 1 code = 14997) GESTATIONAL AGE (test code = 16.4 WEEKS 2656) DETERMINED BY: (test code = 2654) DATE OF SONOGRAM (test code = 09/06/2021 76817) GESTATIONAL AGE AT SONO (test 9.7 WEEKS code = 2653) ADJUST AFP M.O.M. (test code 1.136 M.O.M. = 2661) AFP (test code = 50.6 NG/ML 83126) VAGINAL PATHOGENS DNA [id number] 00:00:00 Test Item Value Reference Range Interpretation Comments JACKSON SPECIES (test code = ) POSITIVE G. VAGINALIS (test code = 20232) NEGATIVE T. VAGINALIS (test code = 82251) NEGATIVE VAGINAL PATHOGENS DNA [id number] 00:00:00 Test Item Value Reference Range Interpretation Comments JACKSON SPECIES (test code = 00342) POSITIVE G. VAGINALIS (test code = 86866) NEGATIVE T. VAGINALIS (test code = 83000) NEGATIVE COMPREHENSIVE METABOLIC [id number] 00:00:00 Test Item Value Reference Range Interpretation Comments GLUCOSE (test code = 2217) 74 MG/DL BUN (test code = 2208) 4 MG/DL CREATININE (test code = 2214) 0.42 MG/DL eGFR AMER. (test code 172 ML/MIN/1.73 = 04549) eGFR NON- AMER. (test 149 ML/MIN/1.73 code = 08247) CALC BUN/CREAT (test code = 10 RATIO [...] A/G RATIO (test code = 1.7 RATIO 2234) BILIRUBIN, TOTAL (test code = 0.8 MG/DL 2206) ALKALINE PHOSPHATASE (test 61 U/L code = 2204) AST (test code = 2218) 15 U/L ALT (test code = 2219) 12 U/L COMPREHENSIVE METABOLIC [id number] 00:00:00 Test Item Value Reference Range Interpretation Comments GLUCOSE (test code = 2217) 74 MG/DL BUN (test code = 2208) 4 MG/DL CREATININE (test code = 2214) 0.42 MG/DL eGFR AMER. (test code 172 ML/MIN/1.73 = 22056) eGFR NON- AMER. (test 149 ML/MIN/1.73 code = 43023) CALC BUN/CREAT (test code = 10 RATIO [...] A/G RATIO (test code = 1.7 RATIO 2234) BILIRUBIN, TOTAL (test code = 0.8 MG/DL 2206) ALKALINE PHOSPHATASE (test 61 U/L code = 2204) AST (test code = 2218) 15 U/L ALT (test code = 2219) 12 U/L COMPREHENSIVE METABOLIC [id number] 00:00:00 Test Item Value Reference Range Interpretation Comments GLUCOSE (test code = 2217) 74 MG/DL BUN (test code = 2208) 4 MG/DL CREATININE (test code = 2214) 0.42 MG/DL eGFR AMER. (test code 172 ML/MIN/1.73 = 16933) eGFR NON- AMER. (test 149 ML/MIN/1.73 code = 84128) CALC BUN/CREAT (test code = 10 RATIO 2235) SODIUM (test code = 2231) 136 MEQ/L POTASSIUM (test code = 2228) 4.0 MEQ/L CHLORIDE (test code = 2215) 101 MEQ/L CARBON DIOXIDE (test code = 23 MEQ/L 220) CALCIUM (test code = 2209) 10.1 MG/DL PROTEIN, TOTAL (test code = 7.4 G/DL 2228) ALBUMIN (test code = 2201) 4.7 G/DL CALC GLOBULIN (test code = 2.7 G/DL 2240) CALC A/G RATIO (test code = 1.7 RATIO 2234) BILIRUBIN, TOTAL (test code = 0.8 MG/DL 2206) ALKALINE PHOSPHATASE (test 61 U/L code = 2204) AST (test code = 2218) 15 U/L ALT (test code = 2219) 12 U/L COMPREHENSIVE METABOLIC [id number] 00:00:00 Test Item Value Reference Range Interpretation Comments GLUCOSE (test code = 2217) 74 MG/DL BUN (test code = 2208) 4 MG/DL CREATININE (test code = 2214) 0.42 MG/DL eGFR AMER. (test code 172 ML/MIN/1.73 = 93498) eGFR NON- AMER. (test 149 ML/MIN/1.73 code = 57902) CALC BUN/CREAT (test code = 10 RATIO 2235) SODIUM (test code = 2231) 136 MEQ/L POTASSIUM (test code = 2228) 4.0 MEQ/L CHLORIDE (test code = 2215) 101 MEQ/L CARBON DIOXIDE (test code = 23 MEQ/L 2206) CALCIUM (test code = 2209) 10.1 MG/DL PROTEIN, TOTAL (test code = 7.4 G/DL 2228) ALBUMIN (test code = 2201) 4.7 G/DL CALC GLOBULIN (test code = 2.7 G/DL 2240) CALC A/G RATIO (test code = 1.7 RATIO 2234) BILIRUBIN, TOTAL (test code = 0.8 MG/DL 2206) ALKALINE PHOSPHATASE (test 61 U/L code = 2204) AST (test code = 2218) 15 U/L ALT (test code = 2219) 12 U/L CULTURE, [id number] 00:00:00 Test Item Value Reference Range Interpretation Comments CULTURE, URINE (test SPECIMEN NUMBER: code = 18888) [id number] CULTURE, [id number] 00:00:00 Test Item Value Reference Range Interpretation Comments CULTURE, URINE (test SPECIMEN NUMBER: code = 15014) [id number] CULTURE, [id number] 00:00:00 Test Item Value Reference Range Interpretation Comments CULTURE, URINE (test SPECIMEN NUMBER: code = 82675) [id number] CULTURE, [id number] 00:00:00 Test Item Value Reference Range Interpretation Comments CULTURE, URINE (test SPECIMEN NUMBER: code = 54981) [id number] VAGINAL PATHOGENS DNA PANEL [ADDED]2021-08-30 00:00:00 Test Item Value Reference Range Interpretation Comments JACKSON SPECIES (test code = ) NEGATIVE G. VAGINALIS (test code = 94143) NEGATIVE T. VAGINALIS (test code = 14905) NEGATIVE HEPATITIS A [id number] 00:00:00 Test Item Value Reference Range Interpretation Comments HEPATITIS A IgM (test code = NON-REACTIVE 02709) HEPATITIS A [id number] 00:00:00 Test Item Value Reference Range Interpretation Comments HEPATITIS A IgM (test code = NON-REACTIVE 38138) HEPATITIS A [id number] 00:00:00 Test Item Value Reference Range Interpretation Comments HEPATITIS A IgM (test code = NON-REACTIVE 09944) VAGINAL PATHOGENS DNA PANEL [ADDED]2021-08-30 00:00:00 Test Item Value Reference Range Interpretation Comments JACKSON SPECIES (test code = 09861) NEGATIVE G. VAGINALIS (test code = 69515) NEGATIVE T. VAGINALIS (test code = 94667) NEGATIVE VAGINAL PATHOGENS DNA PANEL [ADDED]2021-08-30 00:00:00 Test Item Value Reference Range Interpretation Comments JACKSON SPECIES (test code = 18838) NEGATIVE G. VAGINALIS (test code = 30713) NEGATIVE T. VAGINALIS (test code = 05179) NEGATIVE HEPATITIS A [id number] 00:00:00 Test Item Value Reference Range Interpretation Comments HEPATITIS A IgM (test code = NON-REACTIVE 31318) HEPATITIS A [id number] 00:00:00 Test Item Value Reference Range Interpretation Comments HEPATITIS A IgM (test code = NON-REACTIVE 65318) HEPATITIS A [id number] 00:00:00 Test Item Value Reference Range Interpretation Comments HEPATITIS A IgM (test code = NON-REACTIVE 38774) VAGINAL PATHOGENS DNA PANEL [ADDED]2021-08-30 00:00:00 Test Item Value Reference Range Interpretation Comments JACKSON SPECIES (test code = ) NEGATIVE G. VAGINALIS (test code = ) NEGATIVE T. VAGINALIS (test code = ) NEGATIVE CULTURE, [id number] 00:00:00 Test Item Value Reference Range Interpretation Comments CULTURE, URINE (test SPECIMEN NUMBER: code = 68797) [id number] CULTURE, [id number] 00:00:00 Test Item Value Reference Range Interpretation Comments CULTURE, URINE (test SPECIMEN NUMBER: code = 11898) [id number] THC METABOLITE, QUANT, URINE [REFLEX]2021-08-04 00:00:00 Test Item Value Reference Range Interpretation Comments CARBOXY-THC INTERP (test code = Positive 48349) CARBOXY-THC QNT (test code = 12153) 425 ng/mL THC METABOLITE, QUANT, URINE [REFLEX]2021-08-04 00:00:00 Test Item Value Reference Range Interpretation Comments CARBOXY-THC INTERP (test code = Positive 66311) CARBOXY-THC QNT (test code = 35349) 425 ng/mL CULTURE, [id number] 00:00:00 Test Item Value Reference Range Interpretation Comments CULTURE, URINE (test SPECIMEN NUMBER: code = 57052) [id number] CULTURE, [id number] 00:00:00 Test Item Value Reference Range Interpretation Comments CULTURE, URINE (test SPECIMEN NUMBER: code = 65515) [id number] THC METABOLITE, QUANT, URINE [REFLEX]2021-08-04 00:00:00 Test Item Value Reference Range Interpretation Comments CARBOXY-THC INTERP (test code = Positive 74421) CARBOXY-THC QNT (test code = 49384) 425 ng/mL THC METABOLITE, QUANT, URINE [REFLEX]2021-08-04 00:00:00 Test Item Value Reference Range Interpretation Comments CARBOXY-THC INTERP (test code = Positive 48708) CARBOXY-THC QNT (test code = 64073) 425 ng/mL VARICELLA ZOSTER [id number] 00:00:00 Test Item Value Reference Range Interpretation Comments VARICELLA ZOSTER IgG (test code = 177 INDEX 90614) DRUG ABUSE PANEL 10 WITH [id number] 00:00:00 Test Item Value Reference Range Interpretation Comments AMPHETAMINES (test code = NEGATIVE 3201) BARBITURATES (test code = NEGATIVE 3202) BENZODIAZEPINES (test code NEGATIVE = 3203) CANNABINOIDS (test code = SEE REFLEX TESTING 3204) COCAINE METABOLITE (test NEGATIVE code = 3205) OPIATES (test code = 3209) NEGATIVE OXYCODONE (test code = NEGATIVE 51939) PHENCYCLIDINE (test code = NEGATIVE 3210) METHADONE (test code = NEGATIVE 3207) BUPRENORPHINE (test code = NEGATIVE 54941) DRUG ABUSE PANEL 10 WITH [id number] 00:00:00 Test Item Value Reference Range Interpretation Comments AMPHETAMINES (test code = NEGATIVE 3201) BARBITURATES (test code = NEGATIVE 3202) BENZODIAZEPINES (test code NEGATIVE = 3203) CANNABINOIDS (test code = SEE REFLEX TESTING 3204) COCAINE METABOLITE (test NEGATIVE code = 3205) OPIATES (test code = 3209) NEGATIVE OXYCODONE (test code = NEGATIVE 61365) PHENCYCLIDINE (test code = NEGATIVE 3210) METHADONE (test code = NEGATIVE 3207) BUPRENORPHINE (test code = NEGATIVE 69052) GC AND CHLAMYDIA, AMPLIFIED, [id number] 00:00:00 Test Item Value Reference Range Interpretation Comments GONORRHEA, NAAT (test code = 75825) NEGATIVE CHLAMYDIA, NAAT (test code = 61064) NEGATIVE GC AND CHLAMYDIA, AMPLIFIED, [id number] 00:00:00 Test Item Value Reference Range Interpretation Comments GONORRHEA, NAAT (test code = 90993) NEGATIVE CHLAMYDIA, NAAT (test code = 48721) NEGATIVE COMPREHENSIVE METABOLIC PANEL [ADDED]2021-08-03 00:00:00 Test Item Value Reference Range Interpretation Comments GLUCOSE (test code = 2217) 94 MG/DL BUN (test code = 2208) 6 MG/DL CREATININE (test code = 2214) 0.69 MG/DL eGFR AMER. (test code 146 ML/MIN/1.73 = 81997) eGFR NON- AMER. (test 126 ML/MIN/1.73 code = 05604) CALC BUN/CREAT (test code = 9 RATIO 2235) SODIUM (test code = 2231) 140 MEQ/L POTASSIUM (test code = 2228) 3.9 MEQ/L CHLORIDE (test code = 2215) 103 MEQ/L CARBON DIOXIDE (test code = 20 MEQ/L 220) CALCIUM (test code = 2209) 10.1 MG/DL PROTEIN, TOTAL (test code = 7.7 G/DL 222) ALBUMIN (test code = 2201) 5.0 G/DL [...] eGFR AMER. (test code 146 ML/MIN/1.73 = 06645) eGFR NON- AMER. (test 126 ML/MIN/1.73 code = 00680) CALC BUN/CREAT (test code = 9 RATIO 2235) SODIUM (test code = 2231) 140 MEQ/L POTASSIUM (test code = 2228) 3.9 MEQ/L CHLORIDE (test code = 2215) 103 MEQ/L CARBON DIOXIDE (test code = 20 MEQ/L 2205) CALCIUM (test code = 2209) 10.1 MG/DL PROTEIN, TOTAL (test code = 7.7 G/DL 2228) ALBUMIN (test code = 2201) 5.0 G/DL CALC GLOBULIN (test code = 2.7 G/DL 2240) CALC A/G RATIO (test code = 1.9 RATIO 2234) BILIRUBIN, TOTAL (test code = 1.5 MG/DL 7) ALKALINE PHOSPHATASE (test 69 U/L code = 2204) AST (test code = 2218) 13 U/L ALT (test code = 2219) 5 U/L OBSTETRIC PANEL + [id number] 00:00:00 Test Item Value Reference Range Interpretation [...] NUCLEATED RBCS (test 0.00 K/UL code = 99378) BLOOD TYPE AND RH (test code O POSITIVE = 3901) ANTIBODY SCREEN (test code = NEGATIVE 3902) RUBELLA ANTIBODY SCREEN 186 IU/ML (test code = 4600) RUBELLA IgG INTERP (test REACTIVE code = 44826) HEPATITIS B SURF AG (test NON-REACTIVE code = 2739) RPR (test code = 50246) NON-REACTIVE RPR TITER (test code = 3500) NOT INDIC. TITER HIV 1/2 4TH GEN, RFLX CONF NON-REACTIVE (test code = 3514) OBSTETRIC PANEL + [id number] 00:00:00 Test Item Value Reference Range Interpretation [...] NUCLEATED RBCS (test 0.00 K/UL code = 30307) BLOOD TYPE AND RH (test code O POSITIVE = 3901) ANTIBODY SCREEN (test code = NEGATIVE 3902) RUBELLA ANTIBODY SCREEN 186 IU/ML (test code = 4600) RUBELLA IgG INTERP (test REACTIVE code = 68997) HEPATITIS B SURF AG (test NON-REACTIVE code = 2739) RPR (test code = 20371) NON-REACTIVE RPR TITER (test code = 3500) NOT INDIC. TITER HIV 1/2 4TH GEN, RFLX CONF NON-REACTIVE (test code = 3514) OBSTETRIC PANEL + [id number] 00:00:00 Test Item Value Reference Range Interpretation [...] NUCLEATED RBCS (test 0.00 K/UL code = 17023) BLOOD TYPE AND RH (test code O POSITIVE = 3901) ANTIBODY SCREEN (test code = NEGATIVE 3902) RUBELLA ANTIBODY SCREEN 186 IU/ML (test code = 4600) RUBELLA IgG INTERP (test REACTIVE code = 56358) HEPATITIS B SURF AG (test NON-REACTIVE code = 2739) RPR (test code = 02104) NON-REACTIVE RPR TITER (test code = 3500) NOT INDIC. TITER HIV 1/2 4TH GEN, RFLX CONF NON-REACTIVE (test code = 3514) HEPATITIS C REFLEX [id number] 00:00:00 Test Item Value Reference Range Interpretation Comments HEPATITIS C ANTIBODY (test code NON-REACTIVE = 4675) HEPATITIS C REFLEX [id number] 00:00:00 Test Item Value Reference Range Interpretation Comments HEPATITIS C ANTIBODY (test code NON-REACTIVE = 4675) VARICELLA ZOSTER [id number] 00:00:00 Test Item Value Reference Range Interpretation Comments VARICELLA ZOSTER IgG (test code = 177 INDEX 43006) VARICELLA ZOSTER [id number] 00:00:00 Test Item Value Reference Range Interpretation Comments VARICELLA ZOSTER IgG (test code = 177 INDEX 16081) DRUG ABUSE PANEL 10 WITH [id number] 00:00:00 Test Item Value Reference Range Interpretation Comments AMPHETAMINES (test code = NEGATIVE 3201) BARBITURATES (test code = NEGATIVE 3202) BENZODIAZEPINES (test code NEGATIVE = 3203) CANNABINOIDS (test code = SEE REFLEX TESTING 3204) COCAINE METABOLITE (test NEGATIVE code = 3205) OPIATES (test code = 3209) NEGATIVE OXYCODONE (test code = NEGATIVE 33546) PHENCYCLIDINE (test code = NEGATIVE 3210) METHADONE (test code = NEGATIVE 3207) BUPRENORPHINE (test code = NEGATIVE 64415) DRUG ABUSE PANEL 10 WITH [id number] 00:00:00 Test Item Value Reference Range Interpretation Comments AMPHETAMINES (test code = NEGATIVE 3201) BARBITURATES (test code = NEGATIVE 3202) BENZODIAZEPINES (test code NEGATIVE = 3203) CANNABINOIDS (test code = SEE REFLEX TESTING 3204) COCAINE METABOLITE (test NEGATIVE code = 3205) OPIATES (test code = 3209) NEGATIVE OXYCODONE (test code = NEGATIVE 59185) PHENCYCLIDINE (test code = NEGATIVE 3210) METHADONE (test code = NEGATIVE 3207) BUPRENORPHINE (test code = NEGATIVE 72313) GC AND CHLAMYDIA, AMPLIFIED, [id number] 00:00:00 Test Item Value Reference Range Interpretation Comments GONORRHEA, NAAT (test code = 42548) NEGATIVE CHLAMYDIA, NAAT (test code = 35181) NEGATIVE GC AND CHLAMYDIA, AMPLIFIED, [id number] 00:00:00 Test Item Value Reference Range Interpretation Comments GONORRHEA, NAAT (test code = 10000) NEGATIVE CHLAMYDIA, NAAT (test code = 67438) NEGATIVE COMPREHENSIVE METABOLIC PANEL [ADDED]2021-08-03 00:00:00 Test Item Value Reference Range Interpretation Comments GLUCOSE (test code = 2217) 94 MG/DL BUN (test code = 2208) 6 MG/DL CREATININE (test code = 2214) 0.69 MG/DL eGFR AMER. (test code 146 ML/MIN/1.73 = 83160) eGFR NON- AMER. (test 126 ML/MIN/1.73 code = 87946) CALC BUN/CREAT (test code = 9 RATIO 2235) SODIUM (test code = 2231) 140 MEQ/L POTASSIUM (test code = 2228) 3.9 MEQ/L CHLORIDE (test code = 2215) 103 MEQ/L CARBON DIOXIDE (test code = 20 MEQ/L 2205) CALCIUM (test code = 2209) 10.1 MG/DL PROTEIN, TOTAL (test code = 7.7 G/DL 222) ALBUMIN (test code = 2201) 5.0 G/DL CALC GLOBULIN (test code = 2.7 G/DL 2240) CALC A/G RATIO (test code = 1.9 RATIO 2234) BILIRUBIN, TOTAL (test code = 1.5 MG/DL 220) ALKALINE PHOSPHATASE (test 69 U/L code = 2204) AST (test code = 2218) 13 U/L ALT (test code = 2219) 5 U/L COMPREHENSIVE METABOLIC PANEL [ADDED]2021-08-03 00:00:00 Test Item Value Reference Range Interpretation Comments GLUCOSE (test code = 2217) 94 MG/DL BUN (test code = 2208) 6 MG/DL CREATININE (test code = 2214) 0.69 MG/DL eGFR AMER. (test code 146 ML/MIN/1.73 = 42055) eGFR NON- AMER. (test 126 ML/MIN/1.73 code = 34940) CALC BUN/CREAT (test code = 9 RATIO 2235) SODIUM (test code = 2231) 140 MEQ/L POTASSIUM (test code = 2228) 3.9 MEQ/L CHLORIDE (test code = 2215) 103 MEQ/L CARBON DIOXIDE (test code = 20 MEQ/L 2205) CALCIUM (test code = 2209) 10.1 MG/DL PROTEIN, TOTAL (test code = 7.7 G/DL 2228) ALBUMIN (test code = 2201) 5.0 G/DL CALC GLOBULIN (test code = 2.7 G/DL 2240) CALC A/G RATIO (test code = 1.9 RATIO 2234) BILIRUBIN, TOTAL (test code = 1.5 MG/DL 2207) ALKALINE PHOSPHATASE (test 69 U/L code = 2204) AST (test code = 2218) 13 U/L ALT (test code = 2219) 5 U/L OBSTETRIC PANEL + [id number] 00:00:00 Test Item Value Reference Range Interpretation [...] NUCLEATED RBCS (test 0.00 K/UL code = 63727) BLOOD TYPE AND RH (test code O POSITIVE = 3901) ANTIBODY SCREEN (test code = NEGATIVE 3902) RUBELLA ANTIBODY SCREEN 186 IU/ML (test code = 4600) RUBELLA IgG INTERP (test REACTIVE code = 73965) HEPATITIS B SURF AG (test NON-REACTIVE code = 2739) RPR (test code = 10291) NON-REACTIVE RPR TITER (test code = 3500) NOT INDIC. TITER HIV 1/2 4TH GEN, RFLX CONF NON-REACTIVE (test code = 3514) OBSTETRIC PANEL + [id number] 00:00:00 Test Item Value Reference Range Interpretation [...] NUCLEATED RBCS (test 0.00 K/UL code = 55265) BLOOD TYPE AND RH (test code O POSITIVE = 3901) ANTIBODY SCREEN (test code = NEGATIVE 3902) RUBELLA ANTIBODY SCREEN 186 IU/ML (test code = 4600) RUBELLA IgG INTERP (test REACTIVE code = 03695) HEPATITIS B SURF AG (test NON-REACTIVE code = 2739) RPR (test code = 31280) NON-REACTIVE RPR TITER (test code = 3500) NOT INDIC. TITER HIV 1/2 4TH GEN, RFLX CONF NON-REACTIVE (test code = 3514) OBSTETRIC PANEL + [id number] 00:00:00 Test Item Value Reference Range Interpretation [...] NUCLEATED RBCS (test 0.00 K/UL code = 60476) BLOOD TYPE AND RH (test code O POSITIVE = 3901) ANTIBODY SCREEN (test code = NEGATIVE 3902) RUBELLA ANTIBODY SCREEN 186 IU/ML (test code = 4600) RUBELLA IgG INTERP (test REACTIVE code = 71026) HEPATITIS B SURF AG (test NON-REACTIVE code = 2739) RPR (test code = 07109) NON-REACTIVE RPR TITER (test code = 3500) NOT INDIC. TITER HIV 1/2 4TH GEN, RFLX CONF NON-REACTIVE (test code = 3514) HEPATITIS C REFLEX [id number] 00:00:00 Test Item Value Reference Range Interpretation Comments HEPATITIS C ANTIBODY (test code NON-REACTIVE = 4675) HEPATITIS C REFLEX [id number] 00:00:00 Test Item Value Reference Range Interpretation Comments HEPATITIS C ANTIBODY (test code NON-REACTIVE = 4675) VARICELLA ZOSTER [id number] 00:00:00 Test Item Value Reference Range Interpretation Comments VARICELLA ZOSTER IgG (test code = 177 INDEX 65985) POCT [id number] 21:11:00 Test Item Value Reference Range Interpretation Comments POCT PREG (test code = 1605) Negative On board controls acceptable with C Yes Line (test code = 3574) POCT PREG LOT # (test code = 3575) [facility] TEST DATE (test code = 3576) [id number] 21:11:00 Test Item Value Reference Range Interpretation Comments POCT PREG (test code = 1605) Negative On board controls acceptable with C Yes Line (test code = 3574) POCT PREG LOT # (test code = 3575) POCT PREG TEST DATE (test code = 3576) [facility]
[2022-09-03] MEDS ORDERED: NA CHLORIDE 0.9% 1,000 ML ONE (22:13)
--- NOTE | 2022-09-03 22:17 | RAD REPORT ---
EXAM DESCRIPTION: US - Transvaginal OB - 09/03/2022 10:09 pm CLINICAL HISTORY: ABD CRAMPING, COMPARISON: No comparisons FINDINGS: A single gestational sac is seen within the uterus. The shape of the sac is within normal limits for gestational age. Within the sac is a 6 mm yolk sac. Vague embryo possibly noted measuring 4 mm. No cardiac activity seen at this time. The maternal adnexa and ovaries are within normal limits. Normal Doppler blood flow was demonstrated to both ovaries. IMPRESSION: Single intrauterine yolk sac noted which is mildly enlarged measuring 6 mm. A small poss ibly embryo detected measuring 4 mm without cardiac activity seen at this time. Recommend close inter madeline follow-up pelvic sonogram in 7-10 days serial HCG levels.
[2022-09-03 22:41] LABS: Urine Blood 3+ (Negative); Urine Glucose Negative (Negative); Urine Protein Negative (Negative); Urine Specific Gravity 1.025 (1.005-1.030); Urine pH 7.5 (5.0-7.0)
[2022-09-03 22:55] LABS: Absolute Lymphocytes (CBC) 1.7 K/uL (0.7-4.9); Hematocrit 40.6 % (36.0-45.0); Lymphocytes % 21.9 % (15.3-44.8); MCV 89.4 fL (80-100); MPV 8.7 fL (7.6-11.3); RBC Red Blood Cell Count 4.54 M/uL (3.86-4.86)
[2022-09-03 23:08] LABS: Potassium 3.9 mmol/L (3.5-5.1)
[2022-09-03 23:14] LABS: Urine Specific Gravity/Preg 1.025 (1.005-1.030)
--- NOTE | 2022-09-03 23:35 | ER ---
Nurse's Notes [facility] Name: Anabel Frye Age: 22 yrs Sex: Female : 2000 Arrival Date: 09/03/2022 Time: 21:18 Bed 26 Private MD: Diagnosis: Threatened ;Missed Presentation: 09/03 21:23 Chief complaint: Patient states: started spotting yesterday and then stopped, and has jh5 been on and off throughout today but this afternoon has gotten heavier; second and didn't have this during my first . I did have a transvaginal ultrasound today, which was very painful and I dont remember any ultrasound being painful in my last . Coronavirus screen: Vaccine status: Patient reports being unvaccinated. Client denies travel out of the [place] in the last 14 days. Ebola Screen: Patient negative for fever greater than or equal to 101.5 degrees Fahrenheit, and additional compatible Ebola Virus Disease symptoms Patient denies exposure to infectious person. Patient denies travel to an Ebola-affected area in the 21 days before illness onset. Initial Sepsis Screen: Does the patient meet any 2 criteria? No. Patient's initial sepsis screen is negative. Does the patient have a suspected source of infection? No. Patient's initial sepsis screen is negative. Risk Assessment: Do you want to hurt yourself or someone else? Patient reports no desire to harm self or others. 21:23 Method Of Arrival: Ambulatory [facility] 21:23 Acuity: NAZANIN 3 5 Triage Assessment: 21:30 General: Appears uncomfortable, slender, well groomed, well developed, Behavior is 5 calm, cooperative, appropriate for age. Pain: Complains of pain in abdomen. : Reports vaginal bleeding that is bright red, moderate flow, spotty. 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 - Social history:: Smoking status: Patient denies any tobacco usage or history of. - Family history:: not pertinent. Screenin:46 Abuse screen: Denies threats or abuse. Denies injuries from another. Nutritional tp1 screening: No deficits noted. Tuberculosis screening: No symptoms or risk factors identified. Fall Risk None identified. 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 tp1 22:15 General: Appears in no apparent distress. comfortable, Behavior is calm, cooperative. tp1 Pain: Denies pain. Neuro: Level of Consciousness is awake, alert, obeys commands, Oriented to person, place, time, situation. Cardiovascular: Patient's skin is warm and dry. Respiratory: Airway is patent Respiratory effort is even, unlabored. GI: No signs and/or symptoms were reported involving the gastrointestinal system. : Reports cramping, vaginal bleeding that is bright red, with clots, light flow. EENT: No signs and/or symptoms were reported regarding the EENT system. Derm: Skin is pink, warm \T\ dry. Musculoskeletal: Circulation, motion, and sensation intact. 23:34 Reassessment: No changes from previously documented assessment. Patient and/or family vc1 updated on plan of care and expected duration. Pain level reassessed. Patient is alert, oriented x 3, equal unlabored respirations, skin warm/dry/pink. Vital Signs: 21:23 BP 109 / 68; Pulse 81; Resp 18; Temp 97.6; Pulse Ox 98% ; Weight 65.77 kg; Height 5 ft. 5 4 in. (162.56 cm); Pain 5/10; 22:49 BP 97 / 80; Pulse 69; Resp 16; Pulse Ox 100% on R/A; tp1 21:23 Body Mass Index 24.89 (65.77 kg, 162.56 cm) [facility] ED Course: 21:18 Patient arrived in ED. jj6 21:22 Munir Chavez MD is Attending Physician. [facility] 21:30 Triage completed. [facility] 21:30 Arm band placed on right wrist. [facility] 21:48 Gudelia Malin, MARKUS is Primary Nurse. tp1 22:11 US Transvaginal Ob In Process Unspecified. EDMS 22:15 Patient has correct armband on for positive identification. Bed in low position. Call tp1 light in reach. Adult w/ patient. Pulse ox on. NIBP on. 22:30 Inserted saline lock: 20 gauge in right antecubital area, using aseptic technique. tp1 Blood collected. 22:30 No provider procedures requiring assistance completed. tp1 23:34 Dav Herman MD is Referral Physician. [facility] 23:50 IV discontinued, intact, bleeding controlled, No redness/swelling at site. Pressure vc1 dressing applied. Administered Medications: 22:34 Drug: NS 0.9% 1000 ml Route: IV; Rate: 1 bolus; Site: right antecubital; tp1 Medication: 22:47 VIS not applicable for this client. tp1 Outcome: 23:34 Discharge ordered by . [facility] 23:50 Discharged to home ambulatory, with family. vc1 23:50 Condition: good 23:50 Discharge instructions given to patient, Instructed on discharge instructions, follow up and referral plans. Demonstrated understanding of instructions, follow-up care. 23:50 Patient left the ED. vc1 Signatures: Dispatcher [employer] EDMunir Carrillo MD MD cha Jeffries, Jennifer jj6 Quiana Ahmadi RN RN jh5 Gudelia Malin RN RN tp1 Roxanne Sabillon RN RN vc1
--- NOTE | 2022-09-03 23:35 | EDPHYS ---
Physician Documentation [facility] Name: Anabel Frye Age: 22 yrs Sex: Female : 2000 Arrival Date: 09/03/2022 Time: 21:18 Bed 26 Private MD: ED Physician Munir Chavez HPI: 09/03 22:36 This 22 yrs old Female presents to ER via Ambulatory with complaints of felicitas Vaginal Bleeding, Abdominal Cramping. 22:36 The patient presents with pelvic pain, vaginal bleeding that is moderate. Onset: The felicitas symptoms/episode began/occurred 2 day(s) ago. Modifying factors: The symptoms are alleviated by nothing, the symptoms are aggravated by nothing. Associated signs and symptoms: The patient has no apparent associated signs or symptoms. Severity of symptoms: At their worst the symptoms were mild, moderate, in the emergency department the symptoms are unchanged. The patient is sexually active, reportedly has a single partner. The patient has not experienced similar symptoms in the past. 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 - Social history:: Smoking status: Patient denies any tobacco usage or history of. - Family history:: not pertinent. ROS: 22:36 Constitutional: Negative for fever, chills, and weight loss, Eyes: Negative for injury, felicitas pain, redness, and discharge, ENT: Negative for injury, pain, and discharge, Neck: Negative for injury, pain, and swelling, Cardiovascular: Negative for chest pain, palpitations, and edema, Respiratory: Negative for shortness of breath, cough, wheezing, and pleuritic chest pain, Abdomen/GI: Negative for abdominal pain, nausea, vomiting, diarrhea, and constipation, Back: Negative for injury and pain, MS/Extremity: Negative for injury and deformity, Skin: Negative for injury, rash, and discoloration, Neuro: Negative for headache, weakness, numbness, tingling, and seizure, Psych: Negative for depression, anxiety, suicide ideation, homicidal ideation, and hallucinations, Allergy/Immunology: Negative for hives, rash, and allergies, Endocrine: Negative for neck swelling, polydipsia, polyuria, polyphagia, and marked weight changes, Hematologic/Lymphatic: Negative for swollen nodes, abnormal bleeding, and unusual bruising. 22:36 : Positive for vaginal bleeding. Exam: 22:36 Constitutional: This is a well developed, well nourished patient who is awake, alert, felicitas and in no acute distress. Head/Face: Normocephalic, atraumatic. Eyes: Pupils equal round and reactive to light, extra-ocular motions intact. Lids and lashes normal. Conjunctiva and sclera are non-icteric and not injected. Cornea within normal limits. Periorbital areas with no swelling, redness, or edema. ENT: Nares patent. No nasal discharge, no septal abnormalities noted. Tympanic membranes are normal and external auditory canals are clear. Oropharynx with no redness, swelling, or masses, exudates, or evidence of obstruction, uvula midline. Mucous membranes moist. Neck: Trachea midline, no thyromegaly or masses palpated, and no cervical lymphadenopathy. Supple, full range of motion without nuchal rigidity, or vertebral point tenderness. No Meningismus. Chest/axilla: Normal chest wall appearance and motion. Nontender with no deformity. No lesions are appreciated. Cardiovascular: Regular rate and rhythm with a normal S1 and S2. No gallops, murmurs, or rubs. Normal PMI, no JVD. No pulse deficits. Respiratory: Lungs have equal breath sounds bilaterally, clear to auscultation and percussion. No rales, rhonchi or wheezes noted. No increased work of breathing, no retractions or nasal flaring. Abdomen/GI: Soft, non-tender, with normal bowel sounds. No distension or tympany. No guarding or rebound. No evidence of tenderness throughout. Back: No spinal tenderness. No costovertebral tenderness. Full range of motion. Skin: Warm, dry with normal turgor. Normal color with no rashes, no lesions, and no evidence of cellulitis. MS/ Extremity: Pulses equal, no cyanosis. Neurovascular intact. Full, normal range of motion. Neuro: Awake and alert, GCS 15, oriented to person, place, time, and situation. Cranial nerves II-XII grossly intact. Motor strength 5/5 in all extremities. Sensory grossly intact. Cerebellar exam normal. Normal gait. Psych: Awake, alert, with orientation to person, place and time. Behavior, mood, and affect are within normal limits. Vital Signs: 21:23 BP 109 / 68; Pulse 81; Resp 18; Temp 97.6; Pulse Ox 98% ; Weight 65.77 kg; Height 5 ft. [facility] 4 in. (162.56 cm); Pain 5/10; 22:49 BP 97 / 80; Pulse 69; Resp 16; Pulse Ox 100% on R/A; tp1 21:23 Body Mass Index 24.89 (65.77 kg, 162.56 cm) [facility] MDM: 21:23 Patient medically screened. felicitas 22:38 Differential diagnosis: nonspecific abdominal pain, urinary tract infection. Data felicitas reviewed: vital signs, nurses notes, lab test result(s), radiologic studies. 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 Counseling: I had a detailed discussion with the patient and/or guardian regarding: the historical points, exam findings, and any diagnostic results supporting the discharge/admit diagnosis, lab results, radiology results, the need for outpatient follow up, for definitive care, an OB/Gyne specialist. 09/03 21:23 Order name: Abo/rh Typing; Complete Time: 23:34 [facility] 09/03 21:23 Order name: Basic Metabolic Panel; Complete Time: 23:34 [facility] 09/03 21:23 Order name: CBC with Diff; Complete Time: 23:34 [facility] 09/03 21:23 Order name: Quantitative Hcg; Complete Time: 23:34 [facility] 09/03 22:41 Order name: Urine --Ancillary (enter results); Complete Time: 23:34 mw2 09/03 22:41 Order name: Urine Dipstick-Ancillary; Complete Time: 23:34 EDMS 09/03 21:23 Order name: US Transvaginal Ob; Complete Time: 22:34 [facility] 09/03 21: Order name: IV Saline Lock; Complete Time: 22:34 [facility] 09/03 21: Order name: Labs collected and sent; Complete Time: 22:34 [facility] 09/03 21: Order name: NPO; Complete Time: 21:48 [facility] 09/03 21: Order name: Urine Dipstick-Ancillary (obtain specimen); Complete Time: 22:41 [facility] 09/03 21:23 Order name: Urine Test (obtain specimen); Complete Time: 22:41 felicitas Administered Medications: 22:34 Drug: NS 0.9% 1000 ml Route: IV; Rate: 1 bolus; Site: right antecubital; tp1 Disposition Summary: 09/03/22 23:34 Discharge Ordered Location: Home felicitas Problem: new felicitas Symptoms: have improved felicitas Condition: Stable felicitas Diagnosis - Threatened felicitas - Missed felicitas Followup: felicitas - With: Private Physician - When: 1 - 2 days - Reason: Recheck today's complaints, Continuance of care, Re-evaluation by your physician Followup: felicitas - With: - When: 2 - 3 days - Reason: Recheck today's complaints, Re-evaluation by your physician Discharge Instructions: - Discharge Summary Sheet felicitas - Miscarriage felicitas - Care felicitas - Threatened Miscarriage felicitas - Vaginal Bleeding During , First Trimester felicitas - First Trimester of , [id number] felicitas - First Trimester of felicitas - Threatened Miscarriage, [id number] felicitas Forms: - Medication Reconciliation Form felicitas - Thank You Letter felicitas - Antibiotic Education felicitas - Prescription Opioid Use felicitas Signatures: Dispatcher [employer] Munir Galvin MD MD cha Rees, Jessica RN RN jh5 Gudelia Malin RN RN tp1
[2022-09-04 00:32] VITALS: TEMP 97.6
[2022-09-04 00:38] VITALS: BP 97/80; O2SAT 100
== END 2022-09-03 23:50 | disposition home or self-care (01) ==
LOC: ER 21:16
DX: O02.1 Missed abortion (principal); Z3A.00 Weeks of gestation of pregnancy not specified
CPT/HCPCS: 85025; 80048; 36415; 86900; 81025; 86901; 84702; 81003; 76817; 99284; J7030